=== PATIENT | female | born 1935 | race Caucasian/White ===

== ENCOUNTER → 2016-07-21 | Outpatient (CLI) | payer OTHER | LOC: FIMAGING 14:07 | PROVIDERS: ATTEND Family Medicine | DX: S32.10XA Unspecified fracture of sacrum, initial encounter for closed fracture (principal); S32.009A Unspecified fracture of unspecified lumbar vertebra, initial encounter for closed fracture ==

== ENCOUNTER 2016-11-11 18:55 | Inpatient (IN) | payer OTHER ==
[2016-11-11] MEDS ORDERED: NS 500 ML IV ONE (19:56)
--- NOTE | 2016-11-11 19:59 | EDPHY ---
H & P Stated Complaint: rolled out of bed last night onto walker, r ankle pain Time Seen by Provider: 11/11/16 19:42 HPI/ROS: CHIEF COMPLAINT: Right ankle swelling altered mental status HISTORY OF PRESENT ILLNESS: The patient is an 81-year-old female whose daughter brings her to the emergency department with her daughter complaining of swelling in her right ankle. She thinks that it may have occurred when she rolled out of bed this morning. She does not remember injuring it however. She is able to ambulate. She denies any hip or knee pain. She has very slight swelling in the left ankle as well but 2+ edema right. No pain with range of motion or palpation. According to the daughter the patient has also been increasingly confused today compared to baseline and compared to yesterday. No fever. No urinary symptoms. No abdominal pain, nausea vomiting. No lightheadedness or dizziness or headaches. Patient states that she feels fine. She is more worried about her ankle. She does not have any focal neurologic deficits. REVIEW OF SYSTEMS: Constitutional: denies: chills, fever, recent illness, recent injury EENTM: denies: blurred vision, double vision, nose congestion Respiratory: denies: cough, shortness of breath Cardiac: denies: chest pain, irregular heart rate, lightheadedness, palpitations Gastrointestinal/Abdominal: denies: abdominal pain, diarrhea, nausea, vomiting, blood streaked stools Genitourinary: denies: dysuria, frequency, hematuria, pain Musculoskeletal: denies: joint pain, muscle pain Skin: denies: lesions, rash, jaundice, bruising Neurological: denies: headache, numbness, paresthesia, tingling, dizziness, weakness Hematologic/Lymphatic: denies: blood clots, easy bleeding, easy bruising Immunologic/allergic: denies: HIV/AIDS, transplant EXAM: GENERAL: Well-appearing, well-nourished and in no acute distress. HEAD: Atraumatic, normocephalic. EYES: Pupils equal round and reactive to light, extraocular movements intact, sclera anicteric, conjunctiva are normal. ENT: TMs normal, nares patent, oropharynx clear without exudates. Moist mucous membranes. NECK: Normal range of motion, supple without lymphadenopathy or JVD. LUNGS: Breath sounds clear to auscultation bilaterally and equal. No wheezes rales or rhonchi. HEART: Regular rate and rhythm without murmurs, rubs or gallops. ABDOMEN: Soft, nontender, normoactive bowel sounds. No guarding, no rebound. No masses appreciated. BACK: No CVA tenderness, no spinal tenderness, step-offs or deformities EXTREMITIES: Slight edema in both ankles right greater than left, no tenderness or swelling or erythema no pain with range of motion. NEUROLOGICAL: Cranial nerves II through XII grossly intact. Normal speech, normal gait. 5/5 strength, normal movement in all extremities, normal sensation PSYCH: Normal mood, normal affect. SKIN: Warm, dry, normal turgor, no visible rashes or lesions. Source: Patient Exam Limitations: No limitations - Personal History Current Tetanus/Diphtheria Vaccine: Unsure Current Tetanus Diphtheria and Acellular Pertussis (TDAP): Unsure - Medical/Surgical History Hx Asthma: No Hx Chronic Respiratory Disease: No Hx Diabetes: No Hx Cardiac Disease: No Hx Renal Disease: No Hx Cirrhosis: No Hx Alcoholism: No Hx HIV/AIDS: No Hx Splenectomy or Spleen Trauma: No Other PMH: hypothyroid - Family History Significant Family History: No pertinent family hx - Social History Smoking Status: Never smoked Alcohol Use: Sober Drug Use: None Constitutional: Initial Vital Signs Temperature (C) 36.0 C 11/11/16 18:59 Heart Rate 78 11/11/16 18:59 Respiratory Rate 16 11/11/16 18:59 Blood Pressure 144/61 H 11/11/16 18:59 O2 Sat (%) 97 11/11/16 18:59 O2 Delivery Mode Room Air Allergies/Adverse Reactions: No Known Allergies Allergy (Verified 12/07/11 09:18) Home Medications: Medication Instructions Recorded Levothyroxine [Synthroid 50 mcg 50 mcg PO DAILY06 10/23/09 (*)] Aspirin [Aspirin 81mg (*)] 81 mg PO DAILY 11/12/16 Cholecalciferol Vit D3 [Vitamin D3 2,000 units PO DAILY 11/12/16 2000 units tab (OTC)] Donepezil HCl [Aricept] 11.5 mg PO HS 11/12/16 levOFLOXACIN [Levofloxacin] 500 mg PO DAILY #8 tablet 11/12/16 Medical Decision Making - Diagnostics EKG Interpretation: An EKG obtained and was read and documented in trace view. Please see trace view for full reading and report. Sinus rhythm, unchanged from previous Imaging: Discussed imaging studies w/ inbound call center representative Radiologist, I viewed and interpreted images myself ED Course/Re-evaluation: The patient's initial lactate was not placed on ice. The 2nd 1 was. I suspect that she is not truly septic. We will have given her the fluid boluses regardless and antibiotics. I will admit her for urinary tract infection and altered mental status. No obvious explanation for her right ankle swelling. 10:35 p.m. we discussed the case with Kitty Mendes who will admit to the hospital service. Differential Diagnosis: Partial list of the Differential diagnosis considered include but were not limited to; urinary tract infection, ankle sprain, fracture and although unlikely based on the history and physical exam, I also considered cellulitis, CVA, acute coronary disease, DVT. 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 Medications Given: Discontinued Medications Sodium Chloride (Ns) 500 mls @ 1,000 mls/hr IV ONCE ONE PRN Reason: Protocol Stop: 11/11/16 20:25 Last Admin: 11/11/16 20:15 Dose: 500 mls Ceftriaxone Sodium/Dextrose (Rocephin 1 Gm (Premix)) 50 mls @ 100 mls/hr IV EDNOW ONE PRN Reason: Protocol Stop: 11/11/16 22:53 Last Admin: 11/11/16 22:44 Dose: 50 mls Sodium Chloride (Ns) 2,000 mls @ 4,000 mls/hr 30 ml/kg infuse over 30 min ( 2000 ml) IV EDNOW ONE PRN Reason: Protocol Stop: 11/11/16 22:54 Last Admin: 11/11/16 22:40 Dose: 2,000 mls Departure - Departure Disposition: [facility] Inpatient Acute Clinical Impression: Urinary tract infection Qualifiers: Urinary tract infection type: acute cystitis Hematuria presence: without hematuria Qualified Code(s): N30.00 - Acute cystitis without hematuria Altered mental status Qualifiers: Altered mental status type: disorientation Qualified Code(s): R41.0 - Disorientation, unspecified Condition: Fair
--- NOTE | 2016-11-11 20:22 | CPEKG ---
Heart Rate: 90 RR Interval: 667 P-R Interval: 136 QRSD Interval: 86 QT Interval: 376 QTC Interval: 460 P Roberts: 84 QRS Roberts: 72 T Wave Roberts: -32 EKG Severity - NORMAL ECG - EKG Impression: SINUS RHYTHM EKG Impression: unchanged from previous Electronically Signed By: Ravindra Saleh 11-Nov-2016 20:53:28
[2016-11-11 20:34] LABS: % IMMATURE GRANULYOCYTES 0.8 % (0.0-1.1); ABSOLUTE IMMATURE GRANULOCYTES 0.07 10^3/uL (0.00-0.10); ADD DIFF? NO; ADD MORPH? NO; ADD SCAN? NO; ATYPICAL LYMPHOCYTE FLAG 0 (0-99); FRAGMENT RBC FLAG 0 (0-99); HEMATOCRIT 35.7 % (38.0-47.0); HEMOGLOBIN 11.7 g/dL (12.6-16.3); LEFT SHIFT FLG 10 (0-99); LIPEMIA HEMOLYSIS FLAG 80 (0-99); MEAN CELL HEMOGLOBIN 33.7 pg (27.9-34.1); MEAN CELL HEMOGLOBIN CONCENTR. 32.8 g/dL (32.4-36.7); MEAN CELL VOLUME 102.9 fL (81.5-99.8); PLATELET CLUMPS FLAG 10 (0-99); PLATELET COUNT 166 10^3/uL (150-400); RED BLOOD CELL COUNT 3.47 10^6/uL (4.18-5.33); RED CELL DISTRIBUTION WIDTH 14.2 % (11.5-15.2)
[2016-11-11 20:43] LABS: APTT 26.1 SEC (23.0-38.0); INR 1.03 (0.83-1.16); PROTIME(PATIENT) 13.4 SEC (12.0-15.0)
[2016-11-11 20:49] LABS: ALANINE AMINOTRANSFERASE 38 IU/L (9-52); ALBUMIN 3.9 g/dL (3.5-5.0); ALKALINE PHOSPHATASE 96 IU/L (38-126); ANION GAP 8 mEq/L (8-16); ASPARTATE AMINOTRANSFERASE 30 IU/L (14-46); BILIRUBIN,TOTAL 1.7 mg/dL (0.1-1.4); BILIRUBIN-CONJUGATED 0.4 mg/dL (0.0-0.5); BILIRUBIN-UNCONJUGATED 1.3 mg/dL (0.0-1.1); CALCIUM 9.6 mg/dL (8.5-10.4); CARBON DIOXIDE 23 mEq/l (22-31); CHLORIDE 108 mEq/L (97-110); CREATININE 0.7 mg/dL (0.6-1.0); GLOMERULAR FILTRATION RATE > 60; GLUCOSE 122 mg/dL (70-100); POTASSIUM 3.5 mEq/L (3.5-5.2); SODIUM 139 mEq/L (134-144); TOTAL PROTEIN 6.8 g/dL (6.3-8.2)
[2016-11-11 21:01] LABS: TROPONIN I < 0.012 ng/mL (0-0.034)
[2016-11-11 21:27] LABS: LACGHOST ORDER
[2016-11-11 22:07] LABS: BACTERIA 4+ /hpf (NONE SEEN); COLOR YELLOW; LEUKOCYTE ESTERASE,URINE 2+ (NEGATIVE); MUCUS 3+ /lpf (NONE-1+); NITRITE,URINE NEGATIVE (NEGATIVE); WBC,URINE 50-182 /hpf (0-3)
[2016-11-11] MEDS ORDERED: NS 2,000 ML IV ONE (22:25)
--- NOTE | 2016-11-11 23:50 | PDGENHP ---
History and Physical - Chief Complaint confusion, fall - History of Present Illness Patient is an 81 year old female with hypothyroidism, mild dementia, history of frequent falls who presents to the ED after a fall this morning and altered mental status. Patient lives alone in an independent living facility ([facility]); this morning at around 430AM she was attempting to get out of bed to use the bathroom, however tripped over the walker that was next to her bed. She fell down to the ground, did not lose consciousness, but could not get back up due to generalized weakness. She was able to press her call button and assistance came. She was evaluated by SNF staff, her daughter was called and no major injuries/abnormalities were discovered, so she was not transported to the ED at that time. Patient states she went back to bed, woke up feeling fatigued, generally weak and lacking appetite. When her daughter came to visit at about 5pm, she found her mother to be slightly confused, had ankle swelling and was significantly weak, so she brought her to the ED for further assessment. She denies any recent fevers, chills, headache, chest pain, palpitations, cough , shortness of breath, nausea, vomiting, diarrhea or obvious urinary symptoms, although she is incontinent at baseline. On arrival to the ED, patient was afebrile and hemodynamically stable. Labs revealed normal cbc and bmp, initially elevated lactic acid. CXR was unremarkable, EKG showed normal sinus rhythm and imaging of her R ankle showed no acute fracture. CT head was also negative for any acute abnormalities. UA was then found to be positive for wbc and leuk esterase, so she was cultured, given IV antibiotics and admitted for further management. History Information - Allergies/Home Medication List Allergies/Adverse Reactions: No Known Allergies Allergy (Verified 12/07/11 09:18) Home Medications: Synthroid 10/23/09 [Last Taken Unknown] I have personally reviewed and updated: family history, medical history, social history, surgical history - Past Medical History Additional medical history: hypothyroidism. mild dementia. frequent falls - Surgical History Additional surgical history: hysterectomy. appendenctomy. bilateral hip replacements - Family History Positive for: non-pertinent - Social History Smoking Status: Never smoked Alcohol Use: None Drug Use: None Additional social history: Patient originally from [facility], lives in Independent living, daughter lives nearby. Review of Systems ROS: 10pt was reviewed & negative except for what was stated in HPI & below Physical Exam Temp Pulse Resp BP Pulse Ox 36.9 C 70 18 131/67 H 93 11/11/16 22:26 11/11/16 23:19 11/11/16 23:19 11/11/16 23:19 11/11/16 23:19 Constitutional: no apparent distress, appears nourished, not in pain Eyes: PERRL, anicteric sclera, EOMI Ears, Nose, Mouth, Throat: moist mucous membranes, hearing normal, ears appear normal, no oral mucosal ulcers Cardiovascular: regular rate and rhythym, no murmur, rub, or gallop, pulses symmetric bilaterally, edema (trace bilateral LE edema), No JVD Peripheral Pulses: 2+: dorsalis-pedis (R), dorsalis-pedis (L) Respiratory: no respiratory distress, no rales or rhonchi, clear to auscultation Gastrointestinal: normoactive bowel sounds, soft, non-tender abdomen, no palpable masses, No guarding, No rebound, No distension Genitourinary: no bladder fullness, no bladder tenderness Skin: warm, normal color, no fluctuance, no induration, abrasion (scattered abrasions on upper extremities; L elbow abrasion), No mottled Musculoskeletal: full muscle strength, no muscle tenderness, normal joint ROM, no joint effusions Neurologic: AAOx3, sensation intact bilaterally, CN II-XII Intact, No weakness, No numbness, No pronator drift, No facial droop Psychiatric: interacting appropriately, not anxious, not encephalopathic, thought process linear Lab Data & Imaging Review 11/11/16 20:15 11/11/16 20:15 WBC 8.48 10^3/uL (3.80-9.50) 11/11/16 20:15 RBC 3.47 10^6/uL (4.18-5.33) L 11/11/16 20:15 Hgb 11.7 g/dL (12.6-16.3) L 11/11/16 20:15 Hct 35.7 % (38.0-47.0) L 11/11/16 20:15 MCV 102.9 fL (81.5-99.8) H 11/11/16 20:15 MCH 33.7 pg (27.9-34.1) 11/11/16 20:15 MCHC 32.8 g/dL (32.4-36.7) 11/11/16 20:15 RDW 14.2 % (11.5-15.2) 11/11/16 20:15 Plt Count 166 10^3/uL (150-400) 11/11/16 20:15 MPV 11.0 fL (8.7-11.7) 11/11/16 20:15 Neut % (Auto) 68.9 % (39.3-74.2) 11/11/16 20:15 Lymph % (Auto) 18.4 % (15.0-45.0) 11/11/16 20:15 Nuckolls % (Auto) 8.3 % (4.5-13.0) 11/11/16 20:15 Eos % (Auto) 2.9 % (0.6-7.6) 11/11/16 20:15 Baso % (Auto) 0.7 % (0.3-1.7) 11/11/16 20:15 Nucleat RBC Rel Count 0.0 % (0.0-0.2) 11/11/16 20:15 Absolute Neuts (auto) 5.84 10^3/uL (1.70-6.50) 11/11/16 20:15 Absolute Lymphs (auto) 1.56 10^3/uL (1.00-3.00) 11/11/16 20:15 Absolute Monos (auto) 0.70 10^3/uL (0.30-0.80) 11/11/16 20:15 Absolute Eos (auto) 0.25 10^3/uL (0.03-0.40) 11/11/16 20:15 Absolute Basos (auto) 0.06 10^3/uL (0.02-0.10) 11/11/16 20:15 Absolute Nucleated RBC 0.00 10^3/uL (0-0.01) 11/11/16 20:15 Immature Gran % 0.8 % (0.0-1.1) 11/11/16 20:15 Immature Gran # 0.07 10^3/uL (0.00-0.10) 11/11/16 20:15 PT 13.4 SEC (12.0-15.0) 11/11/16 20:15 INR 1.03 (0.83-1.16) 11/11/16 20:15 APTT 26.1 SEC (23.0-38.0) 11/11/16 20:15 VBG Lactic Acid 0.8 mmol/L (0.7-2.1) 11/11/16 22:02 Sodium 139 mEq/L (134-144) 11/11/16 20:15 Potassium 3.5 mEq/L (3.5-5.2) 11/11/16 20:15 Chloride 108 mEq/L (97-110) 11/11/16 20:15 Carbon Dioxide 23 mEq/l (22-31) 11/11/16 20:15 Anion Gap 8 mEq/L (8-16) 11/11/16 20:15 BUN 23 mg/dL (7-23) 11/11/16 20:15 Creatinine 0.7 mg/dL (0.6-1.0) 11/11/16 20:15 Estimated GFR > 60 11/11/16 20:15 Glucose 122 mg/dL (70-100) H 11/11/16 20:15 Calcium 9.6 mg/dL (8.5-10.4) 11/11/16 20:15 Total Bilirubin 1.7 mg/dL (0.1-1.4) H 11/11/16 20:15 Conjugated Bilirubin 0.4 mg/dL (0.0-0.5) 11/11/16 20:15 Unconjugated Bilirubin 1.3 mg/dL (0.0-1.1) H 11/11/16 20:15 AST 30 IU/L (14-46) 11/11/16 20:15 ALT 38 IU/L (9-52) 11/11/16 20:15 Alkaline Phosphatase 96 IU/L (38-126) 11/11/16 20:15 Troponin I < 0.012 ng/mL (0-0.034) 11/11/16 20:15 NT-Pro-B Natriuret Pep 127 pg/mL (0-450) 11/11/16 20:15 Total Protein 6.8 g/dL (6.3-8.2) 11/11/16 20:15 Albumin 3.9 g/dL (3.5-5.0) 11/11/16 20:15 Lipase 104.0 IU/L (23-300) 11/11/16 20:15 Urine Color YELLOW 11/11/16 21:15 Urine Appearance HAZY 11/11/16 21:15 Urine pH 5.0 (5.0-7.5) 11/11/16 21:15 Ur Specific [place] 1.020 (1.002-1.030) 11/11/16 21:15 Urine Protein NEGATIVE (NEGATIVE) 11/11/16 21:15 Urine Ketones NEGATIVE (NEGATIVE) 11/11/16 21:15 Urine Blood 2+ (NEGATIVE) H 11/11/16 21:15 Urine Nitrate NEGATIVE (NEGATIVE) 11/11/16 21:15 Urine Bilirubin NEGATIVE (NEGATIVE) 11/11/16 21:15 Urine Urobilinogen 2.0 EU (0.2-1.0) H 11/11/16 21:15 Ur Leukocyte Esterase 2+ (NEGATIVE) H 11/11/16 21:15 Urine RBC 5-10 /hpf (0-3) H 11/11/16 21:15 Urine WBC 50-182 /hpf (0-3) H 11/11/16 21:15 Ur Epithelial Cells NONE SEEN /lpf (NONE-1+) 11/11/16 21:15 Urine Bacteria 4+ /hpf (NONE SEEN) H 11/11/16 21:15 Urine Mucus 3+ /lpf (NONE-1+) H 11/11/16 21:15 Urine Glucose NEGATIVE (NEGATIVE) 11/11/16 21:15 Visualized and Interpreted Chest x-ray results: Yes Chest X-Ray results: no infiltrate Visualized and Interpreted imaging results: Yes Interpretation: CT head: no acute abnormalitites; chronic atrophy. R ankle XRay: no acute fracture. LE doppler: no dvt present Visualized and Interpreted EKG results: Yes EKG Interpretation: Positive for: normal sinsus rhythm (no st/t wave abnormalities) Assessment & Plan Assessment: Patient is an 81 year old female with hypothyroidism, mild dementia and history of frequent falls, who presents to the ED with generalized weakness, altered mental status and a fall earlier in the day. ED evaluation reveals acute UTI. Plan: # fall Per patient and daughter's description of the event, sound to be mechanical in nature. She denies any preceding/associated symptoms. Troponin and BNP are negative and EKG is nonischemic. Will check TTE in am, treat acute infection and obtain PT/OT evaluation. # acute encephalopathy Per daughter, patient has very mild dementia, but today was acutely more confused than her baseline. Likely metabolic encephalopathy due to acute infection. The rest of labs, including electrolytes, are within normal limits and CT head also is negative for any acute abnormalities. Will check TSH, continue home donepezil and monitor. # UTI Patient does not meet sepsis or SIRS criteria on presentation, but positive UA in setting of acute encephalopathy/generalized weakness is consistent with UTI. Will continue antibiotics and monitor cultures. # hypothyroidism Will check TSH and resume home synthroid. # dispo: admit to observation status # gen: regular diet DVT ppx: lovenox Full code
[2016-11-11] MEDS ORDERED: ACETAMINOPHEN 325 MG TAB PO PRN (23:56)
[2016-11-11] MEDS ORDERED: ONDANSETRON DISINTEGRATING 4 MG TAB PO PRN (23:56)
[2016-11-11] MEDS ORDERED: ONDANSETRON 4 MG/2 ML VIAL IVP PRN (23:56)
[2016-11-12 04:41] LABS: % IMMATURE GRANULYOCYTES 0.4 % (0.0-1.1); ABSOLUTE IMMATURE GRANULOCYTES 0.03 10^3/uL (0.00-0.10); ADD DIFF? NO; ADD MORPH? NO; ADD SCAN? NO; ATYPICAL LYMPHOCYTE FLAG 0 (0-99); FRAGMENT RBC FLAG 0 (0-99); HEMATOCRIT 28.8 % (38.0-47.0); HEMOGLOBIN 9.5 g/dL (12.6-16.3); LEFT SHIFT FLG 10 (0-99); LIPEMIA HEMOLYSIS FLAG 80 (0-99); MEAN CELL HEMOGLOBIN 33.9 pg (27.9-34.1); MEAN CELL VOLUME 102.9 fL (81.5-99.8); MEAN PLATELET VOLUME 11.1 fL (8.7-11.7); PLATELET CLUMPS FLAG 0 (0-99); PLATELET COUNT 128 10^3/uL (150-400); RED CELL DISTRIBUTION WIDTH 14.2 % (11.5-15.2)
[2016-11-12 05:03] LABS: ALANINE AMINOTRANSFERASE 32 IU/L (9-52); ALBUMIN 2.6 g/dL (3.5-5.0); ALKALINE PHOSPHATASE 66 IU/L (38-126); ANION GAP 4 mEq/L (8-16); ASPARTATE AMINOTRANSFERASE 25 IU/L (14-46); BILIRUBIN,TOTAL 0.9 mg/dL (0.1-1.4); CALCIUM 8.5 mg/dL (8.5-10.4); CARBON DIOXIDE 22 mEq/l (22-31); CHLORIDE 113 mEq/L (97-110); CREATININE 0.7 mg/dL (0.6-1.0); GLOMERULAR FILTRATION RATE > 60; GLUCOSE 132 mg/dL (70-100); MAGNESIUM 1.8 mg/dL (1.6-2.3); POTASSIUM 3.6 mEq/L (3.5-5.2); SODIUM 139 mEq/L (134-144); TOTAL PROTEIN 5.1 g/dL (6.3-8.2)
[2016-11-12 05:14] LABS: TROPONIN I 0.022 ng/mL (0-0.034)
[2016-11-12 05:32] LABS: CREATINE KINASE-MB FRACTION 3.55 ng/mL (0-3.19)
[2016-11-12 06:09] LABS: CK-MB INTERPRETATION NEGATIVE (NEGATIVE)
[2016-11-12] MEDS: ENOXAPARIN 40 MG/0.4 ML SYR SC SCH (08:51)
[2016-11-12] MEDS: CHOLECALCIFEROL VIT D3 2,000 UNITS TAB/CAP PO SCH (10:46)
[2016-11-12] MEDS: ASPIRIN 81 MG CHEWABLE TAB PO SCH (10:46)
--- NOTE | 2016-11-12 13:48 | PDIAF ---
- Diagnosis Code Status: Full Code - Medication Management Discharge Medications: Medications to Continue on Transfer Levothyroxine [Synthroid 50 mcg (*)] 50 mcg PO DAILY06 10/23/09 [Last Taken ] Aspirin [Aspirin 81mg (*)] 81 mg PO DAILY 11/12/16 [Last Taken 11/11/16] Cholecalciferol Vit D3 [Vitamin D3 2000 units tab (OTC)] 2,000 units PO DAILY [Last Taken 11/11/16] Donepezil HCl [Aricept] 11.5 mg PO HS 11/12/16 [Last Taken 11/10/16] levOFLOXACIN [Levofloxacin] 500 mg PO DAILY #8 tablet 11/12/16 [Last Taken Unknown] Discharge Medications: Refer to the Discharge Home Medication list for PRN reason. - Orders Services needed: Home Care, Registered Nurse, Physical Therapy, Occupational Therapy Home Care Face to Face: I certify that this patient was under my care and that I had the required [id number] encounter meeting the encounter requirements on the discharge day. My findings support the fact that the patient is homebound as defined in CMS Chapter 7 Medicare Benefits Manual 30.1.1, The condition of the patient is such that there exists a normal inability to leave home and consequently, leaving home would require a considerable and taxing effort. - Follow Up Care Current Providers and Referrals: Laney Abdullahi MD [Primary Care Provider] - As per Instructions
--- NOTE | 2016-11-12 16:01 | HOSPPROG ---
Hospitalist Progress Note Assessment/Plan: 81 yo F with hx of hypothyroid, mild dementia and frequent falls admitted with acute encephalopathy in setting of uti # acute encephalopathy: resolved and seems to be back at baseline, she does have baseline dementia however # UTI: e/o UTI on UA, cultures pending. Likely etiology for above. Started on ctx and will transition to oral abx at dc when culture data available. Will treat as complicated UTI for a longer course given associated encephalopathy as above # frequent falls: has been an ongoing issue apparently, pt/ot involved and are both thinking she will likely be able to go home with home health but felt that it might be best to monitor at least one more day in house prior to dc given safety concerns. # right lower extremity edema: negative us for dvt, xray personally reviewed without e/o fracture # hypothyroid: TSH appropriate, continued on lt4 # IP status, will need > 48 hours stay for multiple active issues and unsafe in her mobility Patient new to my care. Old records reviewed and summarized as above. Care plan reviewed with CM. Subjective: no significant overnight events, patient is feeling well and eager to dc home Objective: Vital Signs Temp Pulse Resp BP Pulse Ox 36.6 C 82 18 108/55 L 98 11/12/16 11:24 11/12/16 11:24 11/12/16 11:24 11/12/16 11:24 11/12/16 11:24 Laboratory Results 11/12/16 04:13 11/12/16 04:13 11/11/16 11/12/16 11/13/16 05:59 05:59 05:59 Intake Total 2250 Balance 2250 PT 13.4 SEC (12.0-15.0) 11/11/16 20:15 INR 1.03 (0.83-1.16) 11/11/16 20:15 awake alert nad anicteric op clear rrr no mrg cta b soft nt nd rle pitting edema to above ankle warm dry well perfused oriented appropriate, limited short term memory - Time Spent With Patient Time Spent with Patient: greater than 35 minutes Time Spent with Patient: Greater than 35 minutes spent on this patients care, greater than 50% of time spent counseling, educating, and coordinating care regarding the above mentioned plan. ICD10 Worksheet Patient Problems: Problems Problem Status Onset Urinary tract infection Acute Altered mental status Acute
[2016-11-12] MEDS: DONEPEZIL PO SCH (20:59)
[2016-11-12] MEDS ORDERED: DONEPEZIL HCL PO SCH (21:00)
[2016-11-13 04:30] LABS: HEMATOCRIT 29.8 % (38.0-47.0); MEAN CELL HEMOGLOBIN 34.4 pg (27.9-34.1); MEAN CELL HEMOGLOBIN CONCENTR. 33.6 g/dL (32.4-36.7); MEAN CELL VOLUME 102.4 fL (81.5-99.8); RED BLOOD CELL COUNT 2.91 10^6/uL (4.18-5.33); RED CELL DISTRIBUTION WIDTH 14.5 % (11.5-15.2)
[2016-11-13] MEDS: LEVOTHYROXINE 50 MCG TAB PO SCH (06:45)
[2016-11-13] MEDS: ENOXAPARIN 40 MG/0.4 ML SYR SC SCH (09:30)
[2016-11-13] MEDS: CHOLECALCIFEROL VIT D3 2,000 UNITS TAB/CAP PO SCH (09:30)
[2016-11-13] MEDS: ASPIRIN 81 MG CHEWABLE TAB PO SCH (09:30)
--- NOTE | 2016-11-13 18:49 | HOSPPROG ---
Hospitalist Progress Note Assessment/Plan: * Metabolic encephalopathy - improving * UTI -IV ceftriaxone pending culture * Dementia - recurrent falls -not yet safe for discharge home Subjective: No complaints, thinks she is getting stronger. Objective: Vital Signs Temp Pulse Resp BP Pulse Ox 36.6 C 69 16 116/51 L 95 11/13/16 17:59 11/13/16 17:59 11/13/16 17:59 11/13/16 17:59 11/13/16 17:59 11/12/16 11/13/16 11/14/16 05:59 05:59 05:59 Intake Total 300 Balance 300 PT 13.4 SEC (12.0-15.0) 11/11/16 20:15 INR 1.03 (0.83-1.16) 11/11/16 20:15 - Physical Exam Constitutional: no apparent distress, appears nourished, not in pain Cardiovascular: regular rate and rhythym, no murmur, rub, or gallop Respiratory: no respiratory distress, no rales or rhonchi, clear to auscultation Gastrointestinal: normoactive bowel sounds, soft, non-tender abdomen, no palpable masses Skin: no rashes or abrasions, no fluctuance, no induration Neurologic: AAOx3, sensation intact bilaterally Psychiatric: interacting appropriately, not anxious, not encephalopathic, thought process linear ICD10 Worksheet Patient Problems: Problems Problem Status Onset Altered mental status Acute Urinary tract infection Acute
[2016-11-13] MEDS: DONEPEZIL PO SCH (20:21)
[2016-11-14] MEDS: LEVOTHYROXINE 50 MCG TAB PO SCH (06:33)
[2016-11-14] MEDS: CHOLECALCIFEROL VIT D3 2,000 UNITS TAB/CAP PO SCH (08:05)
[2016-11-14] MEDS: ASPIRIN 81 MG CHEWABLE TAB PO SCH (08:05)
[2016-11-14] MEDS: ENOXAPARIN 40 MG/0.4 ML SYR SC SCH (08:06)
--- NOTE | 2016-11-14 11:19 | PDIAF ---
- Diagnosis Diagnosis: UTI with encephalopathy Code Status: Full Code - Medication Management Discharge Medications: Medications to Continue on Transfer Levothyroxine [Synthroid 50 mcg (*)] 50 mcg PO DAILY06 10/23/09 [Last Taken ] Aspirin [Aspirin 81mg (*)] 81 mg PO DAILY 11/12/16 [Last Taken 11/11/16] Cholecalciferol Vit D3 [Vitamin D3 2000 units tab (OTC)] 2,000 units PO DAILY [Last Taken 11/11/16] Donepezil HCl [Aricept] 11.5 mg PO HS 11/12/16 [Last Taken 11/10/16] Cephalexin [Keflex (*)] 500 mg PO BID #10 cap 11/14/16 [Last Taken Unknown] Discharge Medications: Refer to the Discharge Home Medication list for PRN reason. - Orders Services needed: Home Care, Registered Nurse, Physical Therapy, Occupational Therapy Home Care Face to Face: I certify that this patient was under my care and that I had the required [id number] encounter meeting the encounter requirements on the discharge day. My findings support the fact that the patient is homebound as defined in CMS Chapter 7 Medicare Benefits Manual 30.1.1, The condition of the patient is such that there exists a normal inability to leave home and consequently, leaving home would require a considerable and taxing effort. Diet Recommendation: no restrictions on diet Additional: Home medication review and assistance - Follow Up Care Current Providers and Referrals: Laney Abdullahi MD [Primary Care Provider] - As per Instructions
[2016-11-14] MEDS ORDERED: CEPHALEXIN 500 MG CAP PO SCH (12:00)
--- NOTE | 2016-11-14 17:07 | GDS ---
[f rep st] DISCHARGE SUMMARY Date of discharge 11/15/16 DISCHARGE DIAGNOSES: 1. Urinary tract infection. 2. Metabolic encephalopathy. 3. Dementia. HISTORY: The patient is an 81-year-old female, who presents with confusion and increasing weakness. She was diagnosed with urinary tract infection. The urine culture has grown klebsiella sensitive to cephalosporins. She was treated with IV ceftriaxone in the hospital and is being discharged on oral Keflex. She did have significant confusion and weakness on presentation, but that is improving to the point where she can discharge home safely to her independent living at the [place]. Home health PT, OT, and VNS has been arranged by Case Management. DISCHARGE MEDICATIONS: Please see computerized record for full detailed list. New medications: Keflex 500 mg p.o. twice daily for 5 more days additional. ADDITIONAL DISCHARGE INSTRUCTIONS: Home health PT, OT, VNS. Greater than 30 minutes' time was spent in arranging this discharge. Patient was seen and examined by me on the day of discharge. /[id number]/MODL MTDD
[2016-11-14] MEDS: CEPHALEXIN 500 MG CAP PO SCH (20:59)
[2016-11-14] MEDS: DONEPEZIL PO SCH (21:01)
[2016-11-15] MEDS: LEVOTHYROXINE 50 MCG TAB PO SCH (06:27)
[2016-11-15 08:06] VITALS: RESP 15
[2016-11-15] MEDS: CHOLECALCIFEROL VIT D3 2,000 UNITS TAB/CAP PO SCH (10:24)
[2016-11-15] MEDS: ENOXAPARIN 40 MG/0.4 ML SYR SC SCH (10:25)
[2016-11-15] MEDS: ASPIRIN 81 MG CHEWABLE TAB PO SCH (10:25)
[2016-11-15] MEDS: CEPHALEXIN 500 MG CAP PO SCH (10:25)
[2016-11-15 11:14] VITALS: BP 99/47; PULSE 72; TEMP 97.5; O2SAT 92
--- NOTE | 2016-11-15 16:09 | HOSPPROG ---
Hospitalist Progress Note Assessment/Plan: This document is to reflect my visit with Lupe on 11/14/16 * Metabolic encephalopathy - improving * UTI -PO Keflex * Dementia Per PT/OT okay for DC home with home health Daughter did not arrive for garbage pick up worker Subjective: no c/o - feels ready for home Objective: Vital Signs Temp Pulse Resp BP Pulse Ox 36.4 C 72 15 99/47 L 92 11/15/16 11:13 11/15/16 11:13 11/15/16 11:13 11/15/16 11:13 11/15/16 11:13 11/14/16 11/15/16 11/16/16 05:59 05:59 05:59 Intake Total 600 380 Balance 600 380 PT 13.4 SEC (12.0-15.0) 11/11/16 20:15 INR 1.03 (0.83-1.16) 11/11/16 20:15 - Physical Exam Constitutional: no apparent distress, appears nourished, not in pain Cardiovascular: regular rate and rhythym, no murmur, rub, or gallop Respiratory: no respiratory distress, no rales or rhonchi, clear to auscultation Gastrointestinal: normoactive bowel sounds, soft, non-tender abdomen, no palpable masses Skin: no rashes or abrasions, no fluctuance, no induration Neurologic: AAOx3, sensation intact bilaterally Psychiatric: interacting appropriately, not anxious, not encephalopathic, thought process linear ICD10 Worksheet Patient Problems: Problems Problem Status Onset Altered mental status Acute Urinary tract infection Acute
== END 2016-11-15 14:00 | disposition home health service (06) | DRG 689 ==
LOC: F2W 11-12 00:13 → OBSVTOIN 11-13 13:07
PROVIDERS: ADMIT Internal Medicine; ATTEND Internal Medicine
DX: N39.0 Urinary tract infection, site not specified (principal); B96.1 Klebsiella pneumoniae [K. pneumoniae] as the cause of diseases classified elsewhere; G93.41 Metabolic encephalopathy; M25.471 Effusion, right ankle; R29.6 Repeated falls; F03.90 Unspecified dementia, unspecified severity, without behavioral disturbance, psychotic disturbance, mood disturbance, and anxiety; E03.9 Hypothyroidism, unspecified
CPT/HCPCS: 96365; 97116-GP; 97161-GP; 97166-GO; 97530-GO; 97530-GP; 97535-GO; G0378; G8978-GP-CJ; G8979-GP-CI; G8987-GO-CJ; G8988-GO-CI; G8989-GO-CJ; J0696; J1650

== ENCOUNTER 2017-06-06 15:29 | Emergency (ER) | payer OTHER ==
[2017-06-06 15:38] VITALS: BP 151/61; PULSE 68; RESP 20; TEMP 97.7; O2SAT 99
--- NOTE | 2017-06-06 16:46 | EDPHY ---
H & P Stated Complaint: fall, left leg skin tear Time Seen by Provider: 06/06/17 16:45 HPI/ROS: HPI: This is a 82-year-old female presents with Chief Complaint: fall, left leg skin tear Location: Left lower leg Quality: Injury Duration: Prior to arrival Signs and Symptoms: +bleeding, no radiation, no numbness, no weakness, no tingling, no incontinence, no decreased range of motion, no swelling, + mild pain Timing: Sudden Severity: [id number] Context: Patient was sitting in a walker when she leaned towards the right side and lost her balance; falling from a sitting position in her walker onto tile floor. She reports that she hit her right shoulder 1st but somehow sustained a skin tear to her left lower leg that she suspects is due to hitting her leg on her walker. She denies LOC/head injury/neck injury/neck pain/ headache/dizziness/paresthesias/decreased range of motion. Fall was unwitnessed. Patient reports that she has a history of balance deficits that has been there for "years " and well-known to her primary care provider. Takes baby aspirin daily. Denies fever/chest pain/shortness of breath/nausea/ vomiting. Tetanus up-to-date Modifying Factors: None Comment: ROS: see HPI Constitutional: No fever, no chills, no weight loss Eyes: No blurred vision Respiratory: No shortness of breath, no cough Cardiovascular: No chest pain Gastrointestinal: No nausea, no vomiting no diarrhea Genitourinary: No dysuria Extremities: No myalgias Neurologic: No weakness, no numbness Skin: No rashes Hematologic: No bruising, no bleeding MEDICAL/SURGICAL/SOCIAL HISTORY: Medical history: Mild dementia, chronic balance deficits, hypothyroidism Surgical history: Denies Social history: Lives in independent living at [place]. Retired. CONSTITUTIONAL: Elderly female, nontoxic in appearance, awake and alert, no obvious distress HEENT: Atraumatic and normocephalic, PERRL, EOMI. no globe entrapment, no raccoon eyes. no Antunez signs.Tympanic membranes clear. No tympanic membrane rupture. Nares patent; no septal hematoma. Oropharynx clear, no exudate and moist pink mucosa. No malocclusion. no dental trauma. Airway patent. No lymphadenopathy. NECK: supple, no midline tenderness, flexion 45 degrees, extension 45 degrees, right and left lateral flexion 45 degrees. No meningismus. Cardiovascular: Normal S1/S2, regular rate, regular rhythm, without murmur rub or gallop. PULMONARY/CHEST: Symmetrical and nontender. no crepitus. Clear to auscultation bilaterally. Good air movement. No accessory muscle usage. ABDOMEN: Soft, nondistended, nontender, no ecchymosis, no rebound, no guarding , no peritoneal signs, no masses or organomegaly. No CVAT. PELVIC: no pain with rocking; bilateral hips flexion 125 degrees, extension 30 degrees, with no pain internal rotation and no pain external rotation. BACK: No midline tenderness, no paraspinous spasm, deep tendon reflexes 2/2, no pain with straight leg raise EXTREMITIES: 2/2 DP and PT pulses, left anterior lower leg; shows complex skin tear; right over the tib-fib is 6.5 cm x 3.5 cm superficial skin tear; lateral to the skin tears approximately 3.5 cm x 2.5 cm v-shaped skin tear. no deformities, no clubbing, no cyanosis or edema. NEUROLOGICAL: no focal neuro deficits. GCS 15. SKIN: Warm and dry, pallor, no erythema. no rash. Good capillary refill. Source: Patient Exam Limitations: No limitations - Personal History Current Tetanus/Diphtheria Vaccine: Yes Current Tetanus Diphtheria and Acellular Pertussis (TDAP): Yes Tetanus Vaccine Date: < 10 years - Medical/Surgical History Hx Asthma: No Hx Chronic Respiratory Disease: No Hx Diabetes: No Hx Cardiac Disease: No Hx Renal Disease: No Hx Cirrhosis: No Hx Alcoholism: No Hx HIV/AIDS: No Hx Splenectomy or Spleen Trauma: No Other PMH: hypothyroid, dementia - Social History Smoking Status: Never smoked Constitutional: Initial Vital Signs Temperature (C) 36.5 C 06/06/17 15:29 Heart Rate 68 06/06/17 15:29 Respiratory Rate 20 06/06/17 15:29 Blood Pressure 151/61 H 06/06/17 15:29 O2 Sat (%) 99 06/06/17 15:29 O2 Delivery Mode Room Air Allergies/Adverse Reactions: No Known Allergies Allergy (Verified 06/06/17 15:34) Home Medications: Medication Instructions Recorded Levothyroxine [Synthroid 50 mcg 50 mcg PO DAILY06 10/23/09 (*)] Aspirin [Aspirin 81mg (*)] 81 mg PO DAILY 11/12/16 Cholecalciferol Vit D3 [Vitamin D3 2,000 units PO DAILY 11/12/16 2000 units tab (OTC)] Donepezil HCl [Aricept] 11.5 mg PO HS 11/12/16 Medical Decision Making - Diagnostics Imaging Results: Imaging Impressions Tibia/Fibula X-Ray 06/06/17 16:50 Impression: No evidence for acute osseous abnormality. Procedures: Procedure: Laceration repair. Verbal consent was obtained from the patient. The 6.5 cm x 3 cm left anterior lower leg laceration was anesthetized in the usual fashion using 3 mL of 1% lidocaine with epinephrine. The wound was irrigated, draped and explored to its base with a gloved finger. There were no deep structures involved. No tendon injury was identified. The wound was repaired with 37, for 4-0 Vicryl in simple interrupted pattern. The procedure was performed by myself. ED Course/Re-evaluation: Wound care Tetanus booster up-to-date Let applied; irrigated copiously Able to approximate the deep incision directly over the anterior padilla with 7 absorbable sutures. Skin was reapproximated as best as possible; bacitracin; Xeroform; Tegaderm and then Eagle wrap applied. Patient is to call Wound Care Clinic on Thursday to have close follow-up Tib-fib x-ray reviewed my read shows no fracture No signs of neurovascular compromise/tenting of skin/compartment syndrome/ extremities and joints examined above and below area of concern and are neurovascularly intact. At discharge nurse notified me that daughter once patient is urine checked for infection as she had a fall approximately 1 month ago. Urinalysis ordered. Urinalysis is not show any signs of infection. This patient was seen under the supervision of my secondary supervising physician. I evaluated care for this patient independently. Discussed this patient with Dr. Chen who did not see the patient. Patient's presentation, labs/imaging, treatment and plan of care were discussed with secondary supervising physician. Differential Diagnosis: Differential diagnosis includes but is not limited to contusion, hematoma, skin tear, laceration, nerve injury, tibial fracture, fibula fracture. - Data Points Laboratory Results: 06/06/17 18:19 Urine Color YELLOW Urine Appearance CLEAR Urine pH 6.0 (5.0-7.5) Ur Specific [place] 1.012 (1.002-1.030) Urine Protein NEGATIVE (NEGATIVE) Urine Ketones NEGATIVE (NEGATIVE) Urine Blood 1+ H (NEGATIVE) Urine Nitrate NEGATIVE (NEGATIVE) Urine Bilirubin NEGATIVE (NEGATIVE) Urine Urobilinogen 2.0 EU H EU (0.2-1.0) Ur Leukocyte Esterase NEGATIVE (NEGATIVE) Urine RBC 10-15 /hpf H /hpf (0-3) Urine WBC NONE SEEN /hpf /hpf (0-3) Ur Epithelial Cells TRACE /lpf /lpf (NONE-1+) Urine Mucus TRACE /lpf /lpf (NONE-1+) Urine Glucose NEGATIVE (NEGATIVE) Medications Given: Discontinued Medications Tetracaine/Epinephrine/Lidocaine (Let Gel Topical) 1 ea TP EDNOW ONE Stop: 06/06/17 16:51 Last Admin: 06/06/17 16:56 Dose: 1 ea Departure - Departure Disposition: Home, Routine, Self-Care Clinical Impression: Skin tear of lower leg without complication Qualifiers: Encounter type: initial encounter Laterality: left Qualified Code(s): S81.812A - Laceration without foreign body, left lower leg, initial encounter Condition: Good Instructions: Skin Tear (ED), Care For Your Absorbable Stitches (ED) Additional Instructions: Keep the dressing dry and in place until seen by wound clinic for follow-up. Take Tylenol 650 mg every 4 hours as needed for pain. Please call the Wound Clinic on Thursday for follow-up either Thursday or Thursday. Urinalysis does not show any signs of infection. The x-rays obtained in the emergency department today demonstrate no evidence of an obvious fracture. Sometimes fractures are not obvious on the initial set of x-rays performed in the ED. For this reason, you should have repeat x-rays performed in 7-10 days if you are having any pain exclude the possibility of an occult fracture. Referrals: [facility] [Clinic] - As per Instructions
[2017-06-06] MEDS ORDERED: LET GEL TOPICAL 1 EA SYR TP ONE (16:50)
== END 2017-06-06 19:28 | disposition home or self-care (01) ==
LOC: EDUNIT#
PROC: 0HQLXZZ Repair Left Lower Leg Skin, External Approach (ICD-10-PCS; principal; 2017-06-06)
DX: S81.812A Laceration without foreign body, left lower leg, initial encounter (principal); W01.198A Fall on same level from slipping, tripping and stumbling with subsequent striking against other object, initial encounter

== ENCOUNTER 2017-06-07 14:31 | Emergency (ER) | payer OTHER ==
[2017-06-07 14:42] VITALS: TEMP 98.2
--- NOTE | 2017-06-07 16:58 | EDPHY ---
H & P Smoking Status: Never smoked Time Seen by Provider: 06/07/17 16:06 HPI/ROS: CHIEF COMPLAINT: Wound evaluation left leg HISTORY OF PRESENT ILLNESS: 82-year-old female presents to the emergency department with her daughter with evaluation of a wound to her left lower leg. The patient was seen in the emergency department yesterday and diagnosed with skin tear to her left lower extremity. This was partially sutured and then dressed. The daughter states that the wound dressing is saturated and is concerned about possible infection. The patient describes no pain. No purulent drainage. ROS: Denies numbness or tingling in her toes, retained foreign body, fevers or chills. (Savanah Reilly) Past Medical/Surgical History: Dementia, hypothyroidism (Savanah Reilly) Social History: and lives in independent living at the [facility] (Savanah Reilly) Physical Exam: On examination the patient has large skin tear to the left anterior lower leg. Vicryl sutures are noted in the most inferior portion. There is no surrounding redness, purulent drainage or signs of cellulitis or infection. No evidence of retained foreign body. Nontender to palpate. Full range of motion of her left lower extremity. No palpable bony tenderness. Daughter at bedside. (Savanah Reilly) Constitutional: Initial Vital Signs Temperature (C) 36.8 C 06/07/17 14:38 Heart Rate 82 06/07/17 14:38 Respiratory Rate 18 06/07/17 14:38 Blood Pressure 107/50 L 06/07/17 14:38 O2 Sat (%) 98 06/07/17 14:38 O2 Delivery Mode Room Air Allergies/Adverse Reactions: No Known Allergies Allergy (Verified 06/06/17 15:34) Home Medications: Medication Instructions Recorded Levothyroxine [Synthroid 50 mcg 50 mcg PO DAILY06 10/23/09 (*)] Aspirin [Aspirin 81mg (*)] 81 mg PO DAILY 11/12/16 Cholecalciferol Vit D3 [Vitamin D3 2,000 units PO DAILY 11/12/16 2000 units tab (OTC)] Donepezil HCl [Aricept] 11.5 mg PO HS 11/12/16 MDM/Departure - [facility] ED Course/Re-evaluation: 82-year-old female presents for re-evaluation of skin tear to the left lower extremity. The patient has no signs of cellulitis or infection. I do not think antibiotics are indicated. The dressing however was saturated this was changed. I do not think the patient needs admission to the hospital. The pillowcase cleaner has helped to arrange for wound care to be done at her place of independent living. The daughter is comfortable with this plan. She was given precautions for signs or symptoms of infection. They are comfortable taking her home. (Savanah Reilly) The patient was evaluated and managed by the physician camp assistant. I have reviewed this chart and I agree with the findings and plan of care as documented , as indicated by my signature. I am the secondary supervising physician. ( Tata Tan) - Depart Disposition: Home, Routine, Self-Care Clinical Impression: Skin tear of left lower leg without complication Qualifiers: Encounter type: initial encounter Qualified Code(s): S81.812A - Laceration without foreign body, left lower leg, initial encounter Condition: Good Instructions: Skin Tear (ED), Acute Wounds (ED) Additional Instructions: Daily dressing changes for the next 3 days at least. Should be seen by wound care this week to recheck. Return to the emergency department if he notices any signs or symptoms of infection such as redness, swelling, increased pain, fever, purulent drainage. Referrals: Laney Abdullahi MD [Primary Care Provider] - As per Instructions
[2017-06-07 17:07] VITALS: BP 133/85; PULSE 69; RESP 16; O2SAT 95
--- NOTE | 2017-06-07 17:33 | ASMTCMCOM ---
CM Note CM Note Notes: Patient presented to ED today for re-eval of her LLE skin tears that were assessed in the ED yesterday. Patient had a fall yesterday which resulted in the skin tears. Patient accompanied by her daughter Lashell Wolff ([phone]). Patient lives in Independent Living at [facility] ); spoke with Shabbir Corcoran with administration and he states patient is already receiving assistance through their Personalized Living services but is not sure if she only receives non-skilled or skilled care. Patient will need daily dressing changes for several days and follow-up with her PCP, Dr. Laney Abdullahi ([phone]). Lashell says she can provide tomorrow's dressing change but patient will need help starting Thursday. Spoke with Shabbir at [facility] and he will relay pt's need to clinical staff educator; this CM to follow up tomorrow to ensure patient is set up with necessary help and wound care. Date Signed: 06/07/2017 05:33 PM Electronically Signed By:Diane Carballo RN
--- NOTE | 2017-06-07 17:36 | ASDISCHSUM ---
Discharge Information Plan Status:Home with Home Health Medically Cleared to Leave: Discharge Date:06/07/2017 05:07 PM D/C Disposition:Home Health Service ADT D/C Disposition:Home, Routine, Self-Care Projected Discharge Date:06/07/2017 05:07 PM Transportation at D/C:Family Discharge Delay Reason: Follow-Up Date:06/07/2017 05:07 PM Discharge Slot: Final Diagnosis: Placement Information Patient Contact Information Contact Name:KWASI Relationship:Daughter Address[address] Work Phone: [facility]:[place] Alternate Phone: [facility]/Zip Code:[place] [address] Email: Financial Information Financial Class: Primary Plan Desc:MEDICARE OUTPATIENT Primary Plan Number:[id number] Secondary Plan Desc:[employer] Secondary Plan Number:[id number] Assessment Information [facility] CM Progress Note CM Note CM Note Notes: Patient presented to ED today for re-eval of her LLE skin tears that were assessed in the ED yesterday. Patient had a fall yesterday which resulted in the skin tears. Patient accompanied by her daughter Lashell Wolff ([phone]). Patient lives in Independent Living at [facility] ); spoke with Shabbir Corcoran with administration and he states patient is already receiving assistance through their Personalized Living services but is not sure if she only receives non-skilled or skilled care. Patient will need daily dressing changes for several days and follow-up with her PCP, Dr. Laney Abdullahi ([phone]). Lashell says she can provide tomorrow's dressing change but patient will need help starting Thursday. Spoke with Shabbir at [facility] and he will relay pt's need to operations staff specialist security; this CM to follow up tomorrow to ensure patient is set up with necessary help and wound care. Date Signed: 06/07/2017 05:33 PM Electronically Signed By:Diane Carballo RN LACE LACE Acuity / Level of Care Answers: No. Comorbidities - select Answers: Dementia all that apply Emergency dept visits in Answers: 3 last 6 months Score: 6 Date Signed: 06/07/2017 05:34 PM Electronically Signed By:Diane Carballo RN Intervention Information
--- NOTE | 2017-06-08 18:13 | ASMTCMCOM ---
CM Note CM Note Notes: [facility] ([phone]) staff re: patient needing ham stringer help the next few days for daily dressing changes. Spoke with KG Temple at [facility] and she says patient is already set up with their [facility] for PT/OT and so they will reach out to pt's PCP (Dr Abdlulahi) to provide order to add an RN. Windy to update patient and pt's daughter Lashell. CM available for further assistance if needed. Date Signed: 06/08/2017 06:13 PM Electronically Signed By:Diane Carballo RN
== END 2017-06-07 17:07 | disposition home or self-care (01) ==
DX: Z48.01 Encounter for change or removal of surgical wound dressing (principal); Z79.82 Long term (current) use of aspirin
CPT/HCPCS: G0463

== ENCOUNTER 2017-06-15 09:25 | Inpatient (IN) | payer OTHER ==
[2017-06-15 09:53] LABS: PLATELET COUNT 248 10^3/uL (150-400)
--- NOTE | 2017-06-15 11:08 | EDPHY ---
General - History Smoking Status: Never smoked Narrative: 1235: I have evaluated and participated in the management of this patient. My co-signature indicates that I have reviewed this chart and that I agree with the findings and the plan of care as documented. My personal history and physical findings include: The patient is an 82 y/o female with dementia who fell and struck her left padilla on her walker about 2 weeks ago. She was evaluated at that time and treated for a skin tear. It sounds like she has poor access to wound treatment at her current facility and has not had this bandage changed in 4 days. She returns to the ED today after another fall and her daughter is looking for assistance moving patient to higher level of care. Case management is involved. Mild erythema around scabbed and healing skin tear on left anterior padilla, mild warmth, no lymphangitis, afebrile. This may represent an early cellulitis. PA, case management, and patient's daughter will discuss options for her social situation. (Tata Tan) CHIEF COMPLAINT: Weakness HISTORY OF PRESENT ILLNESS: Patient presents with daughter at bedside the both complain of weakness. The weakness has been increasing over the past few weeks. She has had multiple falls from this. She has been seen in this facility multiple times, most recently 1 week ago. She says she has decreasing energy to ambulate. She has fallen multiple times but has been evaluated for this. She has no headache or neck pain. No chest pain. She did have some cough and sinus congestion recently. She has been around people with positive flu test at her residence. She has a skin injury to the left padilla that was treated a week ago with topical dressings. The dressings have not been changed daily. She has no current antibiotics for this. No fever. No vomiting. No abdominal pain. REVIEW OF SYSTEMS: Ten systems reviewed and are negative unless otherwise noted in the HPI PCP: Dr. Khan SPECIALISTS: None currently PAST MEDICAL HISTORY: Stage III dementia, hypothyroid, questionable depression PAST SURGICAL HISTORY: No recent surgeries SOCIAL HISTORY: Nonsmoker. Lives in independent living at [facility] FAMILY HISTORY: Noncontributory EXAMINATION General Appearance: Alert, no distress Head: normocephalic, atraumatic. No Antunez sign or raccoon eyes. Eyes: Pupils equal and round, no conjunctival pallor or injection ENT, Mouth: Mucous membranes moist Neck: Normal inspection, supple, non-tender. Painless range of motion all planes. Respiratory: Lungs are clear to auscultation. No wheezing rhonchi or crackles Cardiovascular: Regular rate and rhythm. Systolic murmur. Gastrointestinal: Abdomen is soft and nontender no tympany rigidity. No CVA tenderness. Back: non-tender, no bony abnormalities Neurological: GCS 15. Cranial nerves 2-12 grossly intact. A&O, nonfocal, no ataxia. Strength is 4/5 in all 4 extremities. Skin: Warm and dry, no rash. There is skin breakdown on the left anterior padilla with Mepilex dressings in place. There is moderate surrounding erythema and warmth.. No fluctuance or abscess noted. Extremities: Tenderness in the area of the skin tears. Range of motion is symmetric in the extremities. Psychiatric: Mood and affect normal DIFFERENTIAL DIAGNOSES: Including but not limited to weakness, dehydration, UTI, ACS, dementia, depression, anxiety MDM: 11:05 a.m. Generalized weakness with increasing severity over the past week, multiple falls. No specific complaint. Vital signs are stable. She is very weak when ambulating to the restroom. Urinalysis was ordered prior to my examination and shows no abnormalities. CBC reveals mild leukocytosis without significant abnormalities otherwise. Chemistries unremarkable. I have added other laboratory studies, EKG and chest x-ray. She is in no acute distress. 12:00 p.m. Laboratory studies reveal mild leukocytosis. Urinalysis unremarkable. I have removed the dressings on the skin tears on left anterior padilla and there is moderate surrounding erythema with warmth suspicious for cellulitis. 12:30 p.m. Chest x-ray has been read as mild bronchitis, mild interstitial abnormalities with possible pulmonary edema. Vital signs remained stable. Dr. Tan will evaluate the leg wounds. 2:00 p.m. Patient has had extensive evaluation by case management RNs, Floresita and Diane. This is in conjunction with the patient's daughter at bedside. There is increasing concern for her lack of care, failure to thrive and worsening dementia. At this point she is also not able to ambulate out of the bed without assistance. Recommendation from case management is admission for sniff placement. She does meet inpatient criteria for cellulitis of the left lower extremity. 2:10 p.m. Case discussed with hospitalist Dr. Onofre. She will admit the patient to her service. She is in agreement with venous Doppler imaging. I have ordered this. She is admitted in stable condition. No evidence of sepsis. No evidence of encephalopathy. She does appear to be a baseline dementia. Case management , patient's daughter, and patient are all in agreement with this plan. 2:50 p.m. Contacted by radiologist Dr. Diggs. Duplex is negative for evidence of DVT. SUPERVISION: Patient was independently examined, but I discussed the case with my secondary supervising physician Dr. Tan ([facility]) - Diagnostics Imaging Results: Imaging Impressions Chest X-Ray 06/15/17 11:07 Impression: Mild interstitial prominence bilaterally, which could represent subtle pulmonary edema. Mild bronchitis. Stable cardiomegaly. - Objective Vital Signs: Initial Vital Signs Temperature (C) 98.2 F 06/15/17 09:29 Heart Rate 71 06/15/17 09:29 Respiratory Rate 18 06/15/17 09:29 Blood Pressure 149/68 H 06/15/17 09:29 O2 Sat (%) 95 06/15/17 09:29 O2 Delivery Mode Room Air Allergies/Adverse Reactions: No Known Allergies Allergy (Verified 06/06/17 15:34) Home Medications: Medication Instructions Recorded Levothyroxine [Synthroid 50 mcg 50 mcg PO DAILY06 10/23/09 (*)] Aspirin [Aspirin 81mg (*)] 81 mg PO DAILY 11/12/16 Cholecalciferol Vit D3 [Vitamin D3 2,000 units PO DAILY 11/12/16 2000 units tab (OTC)] Donepezil HCl [Aricept] 11.5 mg PO HS 11/12/16 Laboratory Results: Laboratory Results 06/15/17 09:25 06/15/17 09:25 06/15/17 06/15/17 06/15/17 11:50 10:45 09:30 WBC RBC Hgb Hct MCV MCH MCHC RDW Plt Count MPV Neut % (Auto) Lymph % (Auto) [place] % (Auto) Eos % (Auto) Baso % (Auto) Nucleat RBC Rel Count Absolute Neuts (auto) Absolute Lymphs (auto) Absolute Monos (auto) Absolute Eos (auto) Absolute Basos (auto) Absolute Nucleated RBC Immature Gran % Immature Gran # Sodium Potassium Chloride Carbon Dioxide Anion Gap BUN Creatinine Estimated GFR Glucose Calcium Creatine Kinase 86 IU/L IU/L (0-156) TSH 0.980 uIU/mL uIU/mL (0.465-4.680) Urine Color YELLOW Urine Appearance CLEAR Urine pH 7.0 (5.0-7.5) Ur Specific Courtenay 1.012 (1.002-1.030) Urine Protein NEGATIVE (NEGATIVE) Urine Ketones NEGATIVE (NEGATIVE) Urine Blood 1+ H (NEGATIVE) Urine Nitrate NEGATIVE (NEGATIVE) Urine Bilirubin NEGATIVE (NEGATIVE) Urine Urobilinogen NEGATIVE EU EU (0.2-1.0) Ur Leukocyte Esterase NEGATIVE (NEGATIVE) Urine RBC 3-5 /hpf H /hpf (0-3) Urine WBC 1-3 /hpf /hpf (0-3) Ur Epithelial Cells TRACE /lpf /lpf (NONE-1+) Urine Mucus TRACE /lpf /lpf (NONE-1+) Urine Glucose NEGATIVE (NEGATIVE) Nasal Influenza A PCR NEGATIVE FOR FLU A (NEGATIVE) Nasal Influenza B PCR NEGATIVE FOR FLU B (NEGATIVE) 06/15/17 06/15/17 09:25 09:25 WBC 10.03 10^3/uL H 10^3/uL (3.80-9.50) RBC 3.58 10^6/uL L 10^6/uL (4.18-5.33) Hgb 12.4 g/dL L g/dL (12.6-16.3) Hct 36.9 % L % (38.0-47.0) MCV 103.1 fL H fL (81.5-99.8) MCH 34.6 pg H pg (27.9-34.1) MCHC 33.6 g/dL g/dL (32.4-36.7) RDW 14.6 % % (11.5-15.2) Plt Count 248 10^3/uL 10^3/uL (150-400) MPV 10.9 fL fL (8.7-11.7) Neut % (Auto) 72.0 % % (39.3-74.2) Lymph % (Auto) 16.7 % % (15.0-45.0) Agu[place] % (Auto) 8.8 % % (4.5-13.0) Eos % (Auto) 1.1 % % (0.6-7.6) Baso % (Auto) 0.6 % % (0.3-1.7) Nucleat RBC Rel Count 0.0 % % (0.0-0.2) Absolute Neuts (auto) 7.22 10^3/uL H 10^3/uL (1.70-6.50) Absolute Lymphs (auto) 1.68 10^3/uL 10^3/uL (1.00-3.00) Absolute Monos (auto) 0.88 10^3/uL H 10^3/uL (0.30-0.80) Absolute Eos (auto) 0.11 10^3/uL 10^3/uL (0.03-0.40) Absolute Basos (auto) 0.06 10^3/uL 10^3/uL (0.02-0.10) Absolute Nucleated RBC 0.00 10^3/uL 10^3/uL (0-0.01) Immature Gran % 0.8 % % (0.0-1.1) Immature Gran # 0.08 10^3/uL 10^3/uL (0.00-0.10) Sodium 142 mEq/L mEq/L (135-145) Potassium 4.4 mEq/L mEq/L (3.5-5.2) Chloride 104 mEq/L mEq/L (97-110) Carbon Dioxide 27 mEq/l mEq/l (22-31) Anion Gap 11 mEq/L mEq/L (8-16) BUN 19 mg/dL mg/dL (7-23) Creatinine 0.7 mg/dL mg/dL (0.6-1.0) Estimated GFR > 60 Glucose 94 mg/dL mg/dL (70-100) Calcium 9.1 mg/dL mg/dL (8.5-10.4) Creatine Kinase TSH Urine Color Urine Appearance Urine pH Ur Specific Courtenay Urine Protein Urine Ketones Urine Blood Urine Nitrate Urine Bilirubin Urine Urobilinogen Ur Leukocyte Esterase Urine RBC Urine WBC Ur Epithelial Cells Urine Mucus Urine Glucose Nasal Influenza A PCR Nasal Influenza B PCR Medications Given: Discontinued Medications Ceftriaxone Sodium/Dextrose (Rocephin 1 Gm (Premix)) 50 mls @ 100 mls/hr IV EDNOW ONE PRN Reason: Protocol Stop: 06/15/17 14:30 Last Admin: 06/15/17 14:58 Dose: 50 mls Departure - Departure Disposition: [facility] Acute Clinical Impression: Cellulitis of left lower extremity without foot, Weakness, Failure to thrive in adult Condition: Good
--- NOTE | 2017-06-15 11:46 | CPEKG ---
Heart Rate: 67 RR Interval: 896 P-R Interval: 128 QRSD Interval: 90 QT Interval: 420 QTC Interval: 444 P Placida: 79 QRS Placida: 69 T Wave Placida: 55 EKG Severity - NORMAL ECG - EKG Impression: SINUS RHYTHM Electronically Signed By: Tata Tan 15-Jun-2017 15:18:00
[2017-06-15] MEDS ORDERED: cefTRIAXone 1 GM/DEXTROSE 1 GM/50 ML BAG IV ONE ×2 (14:55→14:56)
[2017-06-15] MEDS ORDERED: ACETAMINOPHEN 325 MG TAB PO PRN (15:38)
[2017-06-15] MEDS ORDERED: IBUPROFEN 600 MG TAB PO PRN (15:38)
[2017-06-15] MEDS ORDERED: traMADol 50 MG TAB PO PRN (15:38)
[2017-06-15] MEDS ORDERED: ONDANSETRON 4 MG/2 ML VIAL IVP PRN (15:38)
--- NOTE | 2017-06-15 16:02 | GHP ---
[f rep st] HISTORY AND PHYSICAL DATE OF ADMISSION: 06/15/2017 CHIEF COMPLAINT: Falls. HISTORY: The patient is an 82-year-old female, who fell 2 weeks ago striking her left padilla on her wa lker causing a skin tear. She lives in independent living at the [facility]. This has been a [facility] living situation for her and her bandage has not been changed for 4 days. She continues to fall. She has worsening confusion, worsening weakness. On presentation her left skin tear on the padilla has worsening erythema extending extensively beyond the original skin tear with erythema and warmth cons istent with cellulitis. The patient continues to be confused and is a poor historian. PAST MEDICAL HISTORY: 1. Dementia. 2. Hypothyroidism. PAST SURGICAL HISTORY: Hysterectomy, appendectomy, bilateral total hip replacement. MEDICATIONS: Please see computer record full detailed list. ALLERGIES: No known drug allergies. SOCIAL HISTORY: No smoking. No alcohol. She lives in independent living at the [facility]. REVIEW OF SYSTEMS: Complete review of systems obtained. Review of systems negative for constitution al, HEENT, GI, pulmonary, cardiovascular, , hematology, skin, musculoskeletal, endocrine, psych. F or positives as in HPI. FAMILY HISTORY: Reviewed, noncontributory to presenting complaint. PHYSICAL EXAMINATION: GENERAL: Well-developed, well-nourished female, in no acute distress. VITAL SIGNS: Temperature is 36.9, pulse 78, blood pressure 132/76, saturating 95% on room air. EYES: Nor mal conjunctivae. Pupils react to light. ENT: Normal ears, nose. Hearing intact. Normal teeth. Oropharynx moist. NECK: Trachea midline. No thyromegaly. CHEST: Normal respiratory effort. LUNG S: Clear to auscultation bilaterally. CARDIOVASCULAR: Regular rhythm. No murmur. No extremity ed sonia. ABDOMEN: Soft, nontender. No hepatosplenomegaly. SKIN: Left lower extremity has a skin tear with a black eschar and surrounding erythema. Some possible related fluctuance. No purulent draina ge. It does not extend into the knee or ankle joint. MUSCULOSKELETAL: No cyanosis or clubbing. St rengt 5/5 upper and lower extremities. NEUROLOGIC: Cranial nerves intact. Normal sensation to lig ht touch. PSYCH: The patient is pleasantly confused. Frequently attempts to reorient herself, but is clear she is not quite sure what is going on. Poor memory, poor judgment and insight. Cooperativ e. Follows commands. LABORATORY DATA: White count 10.03, hematocrit 36.9, platelets 248. Sodium 142, potassium 4.4, chlo ride 104, bicarb 24, BUN 19, creatinine 0.7, glucose 94, TSH is 0.9. Urinalysis is negative. Influe nza negative. Chest x-ray is negative. Ultrasound is negative for DVT left lower extremity. EKG vi ewed by me. My personal interpretation is normal sinus rhythm. No ST-T wave changes. ASSESSMENT/PLAN: 1. Left lower extremity cellulitis secondary to a skin tear. Will continue IV antibiotics, but narr ow to IV Ancef. Will consult billing rep. 2. Metabolic encephalopathy. I suspect this is worsened by her infection. 3. Dementia. There is also some question of progression of her underlying dementia and perhaps need s a higher level of care on a more permanent basis. We will continue her Aricept. 4. Hypothyroidism. We will check a TSH. CODE STATUS: Full. ADMISSION STATUS: 1. Will admit to inpatient. Expect greater than 2 midnights required for stabilization. 2. DVT prophylaxis. She is high risk. Will place her on subcutaneous Lovenox. /[id number]/MODL
--- NOTE | 2017-06-15 16:08 | ASMTCMCOM ---
CM Note CM Note Notes: 06/15/2017 Case Management Note Met w/pt and daughter Lashell ([phone]) to discuss frequent admissions. Pt currently lives at [facility]. Pt has home health care from [facility] RN and PT. Pt is unsatisified with quality of home care services. Notified Elidia at [facility] of hospital admission. Lashell reports that pt is missing meals because dressing is taking too long. Pt reports disliking meals offered by [facility] Pt no longer utilizing personal care services from [facility] due to costs. Pt has poor insight into abilities with ADL's. Lashell is planning to check on AL facilities in addition to checking out costs of increasing services at [facility]. Lashell stated that a stay in SNF rehab is likely required at this hospital d/c. Discussed need for palliative care conference during hospital admission. Sister Chela lives in [facility] and can be reached by phone at [phone] for palliative care conference. Case Management d/c poc: TBD anticipating SNF rehab pending evaluations during hospital stay. Case Management to follow. Date Signed: 06/15/2017 04:07 PM Electronically Signed By:Linda Dorantes RN
[2017-06-15] MEDS: DONEPEZIL HCL 5 MG TAB PO SCH (21:38)
[2017-06-16] MEDS: LEVOTHYROXINE 50 MCG TAB PO SCH (05:55)
[2017-06-16 06:03] LABS: PLATELET COUNT 206 10^3/uL (150-400)
[2017-06-16] MEDS: CHOLECALCIFEROL VIT D3 2,000 UNITS TAB/CAP PO SCH (10:41)
[2017-06-16] MEDS: ENOXAPARIN 40 MG/0.4 ML SYR SC SCH (10:41)
[2017-06-16] MEDS: ASPIRIN 81 MG CHEWABLE TAB PO SCH (10:41)
--- NOTE | 2017-06-16 10:45 | PDMN ---
Medical Necessity Medical necessity: Pt meets IP criteria per MD; est los >2 mn for eval/tx of LLE cellulitis secondary to skin tear, metabolic encephalopathy worsened by infection & generalized weakness; admit for further workup/stabilization, IV abx , Wound Care consult & therapies; hx dementia & frequent falls; per H&P & order 06/15/17
--- NOTE | 2017-06-16 11:43 | WOCRNPDOC ---
WOCRN Advanced Assessment Note - Skin Integrity Problem, Advanced Assess Left Lower Leg Dressing Type: Mepilex Transfer, Tegaderm Film Dressing Description: Intact Exudate Amount: Scant Exudate Color: Reddish/Yellow Exudate Characteristic(s): Serosanguinous Integumentary Issue Intervention: Dressing Changed, Silver Gel Applied Debbie Wound Tissue: Erythema, Thin, Dry Debbie Wound Swelling: Mild Wound Bed Color: Brown, Red, Goldsmith Wound Bed Constitution: Red/Palatine - Non Granular Tissue, Scab Site Odor: None Site Measurement - Head-to-Toe Length X Width X Depth (cm): Medial: 7cmx2.8cmx0.2cm. Lateral: 2.3cmx1.5cmx0.1cm Skin Integrity Problem Comment: Two, discrete skin tears noted on anterior aspect of patient's L lower leg. Medial tear has been sutured at the distal aspect, and the skin flap has been approximated across most of the wound. There is a thin rim of smooth, non-granulating tissue at the proximal aspect not covered by the skin flap. Just proximal to the sutured area, there is a 0.2cm divot in the wound bed. The lateral skin tear has been fully approximated. Of concern is the color of the reapproximated skin flaps, both of which are goldsmith. It is too soon to tell whether or not these will readhere to the underlying wound bed sucessfully. Both wounds re-dressed using skin tear policy. Silvasorb wound gel applied to confer some antimicrobial properties. Report given to ash kier boiler Jaimi.
--- NOTE | 2017-06-16 15:43 | HOSPPROG ---
Hospitalist Progress Note Assessment/Plan: * LE cellulitis - superinfection of skin tear -IV ancef -wound care * Metabolic encephalopathy - improved * Dementia - needs higher level of care * Hypothyroidism -TSH okay Subjective: No complaints. Objective: Vital Signs Temp Pulse Resp BP Pulse Ox 36.6 C 79 16 116/44 L 95 06/16/17 15:23 06/16/17 15:23 06/16/17 15:23 06/16/17 15:23 06/16/17 15:23 Laboratory Results 06/16/17 04:23 06/16/17 04:23 06/15/17 06/16/17 06/17/17 05:59 05:59 05:59 Intake Total 650 70 Output Total 200 Balance 450 70 - Physical Exam Constitutional: no apparent distress, appears nourished, not in pain Cardiovascular: regular rate and rhythym, no murmur, rub, or gallop Respiratory: no respiratory distress, no rales or rhonchi, clear to auscultation Gastrointestinal: normoactive bowel sounds, soft, non-tender abdomen, no palpable masses Skin: warm, erythema, fluctuance, rash, No mottled Neurologic: AAOx3, sensation intact bilaterally Psychiatric: interacting appropriately, not anxious, not encephalopathic, thought process linear ICD10 Worksheet Patient Problems: Problems Problem Status Onset Cellulitis of left lower extremity without foot Acute Failure to thrive in adult Acute Weakness Acute Altered mental status Acute Urinary tract infection Acute
--- NOTE | 2017-06-16 15:43 | PDPCPN ---
Palliative Care Progress Note Assessment/Plan: Referring provider: Humphrey Kendall Reason for consult: Complex medical decision making Symptom control HPI: Lupe Hughes is a 82 yo with PMH dementia and hypothyroidism admitted to the hospital after a fall 2 weeks ago with resulting skin tear and now cellulitis of the left lower leg. Started on IV antibiotics. This is her 3rd ED trip this year and has had multiple falls. Palliative care consulted for complex medical decision making. Met with Lupe and her daughters Lashell and Lupe via phone this afternoon. Lupe moved from [place] about 1 year ago and has been living at the [facility]. She lives in independent living and normally is pretty independent with her ADLs. Per her daughter she has been having increasing falls in the past and especially over the past 6 months. The falls seems to occur at random but do occur when she is getting up in the morning or up from a chair/bed after a nap. She often will forget to eat or drink which per family seems to contribute to her overall general poor feeling. She is able to take her medications, reheat food, dress herself, and shower. She uses a walker at home but is unsteady on her feet. She enjoys being social with her family and at the [facility]. She used to garden a lot but now spends a lot of time reading. Discussed her goals and end of life wishes. She would want medical treatment for simple things but if "my brain was not there then what's the point". Meaning she would not want to prolong life if she could not interact in a meaningful way. Discussed having increased care at her independent apartment with someone coming to check in on her 3 times per day to help with meal/drink reminders and more stand by assistance in the morning. Assessment: Physical: - Pain: mild pain of left padilla - tylenol PRN - weakness/falls - PT/OT - fall precautions Emotional/psychological: has a lot of support from family Advanced Care Planning: Is patient decisional?: Yes Code Status: DNR/DNI- MOST form filled out MD TESFAYE: daughter Lupe is MDPOA Plan: Rehab when medically stable, then back home with increased support. Subjective: I'm feeling better Objective: Social History: . Has 3 children, 1 local 2 out of state. Was born in [place] but was mostly raised in [place]. Enjoys reading and spending time with family. Medication list reviewed ROS: General: fatigue, weakness ENT: negative Resp: negative GI: negative : negative MS: negative Skin: skin tear Neuro: negative Psych: some memory loss Functional assessment: PPS: 70% Functional status: independent with most ADLs, IADLs Vital Signs Temp Pulse Resp BP Pulse Ox 36.6 C 79 16 116/44 L 95 06/16/17 15:23 06/16/17 15:23 06/16/17 15:23 06/16/17 15:23 06/16/17 15:23 Laboratory Results 06/16/17 04:23 06/16/17 04:23 06/15/17 06/16/17 06/17/17 05:59 05:59 05:59 Intake Total 650 70 Output Total 200 Balance 450 70 Physical Exam - Physical Exam General Appearance: alert, no apparent distress Respiratory: No respiratory distress, No accessory muscle use Skin: normal color, warm/dry Extremities: No pedal edema Neuro/Psych: alert, oriented x 3 ICD10 Worksheet Patient Problems: Problems Problem Status Onset Cellulitis of left lower extremity without foot Acute Failure to thrive in adult Acute Palliative care encounter Acute Weakness Acute Altered mental status Acute Urinary tract infection Acute - ICD10 Problem Qualifiers (1) Palliative care encounter
--- NOTE | 2017-06-16 17:56 | ASMTCMCOM ---
CM Note CM Note Notes: Spoke with Henrry s/p family conference. Family is hoping patient can be placed in SNF perhaps short term then return to the independent living with more support or perhaps assisted living. Attempted to reach daughter to discuss specifics and I left CM number for her to call to discuss POC. CM to follow, Date Signed: 06/16/2017 05:55 PM Electronically Signed By:Sherrie Miles RN
[2017-06-16] MEDS: DONEPEZIL HCL 5 MG TAB PO SCH (21:15)
[2017-06-17] MEDS: LEVOTHYROXINE 50 MCG TAB PO SCH (06:09)
[2017-06-17] MEDS: ENOXAPARIN 40 MG/0.4 ML SYR SC SCH (09:08)
[2017-06-17] MEDS: CHOLECALCIFEROL VIT D3 2,000 UNITS TAB/CAP PO SCH (09:08)
[2017-06-17] MEDS: ASPIRIN 81 MG CHEWABLE TAB PO SCH (09:08)
--- NOTE | 2017-06-17 15:17 | HOSPPROG ---
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 Objective: Vital Signs Temp Pulse Resp BP Pulse Ox 36.6 C 69 18 97/42 L 97 06/17/17 08:00 06/17/17 08:00 06/17/17 08:00 06/17/17 08:00 06/17/17 08:00 Laboratory Results 06/16/17 04:23 06/16/17 04:23 06/16/17 06/17/17 06/18/17 05:59 05:59 05:59 Intake Total 650 370 Output Total 200 200 Balance 450 170 - Physical Exam Constitutional: no apparent distress, appears nourished, not in pain Cardiovascular: regular rate and rhythym, no murmur, rub, or gallop Respiratory: no respiratory distress, no rales or rhonchi, clear to auscultation Gastrointestinal: normoactive bowel sounds, soft, non-tender abdomen, no palpable masses Skin: no rashes or abrasions, no fluctuance, no induration Neurologic: No weakness Psychiatric: interacting appropriately, poor memory, No encephalopathic, No depressed, No agitated ICD10 Worksheet Patient Problems: Problems Problem Status Onset Cellulitis of left lower extremity without foot Acute Failure to thrive in adult Acute Palliative care encounter Acute Weakness Acute Altered mental status Acute Urinary tract infection Acute
[2017-06-17] MEDS: DONEPEZIL HCL 5 MG TAB PO SCH (20:23)
[2017-06-18] MEDS: LEVOTHYROXINE 50 MCG TAB PO SCH (06:19)
[2017-06-18 07:58] VITALS: RESP 18
[2017-06-18] MEDS: ASPIRIN 81 MG CHEWABLE TAB PO SCH (09:53)
[2017-06-18] MEDS: CHOLECALCIFEROL VIT D3 2,000 UNITS TAB/CAP PO SCH (09:55)
[2017-06-18] MEDS: ENOXAPARIN 40 MG/0.4 ML SYR SC SCH (09:56)
--- NOTE | 2017-06-18 11:05 | PDIAF ---
- Diagnosis Diagnosis: LE cellulitis of previous skin tear Code Status: Do Not Resuscitate - Medication Management Discharge Medications: Medications to Continue on Transfer Levothyroxine [Synthroid 50 mcg (*)] 50 mcg PO DAILY06 10/23/09 [Last Taken ] Aspirin [Aspirin 81mg (*)] 81 mg PO DAILY 11/12/16 [Last Taken 06/15/17] Cholecalciferol Vit D3 [Vitamin D3 2000 units tab (OTC)] 2,000 units PO DAILY [Last Taken 06/15/17] Donepezil HCl [Aricept] 11.5 mg PO HS 11/12/16 [Last Taken 06/14/17] Cephalexin [Keflex (*)] 500 mg PO TID #10 cap 06/18/17 [Last Taken Unknown] Dock Grader Antibiotic Stop Date: 06/22/17 Discharge Medications: Refer to the Discharge Home Medication list for PRN reason. - Orders Services needed: Physical Therapy, Occupational Therapy Diet Recommendation: no restrictions on diet Wound Care Instructions: Dressing change order for L lower leg: please change every 3 days and as needed. 1) clean w/ normal saline and gauze. 2) apply wound gel. 3) cover w/ Adaptic Touch non-adherent gauze. 4) cover w/ non- bordered foam, such as Mepilex. 5) secure w/ Kerlix and stretch net. - Follow Up Care Current Providers and Referrals: Laney Abdullahi MD [Primary Care Provider] - As per Instructions
[2017-06-18 12:27] VITALS: BP 139/97; PULSE 65; TEMP 98.2; O2SAT 92
--- NOTE | 2017-06-18 15:17 | ASDISCHSUM ---
Discharge Information Plan Status:SNF Medically Cleared to Leave: Discharge Date:06/18/2017 03:11 PM D/C Disposition:Halfway Facility ADT D/C Disposition:Halfway Facility Projected Discharge Date:06/18/2017 11:00 AM Transportation at D/C:Wheelchair Van Discharge Delay Reason: Follow-Up Date:06/18/2017 11:00 AM Discharge Slot: Final Diagnosis: Placement Information Referral Type:*[facility]NF Referral ID:[id number] Provider Name:[facility] Address 1:[address] Address 2: City:[place] Selection Factors: State:[place] Patient Contact Information Contact Name:KWASI Relationship:Daughter Address:[address] Work Phone: [facility]:[place] Alternate Phone: State/Zip Code:[place] [address] Email: Financial Information Financial Class: Primary Plan Desc:MEDICARE INPATIENT Primary Plan Number:[id number] Secondary Plan Desc:[employer] Secondary Plan Number:[id number] Assessment Information [facility] CM Progress Note CM Note CM Note Notes: 06/15/2017 Case Management Note Met w/pt and daughter Lashell ([phone]) to discuss frequent admissions. Pt currently lives at [facility]. Pt has home health care from [facility] RN and PT. Pt is unsatisified with quality of home care services. Notified Elidia at [facility] of hospital admission. Lashell reports that pt is missing meals because dressing is taking too long. Pt reports disliking meals offered by [facility] Pt no longer utilizing personal care services from [facility] due to costs. Pt has poor insight into abilities with ADL's. Lashell is planning to check on AL facilities in addition to checking out costs of increasing services at [facility]. Lashell stated that a stay in SNF rehab is likely required at this [facility] d/c. Discussed need for palliative care conference during hospital admission. Sister Chela lives in [facility] and can be reached by phone at [phone] for palliative care conference. Case Management d/c poc: TBD anticipating SNF rehab pending evaluations during hospital stay. Case Management to follow. Date Signed: 06/15/2017 04:07 PM Electronically Signed By:Linda Dorantes RN [facility] CM Progress Note CM Note CM Note Notes: Spoke with Henrry s/p family conference. Family is hoping patient can be placed in SNF perhaps short term then return to the independent living with more support or perhaps assisted living. Attempted to reach daughter to discuss specifics and I left CM number for her to call to discuss POC. CM to follow, Date Signed: 06/16/2017 05:55 PM Electronically Signed By:Sherrie Miles RN Intervention Information Intervention Type:*IM-Signed Date of Service:06/18/2017 11:55 AM Patient Type:Inpatient Staff Member:Sarai Worrell Hours: Discipline: Severity: Comment:
--- NOTE | 2017-06-18 23:49 | GDS ---
[f rep st] DISCHARGE SUMMARY DISCHARGE DIAGNOSES: 1. Lower extremity cellulitis. 2. Skin tear of the lower extremity with subsequent superinfection. 3. Metabolic encephalopathy. 4. Dementia. 5. Hypothyroidism. HISTORY: The patient is an 82-year-old female, who fell, sustaining a skin tear, [facility] and [facility]. She had a couple of repeat ER visits as there was concern the surr ounding skin was getting infected. Eventually, she was having worsening confusion, was admitted to [facility]. She was started on IV Ancef. Wound care was instituted. Sutures removed at day 10. S he can continue with oral Keflex at discharge to continue a course of therapy. Her metabolic encepha lopathy resolved, and she returned to her baseline demented state. She is transferring to [facility] for wound care and rehabilitation. DISCHARGE MEDICATIONS: Please see computerized record for full detailed list. New medications: Kef ana 500 mg p.o. t.i.d. ADDITIONAL DISCHARGE INSTRUCTIONS: 1. Discontinue Keflex June 22, 2017. 2. Dressing change to the left lower leg every 3 days. Please refer to interagency form for details . Greater than 30 minutes' time was spent arranging this discharge. Patient was seen and examined by iram smith on the day of discharge. /[id number]/MODL
== END 2017-06-18 15:11 | DRG 602 ==
LOC: EDUNIT# → F3E 15:49
PROVIDERS: ADMIT Hospitalist; ATTEND Hospitalist
DX: L03.116 Cellulitis of left lower limb (principal); G93.41 Metabolic encephalopathy; S81.812S Laceration without foreign body, left lower leg, sequela; F03.90 Unspecified dementia, unspecified severity, without behavioral disturbance, psychotic disturbance, mood disturbance, and anxiety; E03.9 Hypothyroidism, unspecified
CPT/HCPCS: 96374; 97116-GP; 97162-GP; 97165-GO; G8978-GP-CK; G8979-GP-CI; G8980-GP-CJ; G8987-GO-CJ; G8988-GO-CI; J0690; J0696; J1650

== ENCOUNTER 2017-09-14 07:52 | Emergency (ER) | payer OTHER ==
--- NOTE | 2017-09-14 08:39 | EDPHY ---
H & P Time Seen by Provider: 09/14/17 08:18 HPI/ROS: Chief complaint. Scalp laceration HPI. Patient is a 82-year-old female here by EMS after hitting her head on a door knob. Apparently the patient's sat down in a chair and the seat cushion had been removed. So she sat down a little farther and more hard the normally. She struck her right side of her head on a doorknob. Did not lose consciousness. No other complaints. No neck pain. On aspirin only otherwise no blood thinners. Injury occurred this morning. ROS Constitutional. no fever/chills, no weakness Eyes. no problems with vision ENT. no sore throat, no nasal drainage Cardiovascular. no chest pain Respiratory. no shortness of breath, no cough Abdominal. no abdominal pain, no nausea/vomiting, no diarrhea . no problems urinating MS. no calf pain/swelling, no neck/back pain, no joint pain Skin. Scalp laceration Lymph. no swollen glands Neuro. no headache, no dizziness, no difficulty walking or with speech Past Medical/Surgical History: Dementia, hypothyroid Social History: , nonsmoker, no alcohol Smoking Status: Never smoked Physical Exam: General Appearance: Alert pleasant well-developed female mild distress vital signs are stable Eyes: Pupils equal and round no pallor or injection. ENT, Mouth: Mucous membranes are moist. Respiratory: There are no retractions, lungs are clear to auscultation. Cardiovascular: Regular rate and rhythm. Gastrointestinal: Abdomen is soft and nontender, no masses, bowel sounds normal. Neurological: Awake and alert, sensory and motor exams grossly normal. Skin: 4 cm laceration to right parietal scalp Musculoskeletal: Neck is supple nontender. Extremities symmetrical, full range of motion. Psychiatric: Patient is oriented X 3, there is no agitation. Constitutional: Initial Vital Signs Temperature (C) 36.7 C 09/14/17 07:57 Heart Rate 63 09/14/17 07:57 Respiratory Rate 16 09/14/17 07:57 Blood Pressure 144/63 H 09/14/17 07:57 O2 Sat (%) 94 09/14/17 07:57 O2 Delivery Mode Room Air Allergies/Adverse Reactions: No Known Allergies Allergy (Verified 06/06/17 15:34) Home Medications: Medication Instructions Recorded Levothyroxine [Synthroid 50 mcg 50 mcg PO DAILY06 10/23/09 (*)] Aspirin [Aspirin 81mg (*)] 81 mg PO DAILY 11/12/16 Cholecalciferol Vit D3 [Vitamin D3 2,000 units PO DAILY 11/12/16 2000 units tab (OTC)] Donepezil HCl [Aricept] 11.5 mg PO HS 11/12/16 Cephalexin [Keflex (*)] 500 mg PO TID #10 cap 06/18/17 Medical Decision Making Procedures: Procedure: Laceration repair. Verbal consent was obtained from the patient. The 4 cm laceration on the scalp was anesthetized in the usual fashion. The wound was irrigated, draped and explored to its base with a gloved finger. There were no deep structures involved. No tendon injury was identified. The wound was repaired with seven 3 -0 sutures. The wound repair was simple. The procedure was performed by myself. ED Course/Re-evaluation: On re-evaluation patient remained stable. Patient and I discussed treatment plan including criteria for return and importance of follow-up and further evaluation. She expresses understanding and agreement Differential Diagnosis: I considered retained foreign body, skull fracture, intracranial bleeding Departure - Departure Disposition: Home, Routine, Self-Care Clinical Impression: Laceration of scalp Qualifiers: Encounter type: initial encounter Qualified Code(s): S01.01XA - Laceration without foreign body of scalp, initial encounter Condition: Good Instructions: Care For Your Stitches (ED) Additional Instructions: You may shower and wash your hair with stitches in. Return for signs of infection, worsening headache. Stitches out 1 week Referrals: Laney Abdullahi MD [Primary Care Provider] - 5-7 days, call for appt.
[2017-09-14 10:16] VITALS: BP 144/83
--- NOTE | 2017-09-14 10:51 | ASDISCHSUM ---
Discharge Information Plan Status:Assisted Living Medically Cleared to Leave: Discharge Date:09/14/2017 10:14 AM CM D/C Disposition:Assisted Living ADT D/C Disposition:Home, Routine, Self-Care Projected Discharge Date:09/14/2017 10:14 AM Transportation at D/C:Wheelchair Van Discharge Delay Reason: Follow-Up Date:09/14/2017 10:14 AM Discharge Slot: Final Diagnosis: Placement Information Patient Contact Information Contact Name:KWASI Relationship:Daughter Address:[address] Work Phone: City:[place] Alternate Phone: [facility]/Zip Code:[place] [address] Email: Financial Information Financial Class:Medicare Primary Plan Desc:MEDICARE OUTPATIENT Primary Plan Number:[id number] Secondary Plan Desc:[employer] Secondary Plan Number:[id number] Assessment Information Intervention Information Intervention Type:Transportation Date of Service:09/14/2017 10:48 AM Patient Type:Emergency Room Staff Member:JOBY Carballo Sharon Hours:0.25 Discipline:Sas Bi Developer Severity: Comment:Called [facility] and spoke jamie/ Nancy who arranged to have their facility's dr er pick pt up and transport her home. Intervention Type:Post Acute Communication Date of Service:09/14/2017 10:48 AM Patient Type:Emergency Room Staff Member:JOBY Carballo Sharon Hours:0.25 Discipline:Sas Bi Developer Severity: Comment:Called [facility] Personal ed Living milieu coordinator, Jonna and left a voicemail in an effort to communicate/coordinate pt's follow up needs.
--- NOTE | 2017-09-14 16:39 | ASMTCMCOM ---
CM Note CM Note Notes: Pt presented to the ED via EMS for a head laceration she sustained after hitting her head on a doorknob; the pt reportedly fell while trying to sit in a chair. Pt lives at [facility] and receives assistance through their Personalized Care Services. Pt was medically cleared and discharged home. Spoke jamie/ Nancy at [place] and she arranged for their facility's road train driver to pick pt up from the ED. Spoke with the Personalized Care technology coordinator, Jonna, ([phone], [phone]) to see what services the patient is currently receiving and she states the patient is usually very independent and was receiving more assistance up until a couple of weeks ago. Jonna was concerned about pt's recent confusion and also mentioned that pt had a fall on 09/11/17 but declined to be transported to the ED at that time. Spoke with pt's daughter Lashell ([phone]) and she said she had just assisted the pt with getting back into her apartment. Lashell is aware pt will need to have the stitches taken out in 7 days. We discussed pt needing to follow up with her PCP Dr Hernandez re:stitches, chronic UTI and incontinence issues. We also discussed pt's past ED visits and admission in Jun 2016 and her still ongoing need for increased assistance and/or Assisted Living. Lashell says she plans on having further discussions with her sister and [facility]. CM available for further assistance if needed. Date Signed: 09/14/2017 04:39 PM Electronically Signed By:Diane Carballo RN
== END 2017-09-14 10:14 | disposition home or self-care (01) ==
LOC: EDUNIT#
PROC: 0HQ0XZZ Repair Scalp Skin, External Approach (ICD-10-PCS; principal; 2017-09-14)
DX: S01.01XA Laceration without foreign body of scalp, initial encounter (principal); Z79.82 Long term (current) use of aspirin; W22.03XA Walked into furniture, initial encounter; Y99.8 Other external cause status; Y93.89 Activity, other specified

== ENCOUNTER 2017-09-15 15:44 | Inpatient (IN) | payer OTHER ==
--- NOTE | 2017-09-15 15:59 | CPEKG ---
Heart Rate: 68 RR Interval: 882 P-R Interval: 128 QRSD Interval: 90 QT Interval: 420 QTC Interval: 447 P [place]: 76 QRS [place]: 63 T Wave [place]: 20 EKG Severity - NORMAL ECG - EKG Impression: SINUS RHYTHM Electronically Signed By: Augusto Barakat 15-Sep-2017 20:53:27
--- NOTE | 2017-09-15 16:19 | EDPHY ---
H & P Stated Complaint: mechanical fall Time Seen by Provider: 09/15/17 15:59 HPI/ROS: CHIEF COMPLAINT: Fall HISTORY OF PRESENT ILLNESS: Patient is an 82-year-old female with history of dementia who fell trying to reach something on a high shelf. This is her 3rd fall this week. She was here few days ago and receives stitches in her scalp for another fall and the day before that she fell and hit her head but did not come to the ER. According to paramedics she has a history of mild dementia and urinary tract infections. Her family was concerned about a urinary tract infection last week even though the urinalysis was inconclusive she was started on antibiotics although we do not know which ones. REVIEW OF SYSTEMS: Constitutional: denies: chills, fever, recent illness, recent injury EENTM: denies: blurred vision, double vision, nose congestion Respiratory: denies: cough, shortness of breath Cardiac: denies: chest pain, irregular heart rate, lightheadedness, palpitations Gastrointestinal/Abdominal: denies: abdominal pain, diarrhea, nausea, vomiting, blood streaked stools Genitourinary: denies: dysuria, frequency, hematuria, pain Musculoskeletal: denies: joint pain, muscle pain Skin: denies: lesions, rash, jaundice, bruising Neurological: denies: headache, numbness, paresthesia, tingling, dizziness, weakness Hematologic/Lymphatic: denies: blood clots, easy bleeding, easy bruising Immunologic/allergic: denies: HIV/AIDS, transplant EXAM: GENERAL: Well-appearing, well-nourished and in no acute distress. HEAD: Laceration repaired, Atraumatic, normocephalic. EYES: Pupils equal round and reactive to light, extraocular movements intact, sclera anicteric, conjunctiva are normal. ENT: TMs normal, nares patent, oropharynx clear without exudates. Moist mucous membranes. NECK: Normal range of motion, supple without lymphadenopathy or JVD. LUNGS: Breath sounds clear to auscultation bilaterally and equal. No wheezes rales or rhonchi. HEART: Regular rate and rhythm without murmurs, rubs or gallops. ABDOMEN: Soft, nontender, normoactive bowel sounds. No guarding, no rebound. No masses appreciated. BACK: No CVA tenderness, no spinal tenderness, step-offs or deformities EXTREMITIES: Normal range of motion, no pitting or edema. No clubbing or cyanosis. NEUROLOGICAL: Cranial nerves II through XII grossly intact. Normal speech, normal gait. 5/5 strength, normal movement in all extremities, normal sensation PSYCH: Normal mood, normal affect. SKIN: Warm, dry, normal turgor, no visible rashes or lesions. Source: Patient Exam Limitations: No limitations - Personal History Tetanus Vaccine Date: < 10 years - Medical/Surgical History Hx Asthma: No Hx Chronic Respiratory Disease: No Hx Diabetes: No Hx Cardiac Disease: No Hx Renal Disease: No Hx Cirrhosis: No Hx Alcoholism: No Hx HIV/AIDS: No Hx Splenectomy or Spleen Trauma: No Other PMH: hypothyroid, dementia - Social History Smoking Status: Never smoked Constitutional: Initial Vital Signs Temperature (C) 37.0 C 09/15/17 15:46 Heart Rate 72 09/15/17 15:46 Respiratory Rate 18 09/15/17 15:46 Blood Pressure 127/59 H 09/15/17 15:46 O2 Sat (%) 98 09/15/17 15:46 O2 Delivery Mode Room Air Allergies/Adverse Reactions: No Known Allergies Allergy (Verified 06/06/17 15:34) Home Medications: Medication Instructions Recorded Levothyroxine [Synthroid 50 mcg 50 mcg PO DAILY06 10/23/09 (*)] Aspirin [Aspirin 81mg (*)] 81 mg PO DAILY 11/12/16 Cholecalciferol Vit D3 [Vitamin D3 2,000 units PO DAILY 11/12/16 2000 units tab (OTC)] Donepezil HCl [Aricept] 11.5 mg PO HS 11/12/16 Cephalexin [Keflex (*)] 500 mg PO TID #10 cap 06/18/17 Medical Decision Making - Diagnostics Imaging Results: Imaging Impressions Head CT 09/15/17 16:15 Impression: 1. No subdural hematoma or acute intracranial hemorrhage. 2. 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 Findings discussed with Emergency Department physician, Ravindra Saleh M.D., on September 15, 2017 at 1702. ED Course/Re-evaluation: 6:00 p.m. I spoke with the daughter at length. She states that this is typical of her mom's pattern where she a has hallucinations and falls when she has urinary tract infection. She has improved over the last few days but still felt today. Her urinalysis is still dirty. I will start her on ceftriaxone. She had been on Keflex. Will admit her. Will have to discuss level of care at discharge. Spoke with Dr. Carey Burch who agrees. Differential Diagnosis: Partial list of the Differential diagnosis considered include but were not limited to; dementia, altered mental status, urinary tract infection, fall and although unlikely based on the history and physical exam, I also considered intracranial hemorrhage, fracture, electrolyte abnormality. - Data Points Laboratory Results: Laboratory Results 09/15/17 16:15 09/15/17 16:15 09/15/1718 09/15/17 17:10 16:15 16:15 WBC RBC Hgb Hct MCV MCH MCHC RDW Plt Count MPV Neut % (Auto) Lymph % (Auto) Chaves % (Auto) Eos % (Auto) Baso % (Auto) Nucleat RBC Rel Count Absolute Neuts (auto) Absolute Lymphs (auto) Absolute Monos (auto) Absolute Eos (auto) Absolute Basos (auto) Absolute Nucleated RBC Immature Gran % Immature Gran # PT 12.9 SEC SEC (12.0-15.0) INR 0.95 (0.83-1.16) APTT 27.1 SEC SEC (23.0-38.0) Sodium 140 mEq/L mEq/L (135-145) Potassium 4.5 mEq/L mEq/L (3.5-5.2) Chloride 105 mEq/L mEq/L (97-110) Carbon Dioxide 26 mEq/l mEq/l (22-31) Anion Gap 9 mEq/L mEq/L (8-16) BUN 21 mg/dL mg/dL (7-23) Creatinine 0.7 mg/dL mg/dL (0.6-1.0) Estimated GFR > 60 Glucose 84 mg/dL mg/dL (70-100) Calcium 9.2 mg/dL mg/dL (8.5-10.4) Urine Color PALE YELLOW Urine Appearance MODERATELY TURBID Urine pH 7.0 (5.0-7.5) Ur Specific [place] 1.005 (1.002-1.030) Urine Protein NEGATIVE (NEGATIVE) Urine Ketones NEGATIVE (NEGATIVE) Urine Blood 1+ H (NEGATIVE) Urine Nitrate NEGATIVE (NEGATIVE) Urine Bilirubin NEGATIVE (NEGATIVE) Urine Urobilinogen NEGATIVE EU EU (0.2-1.0) Ur Leukocyte Esterase 3+ H (NEGATIVE) Urine RBC 5-10 /hpf H /hpf (0-3) Urine WBC 50-182 /hpf H /hpf (0-3) Ur Epithelial Cells NONE SEEN /lpf /lpf (NONE-1+) Urine Bacteria 1+ /hpf H /hpf (NONE SEEN) Urine Mucus TRACE /lpf /lpf (NONE-1+) Urine Glucose NEGATIVE (NEGATIVE) 09/15/17 16:15 WBC 8.08 10^3/uL 10^3/uL (3.80-9.50) RBC 3.70 10^6/uL L 10^6/uL (4.18-5.33) Hgb 12.5 g/dL L g/dL (12.6-16.3) Hct 39.1 % % (38.0-47.0) MCV 105.7 fL H fL (81.5-99.8) MCH 33.8 pg pg (27.9-34.1) MCHC 32.0 g/dL L g/dL (32.4-36.7) RDW 14.5 % % (11.5-15.2) Plt Count 182 10^3/uL 10^3/uL (150-400) MPV 11.1 fL fL (8.7-11.7) Neut % (Auto) 64.1 % % (39.3-74.2) Lymph % (Auto) 20.8 % % (15.0-45.0) Chaves % (Auto) 9.8 % % (4.5-13.0) Eos % (Auto) 3.8 % % (0.6-7.6) Baso % (Auto) 0.9 % % (0.3-1.7) Nucleat RBC Rel Count 0.0 % % (0.0-0.2) Absolute Neuts (auto) 5.18 10^3/uL 10^3/uL (1.70-6.50) Absolute Lymphs (auto) 1.68 10^3/uL 10^3/uL (1.00-3.00) Absolute Monos (auto) 0.79 10^3/uL 10^3/uL (0.30-0.80) Absolute Eos (auto) 0.31 10^3/uL 10^3/uL (0.03-0.40) Absolute Basos (auto) 0.07 10^3/uL 10^3/uL (0.02-0.10) Absolute Nucleated RBC 0.00 10^3/uL 10^3/uL (0-0.01) Immature Gran % 0.6 % % (0.0-1.1) Immature Gran # 0.05 10^3/uL 10^3/uL (0.00-0.10) PT INR APTT Sodium Potassium Chloride Carbon Dioxide Anion Gap BUN Creatinine Estimated GFR Glucose Calcium Urine Color Urine Appearance Urine pH Ur Specific [place] Urine Protein Urine Ketones Urine Blood Urine Nitrate Urine Bilirubin Urine Urobilinogen Ur Leukocyte Esterase Urine RBC Urine WBC Ur Epithelial Cells Urine Bacteria Urine Mucus Urine Glucose Medications Given: Discontinued Medications Ceftriaxone Sodium/Dextrose (Rocephin 1 Gm (Premix)) 50 mls @ 100 mls/hr IV EDNOW ONE PRN Reason: Protocol Stop: 09/15/17 18:28 Last Admin: 09/15/17 18:10 Dose: 50 mls Departure - Departure Disposition: [facility] Inpatient Acute Clinical Impression: Urinary tract infection Qualifiers: Urinary tract infection type: acute cystitis Hematuria presence: without hematuria Qualified Code(s): N30.00 - Acute cystitis without hematuria Altered mental status Qualifiers: Altered mental status type: unspecified Qualified Code(s): R41.82 - Altered mental status, unspecified Condition: Fair
[2017-09-15 16:24] LABS: PLATELET COUNT 182 10^3/uL (150-400)
[2017-09-15 16:36] LABS: INR 0.95 (0.83-1.16); PROTIME(PATIENT) 12.9 SEC (12.0-15.0)
[2017-09-15] MEDS ORDERED: ACETAMINOPHEN 325 MG TAB PO PRN (20:39)
[2017-09-15] MEDS ORDERED: ONDANSETRON 4 MG/2 ML VIAL IVP PRN (20:39)
--- NOTE | 2017-09-15 21:43 | GHP ---
[f rep st] HISTORY AND PHYSICAL DATE OF ADMISSION: 09/15/2017 CHIEF COMPLAINT: Falls. HISTORY OF PRESENT ILLNESS: The patient is an 82-year-old female, who was recently diagnosed with a urinary tract infection as an outpatient. She lives in independent living and has mild dementia, but cannot remember to take her Keflex regularly. She has fallen 3 times this week. She has had a coup le of previous ER visits; one of them to suture a scalp laceration. She denies ever having any dysu rik. Reportedly the urine culture from outpatient will be available tomorrow. PAST MEDICAL HISTORY: 1. Dementia. 2. Hypothyroidism. 3. Chronic urinary incontinence. PAST SURGICAL HISTORY: Hysterectomy, appendectomy, and bilateral total hip replacement. MEDICATIONS: Please see computer record for a full detailed list. ALLERGIES: No known drug allergies. SOCIAL HISTORY: No smoking. No alcohol. She lives in independent living at [place]. REVIEW OF SYSTEMS: Complete review of systems obtained. Review of systems is negative regarding con stitutional, HEENT, GI, pulmonary, cardiovascular, , hematology, skin, musculoskeletal, endocrine, psychiatric except for positives and negatives as in HPI. FAMILY HISTORY: Reviewed and noncontributory to the presenting complaint. PHYSICAL EXAMINATION: GENERAL: Well-developed, well-nourished female in no acute distress. VITAL S IGNS: Temperature is 36.5, pulse 67, blood pressure 140/68, saturating 97% on room air. EYES: Norm al conjunctivae. Pupils reactive to light. ENT: Normal ears and nose. Hearing intact. Normal leo th. Oropharynx is moist. NECK: Trachea is midline. No thyromegaly. CHEST: Normal effort. LUNGS : Clear to auscultation bilaterally. CARDIOVASCULAR: Regular rhythm. No murmur. No extremity jeaneth ma. ABDOMEN: Soft, nontender. No hepatosplenomegaly. SKIN: Warm, dry, intact. No rash. MUSCULO SKELETAL: No cyanosis or clubbing. Strength 5/5 upper and lower extremities. NEUROLOGIC: Cranial nerves intact. Normal sensation to light touch. PSYCHIATRIC: Alert and oriented x3. Normal affect . Normal judgment. Normal memory. LABORATORY DATA: White count 8.08, hematocrit 39.1, platelets 182. Sodium 140, potassium 4.5, chlor ren 105, bicarb 26, BUN 21, creatinine 0.7, glucose 84. INR 0.95. EKG viewed by de. My personal interpretation is normal sinus rhythm. No ST-T wave changes. Urinalysis shows 15-182 white blood cells, 3+ leukocyte esterase. Head CT shows negative for bleed. Question NPH. No change since October of 2015. ASSESSMENT AND PLAN: 1. Urinary tract infection. She never really had any symptoms; however, according to the family thi s acute onset weakness is typical for many previous urinary tract infections she has had in the past. Review of her last urine culture here on file showed that it had developed some resistance to Kefle x that may have been the wrong agent anyway. We will place her on intravenous ceftriaxone and try to obtain outpatient urine culture tomorrow. We will get PT/OT to evaluate her regarding her recent fa lls and home safety. 2. Possible normal-pressure hydrocephalus. I think this is unlikely. She does have chronic urinary incontinence for the last 3 years. We can observe her gait with physical therapy in the morning. 3. Dementia. I think this is mild, based on my history with her today. We will continue Aricept. 4. Scalp laceration. Sutures will be removed per emergency department instructions. CODE STATUS: DNR. ADMISSION STATUS: Will admit to observation. Reevaluate tomorrow by ongoing hospitalization. DVT PROPHYLAXIS: She is high risk. Will place on her on subcutaneously Lovenox. /[id number]/MODL
[2017-09-16] MEDS: ENOXAPARIN 40 MG/0.4 ML SYR SC SCH (08:29)
--- NOTE | 2017-09-16 10:58 | HOSPPROG ---
Hospitalist Progress Note Assessment/Plan: DIAGNOSES: -recurrent falls with chronic gait instability and history of previous falls, scalp lacerations -question of possible normal pressure hydrocephalus with CT scan changes, chronic gait instability and urinary incontinence as well as dementia * Have reviewed her outpatient and inpatient records, and there has been no previous diagnosis or neurologic consultation regarding possible NPH -pyuria, question UTI * Apparently was recently diagnosed with UTI and treated with outpatient antibiotics though the details are sketchy, there apparently was a culture done recently but I am unable to find out from the patient the exact name of the practitioner she saw, no evidence of visits or labs in our system * Currently receiving empiric Rocephin, patient does not have any fevers or signs of complication -hypothyroidism on treatment -macrocytic anemia, chronic with normal B12 level The patient lives alone in apartment, independent living. She at this point does not seem safe for that setting from either a cognitive or a gait instability standpoint. Will need to have discharge planning involved to be certain she has an appropriate disposition, will get family involved as well PLANS: -will continue the make efforts to see if there is a urine culture that has been done anywhere recently, story around that is uncertain -continue empiric Rocephin at the moment and attempting to get outpt result from recent urine cx -fall risk precautions -physical occupational therapy -neurology consultation for possible normal pressure hydrocephalus 2 visits with patient by me today, and I also visited the patient during interdisciplinary rounds SUBJECTIVE: Feels well today, no pain, no fever symptoms, no respiratory symptoms, no urinary symptoms Eating well OBJECTIVE Vitals reviewed: Stable without fever Sample Box Maker, my review: Sinus Exam: alert oriented skin warm dry color ok resps not labored lungs clear BSs heart regular abd soft nondistended nontender, bowel sounds present limbs warm, no edema iv site ok Objective: Vital Signs Temp Pulse Resp BP Pulse Ox 36.7 C 54 L 14 120/53 L 96 09/16/17 08:49 09/16/17 08:49 09/16/17 08:49 09/16/17 08:49 09/16/17 08:49 09/15/17 09/16/17 09/17/17 06:59 06:59 06:59 Intake Total 240 Balance 240 PT 12.9 SEC (12.0-15.0) 09/15/17 16:15 INR 0.95 (0.83-1.16) 09/15/17 16:15 - Time Spent With Patient Time Spent with Patient: greater than 35 minutes Time Spent with Patient: Greater than 35 minutes spent on this patients care, greater than 50% of time spent counseling, educating, and coordinating care regarding the above mentioned plan. ICD10 Worksheet Patient Problems: Problems Problem Status Onset Altered mental status Acute Urinary tract infection Acute Cellulitis of left lower extremity without foot Acute Failure to thrive in adult Acute Palliative care encounter Acute Weakness Acute
--- NOTE | 2017-09-16 16:00 | ASMTCMCOM ---
CM Note CM Note Notes: 09/16/2017 Case Management Note Met w/pt and Henrry from Palliative. Please see Palliative Note Discussed with pt concerns regarding safety in independent living situation. Pt had periods of confusion during conversation. Discussed pt memory and living situation with daughter Lashell. Pt is unsafe to return to an independent living situation d/t memory and frequent falls. Lashell to contact her sister in [facility] to discuss if pt stays in [place] or returns to the [facility] to live in an assisted living. Lashell is unable to increase services at the [facility] in a helpful way for pt safety. Discussed possibility of a memory care unit placement and Lashell wanted to defer that conversation for the time being. Pt has been to [facility] in the past and Lashell is not willing to have pt return to [facility]. Lashell requested referrals to [facility], [facility] and [facility]. Lashell to chose facility, case management to call with accepting facilities. Lashell agrees with need for outpatient palliative. After discussion, Lashell chose [facility]. Referrals made via allscripts. Case Management d/c poc: to SNF rehab with palliative to follow. Family is arranging for d/c from SNF to assisted living or memory care. Family to discuss if pt will live in [place] or return to the [facility]. Case Management to follow. Date Signed: 09/16/2017 03:59 PM Electronically Signed By:Linda Dorantes RN
[2017-09-16] MEDS: ASPIRIN 81 MG CHEWABLE TAB PO SCH (18:56)
[2017-09-16] MEDS ORDERED: DONEPEZIL PO SCH (21:00)
[2017-09-17] MEDS: LEVOTHYROXINE 50 MCG TAB PO SCH (05:57)
[2017-09-17] MEDS: ENOXAPARIN 40 MG/0.4 ML SYR SC SCH (08:32)
[2017-09-17] MEDS: CHOLECALCIFEROL VIT D3 2,000 UNITS TAB/CAP PO SCH (08:32)
--- NOTE | 2017-09-17 16:07 | GCON ---
[f rep st] CONSULTATION NEUROLOGY CONSULT REFERRING PHYSICIAN: Dr. Corona CHIEF COMPLAINT: Dementia. HISTORY OF PRESENT ILLNESS: The patient is a very pleasant 82-year-old lady with a longstanding history of dementia made by a physician 4 years ago in [place]. I obtained history from the patient and her daughter via phone call. The patient moved here more recently to [place] and has an outpatient primary care physician, lives in [place]. She has had a longstanding gait disorder with an elderly gait and intermittent falls. She has fallen 3 times this week and comes in due to a mechanical fall. She does have decreased balance with urinary tract infections in the past. In the course of evaluation, a head CT was done which shows some age-appropriate atrophy with ex vacuo dilation of the ventricles and microvascular changes. She has had some stress incontinence over the last year and spontaneous incontinence as well. She is on Aricept as an outpatient. For past medical history, social history, family history, allergies, home medications see Dr. Burch's H and P. PHYSICAL EXAM: VITAL SIGNS: 115/49, temperature 36.8, heart rate 67. GENERAL : The patient is awake and alert. No acute distress. MENTAL STATUS: There was some inconsistencies in the history she provided me, consistent with mild-to -moderate dementia. Formal mental status testing was not completed. She could name 5/5, repeat 5/5 and follow commands. CRANIAL NERVES: 2 through 7 normal. MOTOR: There was no focal weakness. REFLEXES: Present and symmetric throughout. SENSATION: Light touch is normal throughout. COORDINATION: [id number] was symmetric. No myoclonus on exam. IMPRESSION AND PLAN: 1. Cognitive disorder, not otherwise specified. I counseled the patient and had a long discussion with her daughter via phone call. Certainly, the head CT without contrast could be consistent with normal- pressure hydrocephalus. However, the ventricular size is not highly impressive and could also be consistent with a degree of dilation consistent with cerebral atrophy. I did offer to refer the patient to a movement disorder colleague for further evaluation and described the process in detail. This would involve a baseline examination followed by a diagnostic high-volume lumbar puncture to see if there is any improvement in gait. If this were the case, the next step would be a ventriculoperitoneal shunt for definitive treatment for possible normal-pressure hydrocephalus. After going through the description of the diagnosis and final treatment, the patient and her daughter were not interested in pursuing this pathway now as they would not be interested in aggressive intervention such as a ventriculoperitoneal shunt. This is reasonable, based on the above. Certainly, if they change their mind, I would recommend consultation as an outpatient with Dr. Delgado in the [place] area for further evaluation. In the interim, I recommend continuing Aricept indefinitely. If they need further titration of medications for memory, I would be certainly happy to follow her as an outpatient, if they wish. I have offered that to the patient and her daughter as well. No further recommendations now. We will continue to follow this very pleasant patient as needed. Please do not hesitate to call if there are any questions or changes in neurologic status with this patient. Thank you for the consultation. Seventy total minutes on floor time today reviewing previous inpatient records, outpatient records, head CT findings, direct counseling with the patient and her daughter. /[id number]/MODL MTDD
--- NOTE | 2017-09-17 16:50 | ASMTCMCOM ---
CM Note CM Note Notes: Pts case discussed in morning rounds. Anticipate d/c for Thursday. CM met w/ daughter for dispo planning. Daughter has chosen [facility]. CM notified [facility] of this. CM notified the other facilities that pt has gone with another facility. Tisha from [facility] stopped by to do an eval for palliative. CM to follow. [facility] Date Signed: 09/17/2017 04:49 PM Electronically Signed By:STEFANIE White
[2017-09-17] MEDS: ASPIRIN 81 MG CHEWABLE TAB PO SCH (16:58)
--- NOTE | 2017-09-17 18:10 | HOSPPROG ---
Hospitalist Progress Note Assessment/Plan: Assessment: 82-year-old female presents with acute on chronic encephalopathy, acute on chronic recurrent falls secondary to acute, recurrent urinary tract infection Plan: 1. Acute on chronic recurrent falls. Patient experienced mechanical fall prior to presentation, rendering her at high risk for worsening morbidity and/or mortality if she were to sustain a fracture -counseled the patient and her daughter that palliative care may be of some benefit regardless of the patient's next care setting, to help with care conversations regarding the most appropriate level of care for this patient moving forward -the patient remains somewhat unsteady in his on a bed alarm -continue working with physical and occupational therapy, currently plan to go to fdc facility for rehab after this hospital stay -remains a very high fall risk if discharged prematurely to lower level of care that is not a fdc facility 2. Acute on chronic encephalopathy. Evidenced by global brain dysfunction characterized as confusion, disorientation, visual hallucinations, reduced awareness, all of which are acute changes from her baseline, most likely secondary to the toxic effects of urinary tract infection -counseled patient and her daughter regarding the possible relationship between mental status changes and underlying infections -patient's daughter has witnessed mental status changes of similar character in the past, which have been attributed to urinary tract infections, and her daughter reports that symptoms resolve after treatment with antibiotics -consequently, will continue with antibiotic treatment for urinary tract infection -patient's mental status is improving, but is not currently at baseline 3. Acute, recurrent urinary tract infection. Evidenced by positive urinalysis in gram-negative rods and urine culture as well as mental status changes as outlined above, resulting in recurrent weakness and falls -day 3 IV antibiotics, continue to monitor urine culture for speciation and sensitivity -anticipate a total 7 days of antibiotics, will continue Diet. Regular Prophylaxis. High risk patient Lovenox 40 Code. Do not resuscitate Disposition. Anticipated discharge uncertain this time, anticipated length stay is greater than 48 hr warranting inpatient admission status for reasonable medical necessity including acute on chronic encephalopathy with recurrent falls , acute recurrent urinary tract infection, rendering the patient high risk for worsening morbidity and/or mortality if discharged at this time. Subjective: Patient reports she is no longer hallucinating about cats, denies any urinary symptoms Objective: Vital Signs Temp Pulse Resp BP Pulse Ox 36.6 C 76 16 132/52 H 93 09/17/17 16:00 09/17/17 16:00 09/17/17 16:00 09/17/17 16:00 09/17/17 16:00 09/16/17 09/17/17 09/18/17 05:59 05:59 05:59 Intake Total 120 550 720 Balance 120 550 720 PT 12.9 SEC (12.0-15.0) 09/15/17 16:15 INR 0.95 (0.83-1.16) 09/15/17 16:15 - Time Spent With Patient Time Spent with Patient: greater than 35 minutes Time Spent with Patient: Greater than 35 minutes spent on this patients care, greater than 50% of time spent counseling, educating, and coordinating care regarding the above mentioned plan. - Physical Exam Constitutional: no apparent distress, appears nourished, not in pain, No uncomfortable, No unkempt Psychiatric: interacting appropriately, not anxious, thought process linear, poor memory, other (Tangential but redirectable), No agitated ICD10 Worksheet Patient Problems: Problems Problem Status Onset Urinary tract infection Acute Altered mental status Acute Cellulitis of left lower extremity without foot Acute Weakness Acute Failure to thrive in adult Acute Palliative care encounter Acute
--- NOTE | 2017-09-17 18:29 | PDMN ---
Medical Necessity Medical necessity: Change to IP, as of 09/17/17, per MD; los >2 mn for ongoing management of acute on chronic encephalopathy w/recurrent falls & UTIs rendering pt high risk for worsening morbidity &/or mortality if discharged home at this time; admit for further monitoring, IV abx, therapies & CM consult for dc planning; hx dementia, chronic urinary incontinence; per progress note & order 09/17/17
[2017-09-17] MEDS: DONEPEZIL HCL 5 MG TAB PO SCH (20:52)
[2017-09-18] MEDS: LEVOTHYROXINE 50 MCG TAB PO SCH (06:13)
[2017-09-18] MEDS: CHOLECALCIFEROL VIT D3 2,000 UNITS TAB/CAP PO SCH (08:34)
[2017-09-18] MEDS: ENOXAPARIN 40 MG/0.4 ML SYR SC SCH (08:35)
--- NOTE | 2017-09-18 15:28 | ASMTCMCOM ---
CM Note CM Note Notes: Pts case discussed in morning rounds. [facility] does not have a bed available for pt on Thursday. AVNI communicated this w/ Lashell. Lashell would still like [facility] to be their number 1 choice if for whatever reason they have any admission cancellations. Lashell is OK w/ admission to [facility]. Lashell reports that she has been in contact w/ folks at the [facility]. Lashell plans on transitioning pt to a smaller apartment with more services after SNF. AVNI communicated this w/ [facility]. AVNI spoke w/ Tisha at [facility]. Pt will be enrolled w/ palliative while at SNF. CM to follow. Plan: [facility]/ [facility] Date Signed: 09/18/2017 03:27 PM Electronically Signed By:STEFANIE White
[2017-09-18] MEDS: ASPIRIN 81 MG CHEWABLE TAB PO SCH (15:59)
[2017-09-18] MEDS: MELATONIN 3 MG TAB PO SCH (20:10)
[2017-09-18] MEDS: DONEPEZIL HCL 5 MG TAB PO SCH (20:10)
--- NOTE | 2017-09-18 22:13 | HOSPPROG ---
Hospitalist Progress Note Assessment/Plan: Assessment: 82-year-old female presents with acute on chronic encephalopathy, acute on chronic recurrent falls secondary to acute, recurrent urinary tract infection Plan: 1. Acute on chronic recurrent falls. Patient experienced mechanical fall prior to presentation, rendering her at high risk for worsening morbidity and/or mortality if she were to sustain a fracture, and she experiences frailty -palliative care enrolled to assist at patient's next care setting, to help with care conversations regarding the most appropriate level of care for this patient moving forward -the patient remains somewhat unsteady in his on a bed alarm -continue working with physical and occupational therapy, currently plan to go to long term facility for rehab after this hospital stay -remains a very high fall risk if discharged prematurely to lower level of care that is not a long term facility 2. Acute on chronic encephalopathy. Evidenced by global brain dysfunction characterized as confusion, disorientation, visual hallucinations, reduced awareness, all of which are acute changes from her baseline, most likely secondary to the toxic effects of urinary tract infection -counseled patient today regarding need for additional assistance, and she is in agreement -patient interacted very coherently today, fully oriented, able to concentrate, bilingual, able to provide detailed account of her childhood -appreciate neuro consult, d/w Dr. Grant, he recommends patient follow-up with him as outpt, and, since patient would not elect to pursue [employer] D[employer] HELPER shunt, that high volume LP/eval is not indicated 3. Acute, recurrent urinary tract infection. POA, 2/2 resistant enterobacter, evidenced by positive urinalysis for Enterobacter as well as mental status changes as outlined above, resulting in recurrent weakness and falls -day 4 IV antibiotics (CTX), patient w/ intermediate sensitivity -adjust to doxy 100 bid, for additional 7 days given the recurrent nature Diet. Regular Prophylaxis. High risk patient Lovenox 40 Code. Do not resuscitate Disposition. Anticipated discharge uncertain this time, SNF when medically safe , currently requiring assistance Subjective: patient feels more like herself, unable to recall her hallucinations Objective: Vital Signs Temp Pulse Resp BP Pulse Ox 36.7 C 65 16 102/59 L 97 09/18/17 19:55 09/18/17 19:55 09/18/17 19:55 09/18/17 19:55 09/18/17 19:55 09/17/17 09/18/17 09/19/17 05:59 05:59 05:59 Intake Total 550 820 150 Output Total 2 Balance 550 820 148 PT 12.9 SEC (12.0-15.0) 09/15/17 16:15 INR 0.95 (0.83-1.16) 09/15/17 16:15 - Time Spent With Patient Time Spent with Patient: greater than 35 minutes Time Spent with Patient: Greater than 35 minutes spent on this patients care, greater than 50% of time spent counseling, educating, and coordinating care regarding the above mentioned plan. - Physical Exam Constitutional: no apparent distress, not in pain, uncomfortable Cardiovascular: regular rate and rhythym, no murmur, rub, or gallop Respiratory: no respiratory distress, no rales or rhonchi, clear to auscultation Gastrointestinal: normoactive bowel sounds, soft, non-tender abdomen, no palpable masses Neurologic: AAOx3 Psychiatric: not anxious, thought process linear, poor insight, poor memory, other (concentration 7/7), No agitated ICD10 Worksheet Patient Problems: Problems Problem Status Onset Urinary tract infection Acute Altered mental status Acute Cellulitis of left lower extremity without foot Acute Weakness Acute Failure to thrive in adult Acute Palliative care encounter Acute
[2017-09-19] MEDS: LEVOTHYROXINE 50 MCG TAB PO SCH (06:30)
[2017-09-19] MEDS ORDERED: DOXYCYCLINE HYCLATE 100 MG CAP/TAB PO SCH (09:00)
[2017-09-19] MEDS: ENOXAPARIN 40 MG/0.4 ML SYR SC SCH (09:01)
[2017-09-19] MEDS: CHOLECALCIFEROL VIT D3 2,000 UNITS TAB/CAP PO SCH (09:01)
[2017-09-19] MEDS: SULFAMETHOX/TMP 800/160 MG 1 TAB PO SCH ×2 (09:59→20:04)
--- NOTE | 2017-09-19 11:31 | HOSPPROG ---
Hospitalist Progress Note Assessment/Plan: #Acute on chronic encephalopathy: underlying dementia -due to UTI. Possible NPH on imaging. Evaluated by Neuro and patient and family not interested in LV-LP -FU neuro outpatient #Acute on chronic falls -cont PT/OT. Plan for rehab at [facility] #Enterobacter UTI: was on CTX, but intermediate. Change to Bactrim (Day 1) #Hypothyroidism: LT4 #DVT ppx: Lovenox #Disp: cont inpatient admission for PT/OT, abx Subjective: no dysuria, urinary urgency Objective: Vital Signs Temp Pulse Resp BP Pulse Ox 37.1 C 69 15 106/52 L 95 09/19/17 08:00 09/19/17 08:00 09/19/17 08:00 09/19/17 08:00 09/19/17 08:00 09/18/17 09/19/17 09/20/17 05:59 05:59 05:59 Intake Total 820 450 Output Total 2 Balance 820 448 PT 12.9 SEC (12.0-15.0) 09/15/17 16:15 INR 0.95 (0.83-1.16) 09/15/17 16:15 - Physical Exam Constitutional: no apparent distress Eyes: PERRL Ears, Nose, Mouth, Throat: moist mucous membranes Cardiovascular: regular rate and rhythym Respiratory: no respiratory distress Gastrointestinal: normoactive bowel sounds, soft, non-tender abdomen, No tenderness Genitourinary: No no bladder fullness, No no bladder tenderness, No richey in urethra Skin: warm Musculoskeletal: full muscle strength Neurologic: CN II-XII Intact, other (alert to self, place, year. Not month) Psychiatric: interacting appropriately ICD10 Worksheet Patient Problems: Problems Problem Status Onset Altered mental status Acute Urinary tract infection Acute Cellulitis of left lower extremity without foot Acute Failure to thrive in adult Acute Palliative care encounter Acute Weakness Acute
--- NOTE | 2017-09-19 11:56 | ASMTCMCOM ---
CM Note CM Note Notes: Chart reviewed. Discussed plan of care in rounds. She is on oral antb. Discharge plan is likely to [facility] tomorrow. CM to follow. Date Signed: 09/19/2017 11:55 AM Electronically Signed By:Sherrei Miles RN
[2017-09-19] MEDS: ASPIRIN 81 MG CHEWABLE TAB PO SCH (15:13)
[2017-09-19] MEDS: DONEPEZIL HCL 5 MG TAB PO SCH (20:04)
[2017-09-19] MEDS: MELATONIN 3 MG TAB PO SCH (20:04)
[2017-09-20] MEDS: LEVOTHYROXINE 50 MCG TAB PO SCH (05:16)
[2017-09-20] MEDS: SULFAMETHOX/TMP 800/160 MG 1 TAB PO SCH (09:16)
[2017-09-20] MEDS: CHOLECALCIFEROL VIT D3 2,000 UNITS TAB/CAP PO SCH (09:16)
[2017-09-20] MEDS: ENOXAPARIN 40 MG/0.4 ML SYR SC SCH (09:16)
--- NOTE | 2017-09-20 12:06 | PDIAF ---
- Diagnosis Diagnosis: UTI, encephalopathy Code Status: Do Not Resuscitate - Medication Management Discharge Medications: Medications to Continue on Transfer Levothyroxine [Synthroid 50 mcg (*)] 50 mcg PO DAILY06 10/23/09 [Last Taken 07:00] Aspirin [Aspirin 81mg (*)] 81 mg PO 1600 11/12/16 [Last Taken 06/15/17] Cholecalciferol Vit D3 [Vitamin D3 2000 units tab (OTC)] 2,000 units PO DAILY [Last Taken 06/15/17] Donepezil HCl [Aricept] 11.5 mg PO HS 11/12/16 [Last Taken 09/14/17] Melatonin [Melatonin 3 MG (*)] 3 mg PO HS tab 09/20/17 [Last Taken Unknown] Sennosides/Docusate Sodium [Senna-S Tablet] 1 each PO DAILY #30 tablet 09/20/17 [Last Taken Unknown] Sulfamethox/Tmp 800/160 mg [Bactrim DS] 1 ea PO BID #11 tab 09/20/17 [Last Taken Unknown] Discharge Medications: Refer to the Discharge Home Medication list for PRN reason. - Orders Services needed: Registered Nurse, Certified Medical Lab Director, Physical Therapy Diet Recommendation: no restrictions on diet Diet Texture: Regular Texture Diet - Follow Up Care Current Providers and Referrals: Laney Orozco MD [[facility] Primary Care Provider] - As per Instructions
[2017-09-20 12:30] VITALS: BP 120/49
--- NOTE | 2017-09-20 12:34 | ASMTLACE ---
LACE Length of stay for Answers: 4-6 days current admission Acuity / Level of Answers: Yes Care: Did the patient have an inpatient admission? Comorbidities - select Answers: Dementia all that apply History of falls # of Emergency department Answers: 5-8 visits in the last 6 months Score: 17 Date Signed: 09/20/2017 12:33 PM Electronically Signed By:Sherrie Miles RN
--- NOTE | 2017-09-20 12:38 | ASMTCMCOM ---
CM Note CM Note Notes: Chart reviewed. Discussed in rounds. Patient is medically cleared for discharge to SNF. Spoke with daughter Lashell ([phone]). Final orders via allscripts to [facility]. [facility] completed.[facility] to arrange transportation. CM available should other needs arise. Plan: SNF rehab Date Signed: 09/20/2017 12:37 PM Electronically Signed By:Sherrie Miles RN
--- NOTE | 2017-09-20 13:18 | GDS ---
[f rep st] DISCHARGE SUMMARY DISCHARGE DIAGNOSES: 1. Isquq-gq-hfoceyq encephalopathy. 2. Underlying dementia. 3. Nzrrz-zq-mondofb falls. 4. Enterobacter urinary tract infection. 5. History of recurrent urinary tract infections. 6. Hypothyroidism. HISTORY OF PRESENT ILLNESS: An 82-year-old female with history of the recurrent UTIs, recently diagnosed with one, but was not taking her Keflex as prescribed. She lives independently and has mild dementia. She fell 3 times the week prior to admission. One of the falls led to a scalp laceration that was sutured. She denies ever having dysuria. HOSPITAL COURSE BY PROBLEM: 1. Lthtr-ew-nqjyofm encephalopathy: Underlying dementia, compounded by a UTI. This has improved and she is near her baseline. 2. Enterobacter UTI: She was initially treated with ceftriaxone but this was intermediate, so transitioned her to Bactrim. I will complete a 7-day course given recurrent infection. 3. Scalp laceration: Ethan to be removed prior to discharge. 4. Ussbs-ub-megbyra falls: UTI likely contributed. She was evaluated by PT, OT, and planned for discharge to [facility] today. 5. Hypothyroidism: Levothyroxine. DISPOSITION: Patient is stable for discharge to [facility]. NEW MEDICATIONS: Bactrim Double-Strength for 6 more days. PHYSICAL EXAMINATION: VITAL SIGNS: Today, temperature 36.3, blood pressure 118 /54, heart rate in the 50s, respirations 14, 94% on room air. GENERAL: Well appearing, sitting up in chair smiling. HEENT: PERRLA. EOMI. Oropharynx clear. CV: Regular rate and rhythm. No murmurs, gallops, or rubs. LUNGS: Clear. ABDOMEN: Soft, nontender, nondistended. Positive bowel sounds. : No Burger. MUSCULOSKELETAL: She is moving all 4 extremities. NEUROLOGIC: 2 through 12 intact. /[id number]/MODL MTDD
[2017-09-20] MEDS: ASPIRIN 81 MG CHEWABLE TAB PO SCH (15:07)
--- NOTE | 2017-09-21 16:29 | ASDISCHSUM ---
Discharge Information Plan Status:SNF Medically Cleared to Leave:09/20/2017 Discharge Date:09/20/2017 04:00 PM D/C Disposition:Half-Way Facility ADT D/C Disposition:Home, Routine, Self-Care Projected Discharge Date:09/20/2017 11:00 AM Transportation at D/C:Wheelchair Van Discharge Delay Reason: Follow-Up Date:09/20/2017 11:00 AM Discharge Slot: Final Diagnosis: Placement Information Referral Type:*Long-Term/SNF Referral ID:[id number] Provider Name:Belén [facility] Address 1:[address] Phone Number: Address 2: Fax Number: [facility]:[place] Selection Factors: State:[place] Referral Type:Palliative Care Referral ID:-[id number] Provider Name:[facility] Address 1:[address] Phone Number: Address 2: Fax Number: [facility]:[place] Selection Factors: State:[place] Patient Contact Information Contact Name:KWASI Relationship:Daughter Address:[address] Work Phone: City:[place] [facility] Phone: State/Zip Code:[place] [address] Email: Financial Information Financial Class:Medicare Primary Plan Desc:MEDICARE INPATIENT Primary Plan Number:[id number] Secondary Plan Desc:[employer] AND CASUALTY Secondary Plan Number:[id number] Assessment Information LACE LACE Length of stay for Answers: 4-6 days current admission Acuity / Level of Answers: Yes Care: Did the patient have an inpatient admission? Comorbidities - select Answers: Dementia all that apply History of falls # of Emergency department Answers: 5-8 visits in the last 6 months Score: 17 Date Signed: 09/20/2017 12:33 PM Electronically Signed By:Sherrie Miles RN [facility] Progress Note CM Note AVNI Note Notes: 09/16/2017 Case Management Note Met w/pt and Henrry from Palliative. Please see Palliative Note Discussed with pt concerns regarding safety in independent living situation. Pt had periods of confusion during conversation. Discussed pt memory and living situation with daughter Lashell. Pt is unsafe to return to an independent living situation d/t memory and frequent falls. Lashell to contact her sister in [facility] to discuss if pt stays in [place] or returns to the [facility] to live in an assisted living. Lashell is unable to increase services at the [facility] in a helpful way for pt safety. Discussed possibility of a memory care unit placement and Lashell wanted to defer that conversation for the time being. Pt has been to [facility] in the past and Lashell is not willing to have pt return to [facility]. Lashell requested referrals to [facility], [facility] and [facility]. Lashell to chose facility, case management to call with accepting facilities. Lashell agrees with need for outpatient palliative. After discussion, Lashell chose [facility]. Referrals made via allscriLearnerator. Case Management d/c poc: to SNF rehab with palliative to follow. Family is arranging for d/c from SNF to assisted living or memory care. Family to discuss if pt will live in [place] or return to the [facility]. Case Management to follow. Date Signed: 09/16/2017 03:59 PM Electronically Signed By:Linda Dorantes RN [facility] Progress Note AVNI Note AVNI Note Notes: Pts case discussed in morning rounds. Anticipate d/c for Thursday. AVNI met w/ daughter for dispo planning. Daughter has chosen [facility]. [facility] notified [facility] of this. [facility] notified the other facilities that pt has gone with another facility. Tisha from [facility] stopped by to do an eval for palliative. CM to follow. Plan: [facility] Date Signed: 09/17/2017 04:49 PM Electronically Signed By:STEFANIE White [facility] Progress Note CM Note CM Note Notes: Pts case discussed in morning rounds. [facility] does not have a bed available for pt on Thursday. AVNI communicated this w/ Lashell. Lashell would still like [facility] to be their number 1 choice if for whatever reason they have any admission cancellations. Lashell is OK w/ admission to [facility]. Lashell reports that she has been in contact w/ memo at the [facility]. Lashell plans on transitioning pt to a smaller apartment with more services after SNF. [facility] communicated this w/ [facility]. CM spoke w/ Tisha at [facility]. Pt will be enrolled w/ palliative while at [facility]. CM to follow. Plan: [facility]/ [facility] Date Signed: 09/18/2017 03:27 PM Electronically Signed By:STEFANIE White [facility] Progress Note AVNI Note AVNI Note Notes: Chart reviewed. Discussed plan of care in rounds. She is on oral antb. Discharge plan is likely to [facility] tomorrow. CM to follow. Date Signed: 09/19/2017 11:55 AM Electronically Signed By:Sherrie Miles RN [facility] CM Progress Note CM Note CM Note Notes: Chart reviewed. Discussed in rounds. Patient is medically cleared for discharge to SNF. Spoke with daughter Lashell ([phone]). Final orders via allscriLearnerator to [facility]. [facility] completed.[facility] to arrange transportation. CM available should other needs arise. Plan: SNF rehab Date Signed: 09/20/2017 12:37 PM Electronically Signed By:Sherrie Miles RN Intervention Information Intervention Type:*MACARIO-Signed Date of Service:09/16/2017 10:22 AM Patient Type:Observation Staff Member:Sarai Worrell Hours: Discipline: Severity: Comment: Intervention Type:*IM-Signed Date of Service:09/20/2017 12:51 PM Patient Type:Inpatient Staff Member:JOBY Miles Margaret Hours: Discipline: Severity: Comment:
== END 2017-09-20 16:00 | DRG 689 ==
LOC: EDUNIT# → F2W 19:47 → OBSVTOIN 20:38
PROVIDERS: ADMIT Internal Medicine; ATTEND Internal Medicine
DX: N39.0 Urinary tract infection, site not specified (principal); G93.49 Other encephalopathy; F03.90 Unspecified dementia, unspecified severity, without behavioral disturbance, psychotic disturbance, mood disturbance, and anxiety; B96.89 Other specified bacterial agents as the cause of diseases classified elsewhere; R29.6 Repeated falls; E03.9 Hypothyroidism, unspecified; R32 Unspecified urinary incontinence; S01.01XD Laceration without foreign body of scalp, subsequent encounter; W18.39XA Other fall on same level, initial encounter; Z66 Do not resuscitate; Z87.440 Personal history of urinary (tract) infections
CPT/HCPCS: 96365; 97110-GP; 97116-GP; 97161-GP; 97165-GO; 97530-GP; 97535-GO; G0378; G8978-GP-CI; G8979-GP-CI; G8987-GO-CJ; G8988-GO-CI; G8989-GO-CI; J0696; J1650

== ENCOUNTER 2017-11-05 10:37 | Emergency (ER) | payer OTHER ==
[2017-11-05] MEDS ORDERED: TDAP ADULT 0.5 ML INJ (BOOSTRIX) IM ONE (10:58)
--- NOTE | 2017-11-05 11:02 | EDPHY ---
H & P Smoking Status: Never smoked Time Seen by Provider: 11/05/17 10:45 HPI/ROS: CHIEF COMPLAINT: Laceration left arm HISTORY OF PRESENT ILLNESS: 82-year-old female presents to the emergency department by ambulance with a laceration to her left arm. The patient was at her independent living residence and she states that her laundry room door is not wide enough for her new walker. She was trying to back up using the walker and tripped and fell and cut her medial aspect of her left arm. She did not hit her head or lose consciousness. Denies a headache. Denies neck or back pain. Denies chest pain or difficulty breathing. Denies abdominal pain. Denies injury to her lower extremities or her right upper extremities. She is unsure of her last tetanus shot. She denies any presyncopal symptoms such as feeling dizzy or lightheaded prior to her fall. REVIEW OF SYSTEMS: Constitutional: No fever, no chills. Eyes: No double or blurry vision. ENT: No sore throat. Respiratory: No cough, no shortness of breath. Cardiac: No chest pain. Gastrointestinal: No abdominal pain, vomiting or diarrhea. Genitourinary: No dysuria. Musculoskeletal: No neck or back pain. Skin: Left arm laceration. No rashes. Neurological: No headache. (Savanah Reilly) Past Medical/Surgical History: Hypothyroidism, dementia (Savanah Reilly) Social History: The patient is a and lives at [place]. She is originally from [facility]. (Savanah Reilly) Physical Exam: General Appearance: Alert, no distress. No visible signs of trauma to her head. She is mentating normally and answering questions appropriately. Eyes: Pupils equal and round. Extraocular motions are all intact. ENT: Mouth: Mucous membranes moist. Respiratory: No wheezing, rhonchi, or rales, lungs are clear to auscultation. Cardiovascular: Regular rate and rhythm. Gastrointestinal: Abdomen is soft and nontender, no masses, no rebound or guarding, bowel sounds normal. Neurological: Alert and oriented x 3, cranial nerves II through XII grossly intact Skin: 4 cm gaping laceration to the proximal, medial aspect of her left humerus. Subcutaneous tissue was noted. No evidence of retained foreign body. No palpable bony tenderness or deformity. Full range of motion of her upper and lower extremities bilaterally. Warm and dry, no rashes. Musculoskeletal: Nontender to palpate along the cervical, thoracic or lumbar spine. Neck is supple. Extremities: Full range of motion and no peripheral edema. Left arm laceration as described above. Psychiatric: Patient is oriented X 3, there is no agitation. (Savanah Reilly) Constitutional: Initial Vital Signs Temperature (C) 36.7 C 11/05/17 10:45 Heart Rate 71 11/05/17 10:45 Respiratory Rate 16 11/05/17 10:45 Blood Pressure 145/71 H 11/05/17 10:45 O2 Sat (%) 97 11/05/17 10:45 O2 Delivery Mode Room Air Allergies/Adverse Reactions: No Known Allergies Allergy (Verified 06/06/17 15:34) Home Medications: Medication Instructions Recorded Aricept 11/05/17 Aspirin 81mg (*) 11/05/17 Levothyroxine 11/05/17 Melatonin 11/05/17 Medical Decision Making Procedures: Laceration repair. Verbal consent was obtained from the patient. The 4 cm laceration on the left proximal, medial aspect of arm was anesthetized using 1% lidocaine with epinephrine. The wound was irrigated with saline, draped and explored to its base with a gloved finger. There were no deep structures involved. No tendon injury was identified. The wound was repaired with 5 0 Ethilon, 7 sutures. The wound repair was complex. The procedure was performed by myself. (Savanah Reilly) ED Course/Re-evaluation: 82-year-old female presents to the emergency department with a laceration to her left arm. The wound was repaired, see procedure note. It is not clear with this patient's last tetanus shot was. The nurse did attempt to try calling [facility] and they do not have any of the medical records. She will receive a tetanus shot today in the emergency department. Daughter eyes at bedside at 11:15 a.m.. She will take the patient back to her residence. She was given wound care precautions. (Savanah Reilly) I did not see this patient while she was in the emergency department. However her care was discussed with the PA while the patient was in the department. I agree with treatment plan and management (Augusto Barakat) Differential Diagnosis: Including but not limited to laceration, retained foreign body, fracture, contusion, skin tear (Savanah Reilly) - Data Points Medications Given: Discontinued Medications Diphtheria/Tetanus/Acell Pertussis (Boostrix) 0.5 ml IM .ONCE ONE Stop: 11/05/17 10:59 Last Admin: 11/05/17 11:25 Dose: 0.5 ml Departure - Departure Disposition: Home, Routine, Self-Care Clinical Impression: Laceration of left upper arm Qualifiers: Encounter type: initial encounter Qualified Code(s): S41.112A - Laceration without foreign body of left upper arm, initial encounter Condition: Good Instructions: Care For Your Stitches (ED), Laceration (ED), Acute Wounds (ED) Additional Instructions: Wound Care Follow-Up: Removal of sutures in 10 days. Suture removal is complimentary in uncomplicated cases. Infection or abnormal findings would require reevaluation by the MD. In that case, you may be billed. You were given a tetanus shot today in the emergency department. Please document this for your records. Return to the emergency department sooner if he developed any signs or symptoms of infection such as redness, swelling, increased pain, fever, purulent drainage. Referrals: Patient,NotPresent [Unknown] - As per Instructions
[2017-11-05 11:58] VITALS: BP 134/78
--- NOTE | 2017-11-05 14:10 | ASMTCMCOM ---
CM Note CM Note Notes: Pt presented to the ED from her Independent Living apartment at [facility] after having a mechanical fall resulting in a left arm laceration that required sutures. Pt's daughter, Lashell was here in the ED earlier but had to leave and was unable to assist with transport for a couple of hours. Pt needing safe transportation home; this CM called and spoke w/Bill at the [facility] and he arranged for someone to come pick patient up and they will assist her into her apt w/her walker. Called and updated Lashell on pt returning home via [facility]. Per chart review, pt was recently d/c'd from [facility] 09/20/17 to [facility] and was set up with [facility]. Spoke w/Sarita at [facility] and notified her of pt's ED visit and pt reporting issues with her walker not fitting through a doorway. Sarita says they have not seen pt since the beginning of September, when she was at [facility]. Sarita states they were unaware that pt returned home. We also discussed that there appears to be ongoing concerns for pt's ability to safely stay in Independent Living and/or needing increased services/care. Sarita says she will reach out to patient, Lashell and [facility] staff re:resuming services/care and to further discuss other concerns. CM available for further assistance if needed. Date Signed: 11/05/2017 02:10 PM Electronically Signed By:Diane Carballo RN
--- NOTE | 2017-11-05 14:12 | ASDISCHSUM ---
Discharge Information Plan Status:Home with No Needs Medically Cleared to Leave: Discharge Date:11/05/2017 12:37 PM CM D/C Disposition:Home, Routine, Self-Care ADT D/C Disposition:Home, Routine, Self-Care Projected Discharge Date:11/05/2017 12:37 PM Transportation at D/C:Wheelchair Van Discharge Delay Reason: Follow-Up Date:11/05/2017 12:37 PM Discharge Slot: Final Diagnosis: Placement Information Patient Contact Information Contact Name:KWASI Relationship:Daughter Address:[address] [place] [address] Work Phone: City:[place] Alternate Phone: State/Zip Code:[place] [address] Email: Financial Information Financial Class:Medicare Primary Plan Desc:MEDICARE OUTPATIENT Primary Plan Number:[id number] Secondary Plan Desc:[employer] AND CASUALTY Secondary Plan Number:[id number] Assessment Information [facility] Progress Note CM Note CM Note Notes: Pt presented to the ED from her Independent Living apartment at [facility] after having a mechanical fall resulting in a left arm laceration that required sutures. Pt's daughter, Lashell was here in the ED earlier but had to leave and was unable to assist with transport for a couple of hours. Pt needing safe transportation home; this CM called and spoke w/Shabbir at the [facility] and he arranged for someone to come pick patient up and they will assist her into her apt w/her walker. Called and updated Lashell on pt returning home via [facility]. Per chart review, pt was recently d/c'd from [facility] 09/20/17 to [facility] and was set up with [facility]. Spoke w/Sarita at [facility] and notified her of pt's ED visit and pt reporting issues with her walker not fitting through a doorway. Sarita says they have not seen pt since the beginning of September, when she was at [facility]. Sarita states they were unaware that pt returned home. We also discussed that there appears to be ongoing concerns for pt's ability to safely stay in Independent Living and/or needing increased services/care. Sarita says she will reach out to patient, Lashell and [facility] staff re:resuming services/care and to further discuss other concerns. CM available for further assistance if needed. Date Signed: 11/05/2017 02:10 PM Electronically Signed By:Diane Carballo RN Intervention Information Intervention Type:Post Acute Communication Date of Service:11/05/2017 02:10 PM Patient Type:Emergency Room Staff Member:JOBY Carballo, Diane Hours:0.75 Discipline:Publication Manager Severity: Comment:[facility] and u pdated daughter
== END 2017-11-05 12:37 | disposition home or self-care (01) ==
LOC: EDUNIT#
PROC: 0HQCXZZ Repair Left Upper Arm Skin, External Approach (ICD-10-PCS; principal; 2017-11-05)
DX: S41.112A Laceration without foreign body of left upper arm, initial encounter (principal); Z23 Encounter for immunization; W01.0XXA Fall on same level from slipping, tripping and stumbling without subsequent striking against object, initial encounter; Y92.009 Unspecified place in unspecified non-institutional (private) residence as the place of occurrence of the external cause; Y99.8 Other external cause status; Y93.89 Activity, other specified

== ENCOUNTER 2018-01-23 19:31 | Inpatient (IN) | payer OTHER ==
--- NOTE | 2018-01-23 20:09 | EDPHY ---
H & P Time Seen by Provider: 01/23/18 19:32 HPI/ROS: HPI Fall at assisted living. Dementia. 83-year-old female by ambulance. She has a history of frequent falls at her assisted living residence at [place]. She reports to me that she fell at 8: 00 a.m. This morning while cleaning up her bed room after taking a shower. She is not sure why EMS brought her in 12 hr later. Per report from the assisted living staff she has been falling more regularly. They are concerned that her dementia has advanced and she is either overdosing or under dosing her medications. The assisted living staff feels that she needs a higher level of care. The patient denies headache. She did sustain a skin tear to her left arm. She states that she did not hit her head. She denies headache. No neck pain. No loss of sensation or weakness in her extremities. ROS: Constitutional: No fever, no chills. As above. Eyes: No discharge. No changes in vision. ENT: No sore throat. No nasal congestion or rhinorrhea. Respiratory: No cough. No shortness of breath. Cardiac: No chest pain, no palpitations. Gastrointestinal: No abdominal pain, no vomiting, no diarrhea. Genitourinary: No hematuria. No dysuria or increased frequency with urination. Musculoskeletal: No back pain. No neck pain. No myalgias or arthralgias. Skin: No rashes. As above. Neurological: No headache. No focal weakness or altered sensation. Past medical history: Hypothyroid, dementia, frequent urinary tract infections. Social history: Has a daughter who lives nearby. As above. Nonsmoker. No alcohol. Physical Exam: General Appearance: Alert, pleasant, no distress. This patient will initially respond to questions appropriately but then goes off on a tangent about something unrelated to you're questioning. She is not sure why she was brought to the emergency department tonight. This patient appears well-hydrated and well-nourished. Head: Normocephalic atraumatic. Face: Facial bones are stable on palpation. Eyes: Pupils equal and round and reactive to light, no pallor or injection. No lid erythema or edema. ENT, Mouth: Mucous membranes moist. Dentition is intact. No malocclusion of the jaw. No tongue lacerations or abrasions. Pharynx is clear. The bilateral nasal canals are clear. No septal hematoma. Respiratory: There are no retractions, lungs are clear to auscultation with good air movement bilaterally. Chest wall is stable to AP and lateral palpation. Cardiovascular: Regular rate and rhythm. No murmur. Gastrointestinal: Abdomen is soft and nontender, no masses, bowel sounds normal. Neurological: Motor sensory function is intact. Cranial nerves are normal. Cerebellar function intact. Skin: Warm and dry, no rashes. She has contusion with subtle swelling and diffuse ecchymosis left dorsal ulnar and radial hand and wrist. The left upper extremity is neurovascularly intact. She has 2 skin tears 1 about diameter of a quarter. The other the diameter of a dime left mid lateral arm. Musculoskeletal: Neck is supple and nontender. The trachea is midline. No midline cervical, thoracic, lumbar or sacral tenderness on palpation. No flank tenderness on palpation. Extremities are symmetrical, full range of motion. All joints in the bilateral upper and bilateral lower extremities range without pain or impingement. No tenderness on palpation of the long bones in the bilateral upper and bilateral lower extremities. Psychiatric: No agitation. No depression. Database: EKG: EKG time is 8:04 p.m.; EKG shows a narrow complex normal sinus rhythm with a ventricular rate of 71. PAC noted. The NC, QRS, QT intervals are within normal limits. There are no ST-T wave changes indicative of ischemic or injury pattern. No evidence of right heart strain. Interpreted by me. Imaging: CT head without contrast: Bilateral sinusitis. No evidence of skull fracture or intracranial bleed. Age-related changes. Results were discussed with staff radiologist Dr. James Strickland. Left hand and wrist x-ray series: Significant for a impacted intra-articular distal radius fracture as well as ulnar styloid fracture. Age-related degenerative changes. Interpreted by me. Procedures: Procedure: Splint placement. A ortho glass sugar-tong splint was applied left upper extremity. After application of the splint I returned and re-examined the patient. The splint was adequately immobilizing the joint and distal to the splint the patient's circulation and sensation was intact. Emergency department course: Triage vital signs reviewed. She is moderately hypertensive. Triage vital signs are otherwise normal. An IV was placed. She will be started on IV normal saline at 125 cc/hour while in the emergency department. EKG obtained and reviewed by thomaself. She was placed on a monitoring and evaluation advisor. CT brain to be obtained shortly. 8:50 p.m., discussed case with on-call hospitalist Dr. Sergio Montalvo. He accepts this patient for admission. Orthopedics paged for management of distal radius fracture. The patient was admitted in stable condition to the hospitalist service. Orthopedics, Dr. Vuong, to consult on management of closed distal radius fracture. Differential Diagnosis: The differential diagnosis on this patient includes but is not limited to dementia, requires placement at a higher level of care, urinary tract infection , noncompliance with medications. CVA, arrhythmia, acute coronary syndrome unlikely. This represents a partial list of diagnoses considered. These considerations are based on history, physical exam, past history, reassessment and diagnostic testing. Smoking Status: Never smoked Constitutional: Initial Vital Signs Temperature (C) 36.5 C 01/23/18 19:35 Heart Rate 73 01/23/18 19:35 Respiratory Rate 16 01/23/18 19:35 Blood Pressure 148/62 H 01/23/18 19:35 O2 Sat (%) 98 01/23/18 19:35 O2 Delivery Mode Room Air Allergies/Adverse Reactions: No Known Allergies Allergy (Verified 06/06/17 15:34) Home Medications: Medication Instructions Recorded Aspirin [Aspirin 81mg (*)] 81 mg PO DAILY 01/23/18 Cephalexin [Keflex (*)] 500 mg PO BID 01/23/18 Cyclobenzaprine [Flexeril 10 MG 10 mg PO HS PRN 01/23/18 (*)] Donepezil HCl [Aricept] 11.5 mg PO DAILY 01/23/18 Levothyroxine [Synthroid 50 mcg 50 mcg PO DAILY06 01/23/18 (*)] Meclizine HCl [Meclizine HCl 12.5 12.5 mg PO BID PRN 01/23/18 mg (*)] traMADol [Ultram 50 mg (*)] 25 mg PO Q6H PRN 01/23/18 Medical Decision Making - Data Points Laboratory Results: Laboratory Results 01/23/18 19:48 01/23/18 19:48 Medications Given: Acetaminophen (Tylenol) 1,000 mg PO Q8 DEVENDRA Stop: 07/22/18 21:59 Last Admin: 01/24/18 14:18 Dose: Not Given Aspirin (Aspirin) 81 mg PO DAILY [facility] Stop: 07/23/18 08:59 Last Admin: 01/24/18 09:11 Dose: 81 mg Enoxaparin Sodium (Lovenox) 40 mg SC DAILY [facility] Stop: 07/23/18 08:59 Last Admin: 01/24/18 09:10 Dose: 40 mg Levothyroxine S[facility]throid) [facility] Stop: 07/23/18 05:59 Last Admin: 01/24/18 05:45 Dose: 50 mcg Miscellaneous Medication (Donepezil Hcl [Aricept]) 11.5 mg PO DAILY [facility] Stop: 07/23/18 08:59 Last Admin: 01/24/18 09:10 Dose: 11.5 mg Discontinued Medications Pneumococcal 13-Valent Conj Vacc (Prevnar 13 Syringe) 0.5 ml IM .ONCE ONE Stop: 01/24/18 11:46 Last Admin: 01/24/18 14:22 Dose: 0.5 ml Departure - Departure Disposition: [facility] Inpatient Acute Clinical Impression: Dementia, Closed fracture of right distal radius, Skin tear of left upper extremity, Fall from ground level
[2018-01-23 20:14] LABS: PLATELET COUNT 171 10^3/uL (150-400)
[2018-01-23 20:25] LABS: INR 0.92 (0.83-1.16); PROTIME(PATIENT) 12.6 SEC (12.0-15.0)
--- NOTE | 2018-01-23 21:14 | CPEKG ---
Test Reason : OPEN Blood Pressure : / mmHG Vent. Rate : 071 BPM Atrial Rate : 071 BPM P-R Int : 133 ms QRS Dur : 099 ms QT Int : 430 ms P-R-T Axes : 079 066 037 degrees QTc Int : 468 ms Atrial flutter with predominant 4:1 AV block Confirmed by Cynthia Peterson ([id number]) on 01/23/2018 9:14:18 PM Referred By: Confirmed By:Cynthia Peterson
[2018-01-23] MEDS ORDERED: ONDANSETRON 4 MG/2 ML VIAL IVP PRN (21:53)
[2018-01-23] MEDS ORDERED: ONDANSETRON DISINTEGRATING 4 MG TAB PO PRN (21:53)
--- NOTE | 2018-01-23 23:54 | GHP ---
[f rep st] HISTORY AND PHYSICAL DATE OF ADMISSION: 01/23/2018 HISTORY OF PRESENT ILLNESS: The patient is a pleasant 83-year-old female with history of dementia, f alls, and recurrent UTI. She was recently hospitalized, in August of this year, for a fall. At that time in August, she was also unable to remember to take her Keflex. I reviewed her pill bottles at he r bedside. She had several prescriptions for antibiotics. Today, she presents with a fall. She was making her bed, and she fell landing on her wrist. She sustained a fracture. When I see the patien t, she has no systemic complaints. She denies urgency, frequency, dysuria. No abdominal pain. No f ever, chills, cough, sputum, nausea, vomiting, diarrhea. REVIEW OF SYSTEMS: Complete 10-point review of systems conducted and negative except as noted in the HPI. PAST MEDICAL HISTORY: Dementia, hypothyroidism, chronic urinary incontinence, fall. PAST SURGICAL HISTORY: She had a hysterectomy, appendectomy, bilateral total hip replacement. ALLERGIES: She has no known drug allergies. HOME MEDICATIONS: Cyclobenzaprine, meclizine, tramadol, aspirin, Keflex, donepezil, levothyroxine. SOCIAL HISTORY: She is originally from [facility]. Nonsmoker. Rare alcohol. Lives in local assisted living. It sounds like assisted living is concerned that she does not have enough care to keep her s afe. FAMILY HISTORY: Parents . PHYSICAL EXAM: VITAL SIGNS: Temp 36.5, blood pressure 148/62, pulse 73, breathing 16 times a minute , 98% on room air. GENERAL: No acute distress. HEENT: Sclerae anicteric. Oropharynx clear. Muco us membranes are moist neck. NECK: Supple without lymphadenopathy or JVD. LUNGS: Clear to auscult ation bilaterally. HEART: S1, S2. There is a systolic murmur, crescendo-decrescendo, heard best at the left upper sternal border. ABDOMEN: Soft, nontender, nondistended. EXTREMITIES: Lower extrem ities without edema. Her left upper extremity is edematous and bruised. Her fingers are neurovascul ld intact with good cap refill. LABS: White count 7.5, hematocrit 38.3, MCV is elevated at 103.8, platelets are 171,000. INR 0.9. Sodium 140, potassium 4.3, chloride 105, bicarb 26, BUN 29, creatinine 0.7. LFTs normal. Troponin 0 .017. There is no UA, pending. I discussed the case with Dr. Cynthia Peterson. ASSESSMENT/PLAN: This is an 83-year-old female with frequent falls, urinary tract infection, who pre sents with a wrist fracture. 1. Falls: I think this is multifactorial. Certainly, her medication list includes a few culprits, including cyclobenzaprine and meclizine. I have held these. She has an aortic stenosis murmur, whic h will be addressed below. Physical therapy and Occupational Therapy will see her. 2. Wrist fracture: Orthopedics will see her. Hand is neurovascularly intact. It is not clear if t his is an operative fracture. 3. History of urinary tract infection: She is on Keflex at home. I am not sure if this is chronic. We will go ahead and hold that and wait for a urinalysis. 4. Heart murmur: This is concerning for aortic stenosis, which certainly could be a causative agent of falls. We will check an echocardiogram. 5. Code status: At this point in time, the patient did seem a bit too confused to discuss this. __ paper work at her bedside suggesting she was do not resuscitate. 6. Disposition: Inpatient status. The patient needs a higher level of care. /[id number]/MODL
[2018-01-24] MEDS: ACETAMINOPHEN 500 MG TAB PO SCH ×4 (02:30→21:21)
[2018-01-24 05:31] LABS: PLATELET COUNT 175 10^3/uL (150-400)
[2018-01-24] MEDS: LEVOTHYROXINE 50 MCG TAB PO SCH (05:45)
[2018-01-24] MEDS ORDERED: CEPHALEXIN 500 MG CAP PO SCH (09:00)
[2018-01-24] MEDS: Donepezil Hcl [Aricept] 23 MG PO SCH (09:10)
[2018-01-24] MEDS: ENOXAPARIN 40 MG/0.4 ML SYR SC SCH (09:10)
[2018-01-24] MEDS: ASPIRIN 81 MG CHEWABLE TAB PO SCH (09:11)
--- NOTE | 2018-01-24 10:13 | SOAPPROG ---
SOAP Progress Note Assessment/Plan: Assessment: L distal radius fx. Pt admitted due to falls -splinted in ED Plan: -NWB LUE -maintain splint -f/u with me in the office at [facility] [place], will plan on new xray and placement of cast 01/24/18 10:11 Subjective: States that the splint is uncomfortable. pain ctrl'd Objective: Vital Signs Temp Pulse Resp BP Pulse Ox 37.1 C 66 16 120/63 95 01/24/18 07:11 01/24/18 07:11 01/24/18 07:11 01/24/18 07:11 01/24/18 07:11 Laboratory Results 01/24/18 04:14 01/24/18 04:14 01/23/18 01/24/18 01/25/18 05:59 05:59 05:59 Intake Total 300 Output Total 100 300 Balance 200 -300 PT 12.6 SEC (12.0-15.0) 01/23/18 19:48 INR 0.92 (0.83-1.16) 01/23/18 19:48 LUE -splint in place -NV intact distally -minimal swelling in digits -pt getting out of bed and pushing up with L hand. I advised to avoid weight bearing through the wrist ICD10 Worksheet Patient Problems: Problems Problem Status Onset Closed fracture of right distal radius Acute Dementia Acute Fall from ground level Acute Skin tear of left upper extremity Acute Altered mental status Acute Cellulitis of left lower extremity without foot Acute Failure to thrive in adult Acute Palliative care encounter Acute Urinary tract infection Acute Weakness Acute
[2018-01-24] MEDS ORDERED: PNEUMOC 13-VAL CONJ-DIP CRM/PF 0.5 ML SYR IM ONE ×2 (11:45→14:17)
--- NOTE | 2018-01-24 12:15 | ECHO ---
[email or web address] [address] [address] Main: [phone] Fax: Transthoracic Echocardiogram Name: SID COBB MR#: [id number] Study Date: 01/24/2018 Study Time: 10:21 AM Date of : 1935 Age: 83 year(s) Height: ( ) Weight: ( ) BSA: Gender: Female Examination: Echo Indication: murmur Image Quality: Adequate Contrast: Requested by: Jeison Montalvo BP: 120 mmHg/63 mmHg Heart Rate: Rhythm: Indication: murmur Procedure Staff Commercial Artist: [facility] Reading Physician: Edgardo Land MD Requesting Provider: Conclusions: Normal size left ventricle. Moderate concentric LV hypertrophy. Normal global systolic LV function. Normal RV function. The left atrium is moderately dilated. The right atrium is mildly dilated. Moderate mitral annular calcification. No mitral stenosis is present. Moderate mitral valve regurgitation is present. Eccentric mitral regurgitation. The aortic valve is tri-leaflet. Mild aortic cusp calcification is noted. Mild calcific aortic valve stenosis. Peak Ao velocity of 2.1 m/s, Peak gradient of 18mmHg and mean gradient of 11 mmHg. Mild . Right ventricular systolic pressure measures 36mmHg. No pericardial effusion. Measurements: Chambers Valvular Assessment AV/MV Valvular Assessment TV/PV Normal Normal Normal Name Value Range Name Value Range Name Value Range Ao Tara (2D): 2.9 cm (1.4 cm-2.6 AV Vmax: 2.10 m/s (1 m/s-1.7 TR Vmax: 2.77 mm/s ( - ) cm) m/s) TR PGmax: 31 mmHg ( - ) IVSd (2D): 1.3 cm (0.6 cm-1.1 AV maxP mmHg ( - ) syst. PAP: 36 mmHg ( - ) cm) AV meanP mmHg ( - ) PV Vmax: 0.75 m/s (0.6 m/s-0.9 LVDd (2D): 3.9 cm (3.9 cm-5.3 ALEKS (VTI): 1.0 cm ( - ) m/s) cm) MV E Vmax: 0.93 m/s ( - ) PV PGmax: 2 mmHg ( - ) LVDs (2D): 2.4 cm (2.1 cm-4 MV A Vmax: 1.13 m/s ( - ) cm) MV E/A: 0.82 ( - ) LVPWd (2D): 1.3 cm ( - ) MV PHT: 0.097 s ( - ) Patient: SID COBB Study Date: 01/24/2018 Page 1 of 2 10:21 AM LVOTd 1.8 cm 1.8 cm mm MVA (PHT): 2.3 s ( - ) LVEF (BP): 64 % (>=55 %) RVDd(2D): 2.6 cm (1.9 cm-3.8 cmmm) Continued Measurements: Chambers Valvular Assessment AV/MV Valvular Assessment TV/PV Name Value Name Value Name Value LADs: 4.0 cm MV DecTime: 261 m/s CVP (est.): 5 mmHg LADs Lon.8 cm MV E' Septal: 0.05 m/s LA Area: 23.7 cm2 MV E/E' Septal: 18.30 LA Volume: 81 ml MV E/E' Lateral: 12.40 RA Area: 20.4 cm2 MR PISA radius: 8 mm Additional Vessels Name Value Ao Ascendin.3 cm Inferior Vena Cava: 1.5 cm Findings: Left Ventricle: Normal size left ventricle. Moderate concentric LV hypertrophy. Normal global systolic LV function. EF is 64 %. No regional wall motion abnormality. Grade 1 diastolic dysfunction (abnormal relaxation). Right Ventricle: Normal size right ventricle. Normal RV function. Left Atrium: The left atrium is moderately dilated. Right Atrium: The right atrium is mildly dilated. Mitral Valve: Mild mitral valve leaflet calcification is present. Moderate mitral annular calcification. No mitral stenosis is present. Moderate mitral valve regurgitation is present. Eccentric mitral regurgitation. Aortic Valve: The aortic valve is tri-leaflet. Mild aortic cusp calcification is noted. Mild calcific aortic valve stenosis. Trivial aortic valve regurgitation. Peak Ao velocity of 2.1 m/s, Peak gradient of 18mmHg and mean gradient of 11 mmHg. Mild . Tricuspid Valve: The tricuspid valve is normal in appearance and function. Moderate tricuspid regurgitation is present. Right ventricular systolic pressure measures 36mmHg. Pulmonic Valve: The pulmonic valve is normal in appearance and function. There is no pulmonic regurgitation seen. Aorta: The aorta is normal. Normal size aortic root measuring 2.9 cm. Normal size ascending aorta measuring 2.3 cm. IVC: The IVC is normal sized. Pericardium: No pericardial effusion. No pleural effusion. Exam Comments: Technically difficult imaging, patient supine with broken left arm. (No Signature Object) Patient: SID COBB Study Date: 01/24/2018 Page 2 of 2 10:21 AM [id number]
--- NOTE | 2018-01-24 12:40 | GCON ---
[f rep st] CONSULTATION DATE OF CONSULTATION: 01/23/2018 REFERRING PHYSICIAN: Jeison Montalvo MD REASON FOR CONSULTATION: Left wrist injury. CHIEF COMPLAINT: Left wrist injury. HISTORY OF PRESENT ILLNESS: This is an 83-year-old female with dementia who had a fall at assisted living facility. She has a history of frequent falls at her residence at [place]. When the patient was cleaning up her bedroom, she fell. This was in the morning. The patient presented to the ER about 12 hours later in the evening. She complained of pain in her wrist. Per report from the SNF, she had been following more regularly. Denies LOC. She is being admitted to the hospitalist service due to the frequent falls. REVIEW OF SYSTEMS: 10-point review of systems is negative, except as noted above. PAST MEDICAL HISTORY: Hypothyroidism, dementia, frequent UTI. SOCIAL HISTORY: Nonsmoker. No alcohol. PHYSICAL EXAMINATION: GENERAL: In no acute distress, lying in bed. MUSCULOSKELETAL: Left upper extremity: The left wrist splint is already placed in a sugar-tong splint. There is minimal swelling of her digits. There is ecchymosis of her upper arm. She has intact to AIN, PIN, and ulnar nerves. Sensation is intact median, ulnar, and radial nerve distributions. Her fingers are well perfused. IMAGING: X-ray of the wrist reveal a distal radius fracture with several millimeters of shortening and approximately neutral tilt. There is an ulnar styloid fracture. There are multiple degenerative changes in the wrist. ASSESSMENT/PLAN: Left distal radius fracture. Alignment currently within tolerances. The wrist was splinted by the emergency room staff. The patient is admitted for workup to the hospitalist service for frequent falls. I recommend maintenance of the splint. She is to be nonweightbearing in the left upper extremity. She may see me in a week in the office and will plan on placing a cast for the wrist and repeating the x-ray to assess maintenance of alignment. Please contact me with any questions. /[id number]/MODL MTDD
--- NOTE | 2018-01-24 14:45 | HOSPPROG ---
Hospitalist Progress Note Assessment/Plan: 83y female with c/o arm pain. First encounter, chart reviewed. D/W Dr Vuong #Falls -multifactorial -meds held -PT/OT rec SNF #L distal radius fx. -splinted in ED -NWB LUE -maintain splint #Hx of UTI -UA clean -DC keflex #Heart murmur -ECHO, Aortic valve stenosis -FU outpt #Dispo -reviewed with CM -SNF rec -Pt unable to care for self, needs 24 hour care Subjective: Wants to go home. No pain really. No other issues. Objective: Vital Signs Temp Pulse Resp BP Pulse Ox 36.4 C 67 14 99/48 L 98 01/24/18 11:02 01/24/18 11:02 01/24/18 11:02 01/24/18 11:02 01/24/18 11:02 Laboratory Results 01/24/18 04:14 01/24/18 04:14 01/23/18 01/24/18 01/25/18 05:59 05:59 05:59 Intake Total 300 Output Total 100 300 Balance 200 -300 PT 12.6 SEC (12.0-15.0) 01/23/18 19:48 INR 0.92 (0.83-1.16) 01/23/18 19:48 - Physical Exam Constitutional: no apparent distress, appears nourished, not in pain Eyes: PERRL, anicteric sclera, EOMI Ears, Nose, Mouth, Throat: moist mucous membranes, hearing normal, ears appear normal Cardiovascular: systolic murmur, No JVD, No tachycardia, No edema Respiratory: no respiratory distress, no rales or rhonchi, reduced air movement Gastrointestinal: normoactive bowel sounds, No tenderness, No ascites Skin: warm, normal color, No mottled Musculoskeletal: joint tenderness, pain with ROM, generalized weakness Neurologic: AAOx3 Psychiatric: interacting appropriately, not anxious, poor judgement, poor memory ICD10 Worksheet Patient Problems: Problems Problem Status Onset Urinary tract infection Acute Altered mental status Acute Cellulitis of left lower extremity without foot Acute Weakness Acute Failure to thrive in adult Acute Palliative care encounter Acute Dementia Acute Closed fracture of right distal radius Acute Skin tear of left upper extremity Acute Fall from ground level Acute
--- NOTE | 2018-01-24 15:08 | ASMTCMCOM ---
CM Note CM Note Notes: Pt lives independently at [facility] with 4x daily check-in from unskilled professionals but was admitted for fall and wrist fracture and also had admission in August. Pt has history of dementia and TIAs. [facility] is requesting higher level of care and therapies are recommending SNF or 24 hour supervision, but pt's family is concerned for pt's mental health given past SNF admissions. Spoke with pt's dtr Lashell ([phone]) regarding possibility of returning to [facility] with 24/ unskilled care and home health. Provided Lashell various private duty agency information via email. Sent referrals to [facility] agencies, [facility] and SNF pending daughter's decision. D/C plan TBD. Case Management to follow up with daughter tomorrow. D/C Plan: SNF v [place] with [facility] and private duty. Date Signed: 01/24/2018 03:08 PM Electronically Signed By:Alma Delia Tang
--- NOTE | 2018-01-24 17:27 | PDMN ---
Medical Necessity Medical necessity: Pt meets IP criteria per MD; est los >2 mn for eval/tx of wrist fx s/p mechanical fall & heart murmur concerning for aortic stenosis; requiring further workup/monitoring, Ortho consult & therapies; comorbid advanced age, dementia, hx of falls, recurrent UTIs & chronic urinary incontinence; per H&P & order 01/23/18
[2018-01-25] MEDS: LEVOTHYROXINE 50 MCG TAB PO SCH (07:59)
[2018-01-25] MEDS: ACETAMINOPHEN 500 MG TAB PO SCH ×3 (09:49→21:00)
[2018-01-25] MEDS: ASPIRIN 81 MG CHEWABLE TAB PO SCH (09:51)
[2018-01-25] MEDS: Donepezil Hcl [Aricept] 23 MG PO SCH (09:51)
[2018-01-25] MEDS: ENOXAPARIN 40 MG/0.4 ML SYR SC SCH (09:52)
--- NOTE | 2018-01-25 11:13 | HOSPPROG ---
Hospitalist Progress Note Assessment/Plan: 83y female with c/o arm pain. #Falls -multifactorial -meds held -PT/OT rec SNF #L distal radius fx. -splinted in ED -NWB LUE -maintain splint #Hx of UTI -UA clean -DC keflex #Heart murmur -ECHO, Aortic valve stenosis -FU outpt #Dispo -reviewed with CM -SNF rec -Pt unable to care for self, needs 24 hour care -likely DC to SNF in am Subjective: Up in the chair. No pain. No issues. Objective: Vital Signs Temp Pulse Resp BP Pulse Ox 37.1 C 73 21 H 129/58 H 94 01/25/18 07:23 01/25/18 07:23 01/25/18 07:23 01/25/18 07:23 01/25/18 07:23 Laboratory Results 01/24/18 04:14 01/24/18 04:14 01/24/18 01/25/18 01/26/18 05:59 05:59 05:59 Intake Total 300 800 Output Total 100 300 Balance 200 500 PT 12.6 SEC (12.0-15.0) 01/23/18 19:48 INR 0.92 (0.83-1.16) 01/23/18 19:48 - Physical Exam Constitutional: no apparent distress, appears nourished Eyes: PERRL, anicteric sclera Ears, Nose, Mouth, Throat: moist mucous membranes, hearing normal Cardiovascular: No JVD, No edema Respiratory: no respiratory distress, reduced air movement Gastrointestinal: No tenderness, No ascites Skin: warm, No mottled Musculoskeletal: joint tenderness, pain with ROM, generalized weakness Neurologic: No AAOx3 Psychiatric: not anxious, not encephalopathic, poor insight, poor judgement, poor memory ICD10 Worksheet Patient Problems: Problems Problem Status Onset Urinary tract infection Acute Altered mental status Acute Cellulitis of left lower extremity without foot Acute Weakness Acute Failure to thrive in adult Acute Palliative care encounter Acute Dementia Acute Closed fracture of right distal radius Acute Skin tear of left upper extremity Acute Fall from ground level Acute
--- NOTE | 2018-01-25 17:58 | ASMTCMCOM ---
CM Note CM Note Notes: Spoke with pt's daughter Lashell today. Pt is stating that she would rather than live in assisted living. Pt has frequent admits from mechanical falls. Lashell looked into home instead 22/12 care at [facility], but was not able to arrange due to response from [facility]. Pt is current with [facility]. Palliative consult was placed today. Current plan is for pt to d/c to SNF, [facility] who [facility] awaiting results of Palliative consult. Pt has previously been to [facility] and [facility] and is not interested in returning. Pt is medically stable and awaiting dc when appropriate placement is determined. D/C Plan: SNF, possibly [facility] Date Signed: 01/25/2018 05:58 PM Electronically Signed By:Alma Delia Tang
[2018-01-26] MEDS: LEVOTHYROXINE 50 MCG TAB PO SCH (06:31)
[2018-01-26] MEDS: ACETAMINOPHEN 500 MG TAB PO SCH (06:32)
[2018-01-26] MEDS: ENOXAPARIN 40 MG/0.4 ML SYR SC SCH (08:26)
[2018-01-26] MEDS: ASPIRIN 81 MG CHEWABLE TAB PO SCH (08:31)
[2018-01-26] MEDS: Donepezil Hcl [Aricept] 23 MG PO SCH (08:31)
--- NOTE | 2018-01-26 10:11 | PDIAF ---
- Diagnosis Diagnosis: wrist fx Code Status: Full Code - Medication Management Discharge Medications: Medications to Continue on Transfer Aspirin [Aspirin 81mg (*)] 81 mg PO DAILY 01/23/18 [Last Taken 01/22/18] Donepezil HCl [Aricept] 11.5 mg PO DAILY 01/23/18 [Last Taken 01/22/18] Levothyroxine [Synthroid 50 mcg (*)] 50 mcg PO DAILY06 01/23/18 [Last Taken ] Acetaminophen [Tylenol ES 500 mg (*)] 1,000 mg PO Q8 tab 01/26/18 [Last Taken Unknown] Discharge Medications: Refer to the Discharge Home Medication list for PRN reason. PICC Care - Routine: N/A - Orders Services needed: Registered Nurse, Physical Therapy, Occupational Therapy Diet Recommendation: no restrictions on diet Additional Instructions: Non-weight bearing L upper extremity Elevate L wrist while in bed Encourage ROM of fingers F/[place] [facility] [place] - Follow Up Care Current Providers and Referrals: Patient,NotPresent [Unknown] - As per Instructions Dequan Vuong MD [Medical Doctor] - follow up in 1 week
--- NOTE | 2018-01-26 10:51 | ASMTDCNOTE ---
Case Management Discharge Discharge Order Complete? Answers: Yes Patient to Obtain Answers: Other Notes: [facility] Medications Transportation Arranged Answers: Other Notes: [place] per [facility] Transport will Pick (Date 01/26/2018 12:30 PM & Time) Faxed Final Orders Answers: Yes Family Notified Answers: Yes Discharge Comments Notes: Patient discharged to [facility]. Daughter Lashell notified. Orders faxed. Transport set up by Katelyn @ [facility]. JOBY Cantor to call report. Date Signed: 01/26/2018 10:51 AM Electronically Signed By:Lynne Blanco RN
[2018-01-26 11:00] VITALS: BP 116/49
--- NOTE | 2018-01-26 13:56 | GDS ---
[f rep st] DISCHARGE SUMMARY DISCHARGE DIAGNOSES: 1. Fall. 2. Left distal radius fracture. 3. History of urinary tract infection. 4. Heart murmur. PHYSICAL EXAM: GENERAL: The patient is alert. VITAL SIGNS: Afebrile at 36.4, pulse is 67, respira tory rate is 19, blood pressure is 116/49, she is saturating 97% on room air. I have seen evaluated the patient on the day of discharge. HOSPITAL COURSE: Patient is an 83-year-old female who suffered a mechanical fall and presented to [facility] emergency room. She was evaluated and diagnosed with: 1. Falls. These are likely multifactorial. During this hospitalization, several of her home medica tions were discontinued secondary to increased risk of falling. She is doing well and requires skill ed nursing facility secondary to weakness. 2. Left distal radius fracture. This had been splinted and evaluated by Orthopedics. She is to fol low up with Dr. Dequan Vuong in 1 week and continue splinting of her left upper extremity. 3. History of urinary tract infections. She had a clean urinalysis during this hospitalization with no intervention warranted. 4. A history of heart murmur. Echo shows aortic valve stenosis. She will follow up outpatient sett ing for further evaluation. DISPOSITION: The patient will be discharged to [facility] as she requires continued st rength and conditioning. It is recommended that she have an outpatient palliative therapy and evalua tion while at [facility]. There are no pending studies. DISCHARGE MEDICATIONS: No new medications or prescriptions have been provided for the patient. Discontinued medications include tramadol, meclizine, Keflex, Flexeril. She is to be nonweightbearin g on her left upper extremity. /[id number]/MODL
--- NOTE | 2018-01-26 16:12 | ASDISCHSUM ---
Discharge Information Plan Status:SNF Medically Cleared to Leave: Discharge Date:01/26/2018 01:05 PM D/C Disposition:Half-Way Facility ADT D/C Disposition:Half-Way Facility Projected Discharge Date:01/25/2018 11:00 AM Transportation at D/C: Discharge Delay Reason: Follow-Up Date:01/25/2018 11:00 AM Discharge Slot: Final Diagnosis: Placement Information Referral Type:*Home Health Care Services Referral ID:[id number] Provider Name: Address 1: Phone Number: Address 2: Fax Number: City: Selection Factors: State: Referral Type:Assisted Living Residence Referral ID:[id number] Provider Name: Address 1: Phone Number: Address 2: Fax Number: City: Selection Factors: State: Referral Type:*Retirement/SNF Referral ID:[facility]-[id number] Provider Name:[facility] Address 1:[address] Address 2: City:[place] Selection Factors: State:[place] Patient Contact Information Contact Name:KWASI Relationship:Daughter Address:[address] Work Phone: [facility] Phone: State/Zip Code:[place] [address] Email: Financial Information Financial Class:Medicare Primary Plan Desc:MEDICARE INPATIENT Primary Plan Number:[id number] Secondary Plan Desc:NISSA CHAUNCEY Secondary Plan Number:[id number] Assessment Information [facility] CM Progress Note CM Note CM Note Notes: Pt lives independently at [facility] with 4x daily check-in from unskilled professionals but was admitted for fall and wrist fracture and also had admission in August. Pt has history of dementia and TIAs. [facility] is requesting higher level of care and therapies are recommending SNF or 24 hour supervision, but pt's family is concerned for pt's mental health given past SNF admissions. Spoke with pt's dtr Lashell ([phone]) regarding possibility of returning to [facility] with 24/7 unskilled care and home health. Provided Lashell various private duty agency information via email. Sent referrals to [facility] agencies, [facility] and [facility] pending daughter's decision. D/C plan TBD. Case Management to follow up with daughter tomorrow. D/C Plan: SNF v [facility] with [facility] and private duty. Date Signed: 01/24/2018 03:08 PM Electronically Signed By:Alma Delia Tang [facility] CM Progress Note CM Note CM Note Notes: Spoke with pt's daughter Lashell today. Pt is stating that she would rather than live in assisted living. Pt has frequent admits from mechanical falls. Lashell looked into home instead 22/12 care at [facility], but was not able to arrange due to response from [facility]. Pt is current with [facility]. Palliative consult was placed today. Current plan is for pt to d/c to SNF, referral was sent to [facility] who is awaiting results of Palliative consult. Pt has previously been to [facility] and [facility] and is not interested in returning. Pt is medically stable and awaiting dc when appropriate placement is determined. D/C Plan: SNF, [facility] Date Signed: 01/25/2018 05:58 PM Electronically Signed By:Alma Delia Tang Case Management Discharge Plan Note Case Management Discharge Discharge Order Complete? Answers: Yes Patient to Obtain Answers: Other Notes: [facility] Transportation Arranged Answers: Other Notes: [facility] per [facility] Transport will Pick (Date 01/26/2018 12:30 PM & Time) Faxed Final Orders Answers: Yes Family Notified Answers: Yes Discharge Comments Notes: Patient discharged to [facility]. Daughter Lashell notified. Orders faxed. Transport set up by Katelyn @ [facility]. JOBY Cantor to call report. Date Signed: 01/26/2018 10:51 AM Electronically Signed By:Lynne Blanco RN Intervention Information Intervention Type:*IM-Signed Date of Service:01/26/2018 10:25 AM Patient Type:Inpatient Staff Member:Sarai Worrell Hours: Discipline: Severity: Comment:
== END 2018-01-26 13:05 | DRG 563 ==
LOC: EDUNIT# → F3E 22:30
PROVIDERS: ADMIT Internal Medicine; ATTEND Internal Medicine
PROC: 2W3CX1Z Immobilization of Right Lower Arm using Splint (ICD-10-PCS; principal; 2018-01-23)
DX: S52.501A Unspecified fracture of the lower end of right radius, initial encounter for closed fracture (principal); W19.XXXA Unspecified fall, initial encounter; Y92.193 Bedroom in other specified residential institution as the place of occurrence of the external cause; Y93.E9 Activity, other interior property and clothing maintenance; I35.0 Nonrheumatic aortic (valve) stenosis; F03.90 Unspecified dementia, unspecified severity, without behavioral disturbance, psychotic disturbance, mood disturbance, and anxiety; E03.9 Hypothyroidism, unspecified; Z91.81 History of falling; Z87.440 Personal history of urinary (tract) infections; Z96.643 Presence of artificial hip joint, bilateral
CPT/HCPCS: 80305; 82607-90; 92523-GN; 97116-GP; 97162-GP; 97166-GO; 97530-GP; 97535-GO; A4565; G0009; G0480; G8978-GP-CK; G8979-GP-CJ; G8987-GO-CK; G8988-GO-CI; G9168-GN-CL; G9169-GN-CJ; J1650

== ENCOUNTER → 2018-02-04 | Outpatient (CLI) | payer OTHER | LOC: BMCIMAGING 14:52 | PROVIDERS: ATTEND Orthopaedic Surgery Hand Surgery | DX: S52.552A Other extraarticular fracture of lower end of left radius, initial encounter for closed fracture (principal) ==

== ENCOUNTER → 2018-03-04 | Outpatient (CLI) | payer OTHER | LOC: BMCIMAGING 14:54 | PROVIDERS: ATTEND Orthopaedic Surgery Hand Surgery | DX: S52.522D Torus fracture of lower end of left radius, subsequent encounter for fracture with routine healing (principal); S52.615A Nondisplaced fracture of left ulna styloid process, initial encounter for closed fracture; M15.4 Erosive (osteo)arthritis ==

== ENCOUNTER 2018-03-12 17:32 | Inpatient (IN) | payer OTHER ==
--- NOTE | 2018-03-12 17:44 | EDPHY ---
H & P Time Seen by Provider: 03/12/18 17:37 HPI/ROS: CHIEF COMPLAINT: Fall HISTORY OF PRESENT ILLNESS: Patient is an 83-year-old female with a history of falls in the past. Patient broke her left wrist in December 2017. She is currently wearing a splint. She states that she has a walker that is too old does not work well. She states that this caused her to fall onto her right side. She landed on the floor striking her ribs. She now has right posterior rib pain. No shortness of breath. Pain is worse with movement. Patient did not strike her head. She denies neck or midline back pain. Patient has no hip pain. Patient was unable to get herself up from the floor because of the pain. REVIEW OF SYSTEMS: 10 systems were reveiwed and are negative with the exception of the elements mentioned in the history of present illness. Past Medical/Surgical History: Includes hypothyroidism, dementia, frequent UTI, previous fall, wrist fracture Smoking Status: Never smoked Physical Exam: Vitals noted GENERAL: No acute distress, alert. HEENT: Eyes normal to inspection, normal pharynx, no signs of dehydration. NECK: Normal, supple. No spinal tenderness RESPIRATORY: Clear to auscultation bilaterally, no rales, rhonchi or wheezing. Chest wall: No tenderness to palpation CVS: Regular rate and rhythm, no rubs, murmurs, or gallops. ABDOMEN: Soft, nontender, nondistended, no organomegaly. BACK: Right lateral posterior back pain. No crepitus. No deformity. No spinal tenderness. Normal to inspection. SKIN: Normal color, no rash, warm, dry. No pallor. EXTREMITIES: No pedal edema, no calf tenderness, no Homans sign or cords, no joint swelling. NEURO/PSYCH: Alert and oriented, normal mood and affect, normal motor sensory exam. No obvious cranial nerve deficit. Constitutional: Initial Vital Signs Temperature (C) 36.6 C 03/12/18 17:37 Heart Rate 70 03/12/18 17:37 Respiratory Rate 18 03/12/18 17:37 Blood Pressure 142/66 H 03/12/18 17:37 O2 Sat (%) 96 03/12/18 17:37 O2 Delivery Mode Room Air Allergies/Adverse Reactions: No Known Allergies Allergy (Verified 03/12/18 17:37) Home Medications: Medication Instructions Recorded Aspirin [Aspirin 81mg (*)] 81 mg PO DAILY 01/23/18 Donepezil HCl [Aricept] 11.5 mg PO DAILY 01/23/18 Levothyroxine [Synthroid 50 mcg 50 mcg PO DAILY06 01/23/18 (*)] Acetaminophen [Tylenol ES 500 mg 1,000 mg PO Q8 tab 01/26/18 (*)] Medical Decision Making - Diagnostics Imaging Results: Imaging Impressions Chest X-Ray 03/12/18 17:59 Impression: 1. No pneumothorax. 2. Chronic bronchitis. 3. Mild cardiomegaly and atherosclerotic aorta. 4. Questionable nondisplaced right mid axillary rib fracture for which additional dedicated rib series could be of further benefit, if clinically indicated. Findings and recommendations discussed with Emergency Department physician, Vicki Tsai M.D., at 1842 hours, on March 12, 2018. Final report concurs with initial preliminary interpretation. ED Course/Re-evaluation: In the emergency department I met the patient on arrival. I discussed the plan with the patient. I answered all her questions. An x-ray was ordered. Chest x-ray: Patient has a right posterior rib fracture. No pneumo or hemothorax. I discussed this with the radiologist Dr. Strickland. Discussed the results with the patient. Patient was unable to ambulate at the bedside due to the pain. I did not feel she is safe for discharge home. Because of this she will be admitted to the hospitalist service. I discussed this with Dr. Corona. Because she will be admitted CBC and chemistry were ordered. EKG shows normal sinus rhythm, normal rate, normal axis, normal intervals. There are no ST or T-wave abnormalities. EKG is normal as interpreted by me. Differential Diagnosis: My differential includes but is not limited to fracture, dislocation, contusion , pneumothorax, hemothorax. Patient reports his mechanical fall. I doubt ACS, acute IN, dysrhythmia, electrolyte abnormality, sugar abnormality, dehydration - Data Points Medications Given: Discontinued Medications Ondansetron HCl (Zofran Odt) 4 mg PO EDNOW ONE Stop: 03/12/18 19:11 Last Admin: 03/12/18 19:12 Dose: 4 mg Departure - Departure Disposition: [facility] In[facility] Acute Clinical Impression: Fall Qualifiers: Encounter type: initial encounter Qualified Code(s): W19.XXXA - Unspecified fall, initial encounter Contusion of rib Qualifiers: Encounter type: initial encounter Laterality: right Qualified Code(s): S20.211A - Contusion of right front wall of thorax, initial encounter Rib fracture Qualifiers: Encounter type: initial encounter Rib fracture type: single rib Fracture type: closed Laterality: right Qualified Code(s): S22.31XA - Fracture of one rib, right side, initial encounter for closed fracture Condition: Good
[2018-03-12] MEDS ORDERED: ONDANSETRON DISINTEGRATING 4 MG TAB ONE (19:06)
[2018-03-12] MEDS ORDERED: ONDANSETRON DISINTEGRATING 4 MG TAB PO ONE (19:10)
[2018-03-12 19:31] LABS: PLATELET COUNT 204 10^3/uL (150-400)
--- NOTE | 2018-03-12 19:34 | PDGENHP ---
History and Physical History and Physical: CC: Fall today with rib fractures HISTORY: This patient is sent in from the [facility] where she fell today landing on her right side with right chest wall pain. It is difficult to get a clear story from the patient in terms of exactly how we she fell but it sounds like a mechanical fall with no acute neuro cardiovascular pulmonary GI or infectious symptoms. She was not able to get up on her own and was brought in by ambulance. The only pain she has from this falls on the posterior right ribcage at about the 8th or so level. She does not feel short of breath, has no headache, no neurologic symptoms, no spine pain and no pain in her limbs or joints. Notably the patient has a known chronic gait instability with multiple falls including previous injury falls with fracture in fact is still wearing a left wrist splint from a recent left wrist fracture which she was treated for here. An attempt was made by the ER staff to see if she could get up to walk but the patient was unable to adequately do a transfer from the [facility] to her feet and that effort was aborted. ROS: A comprehensive 10 system review revealed no other significant findings PAST MEDICAL HISTORY: Chronic gait instability with previous injury false Osteoporosis Distal radius fracture Dementia Urinary tract infections Atherosclerosis incidentally noted on a previous CT scan of head Arthritis, bilateral hip replacements Hypothyroidism Hysterectomy and appendectomy FAMILY MEDICAL HISTORY: No pertinent or concerning issues at this time SOCIAL HISTORY: Has lived at the [facility] No tobacco This is her 4th hospital admission in 2018, 3 of which included falls; we have been able to demonstrate during previous assessments that she is not taking all of her prescribed medicines at home as they were intended MEDICATIONS: The patients list has been reconciled by our clinical pharmacist in the EMR. I have reviewed the list and ordered appropriate medicines. PHYSICAL EXAMINATION: Vital Signs: Mildly hypertensive other de [place] normal without fever Rn Patient Care: Examination: General: alert, oriented, relaxed Neurologic: Obvious significant memory deficit, appears to be likely be her baseline; no signs of any delirium, normal speech/language, normal standard machine stitcher, no focal weakness Skin: warm, dry, good color, no rash HEENT: normal Neck: no mass or jvd Chest: She does have tenderness posteriorly ribs approximately 8 and 9 Resps: relaxed Lungs: clear breath sounds Heart: regular, no murmur Abdomen: soft, nondistended, nontender, +BS, no mass Extremities: no edema, warm, no evidence of injury to the limbs or joints acutely though she still has a left wrist splint in place from a distal radial fracture several weeks ago, the hand looks good and is functioning well with normal sensation No Bleeding or bruising IV site: looks normal LABORATORY DATA: Her white blood cell count a little bit elevated at 11,000 thousand with 8000 neutrophils, Mild macrocytic anemia which is chronic and at her baseline with hemoglobin 12; she does have 2 normal B12 levels in the past year BUN slightly high at 26 otherwise unremarkable metabolic panel RADIOLOGY STUDIES: I reviewed images of Chest x-ray done in the ER which shows 2 right-sided rib fractures corresponding to the location of her pain 12 LEAD EKG: I reviewed 12 lead EKG from the ER, the tracing shows a sinus rhythm with no concerning abnormalities ASSESSMENT: * fall at home with injury today; rib fractures on the right without pneumothorax or hemothorax * previous history of multiple falls some with injuries, chronic gait instability * possible mild dehydration as evidenced by elevated BUN which could have aggravated her fall risk today * dementia * Osteoporosis * hypothyroidism on replacement This patient now with 3 hospital admissions involving falls to with broken bones in this calendar year from her assisted living apartment. Once again question whether she is able to maintain adequate safety in that setting, question whether more involved supervision 1 where another should be put into place PLANS: * Inpatient admission due to her severe instability and unsafe to return home, will not be able to leave here within 48 hr * Gentle IV hydration * Fall risk precautions PT and OT * DVT prophylaxis * Lidoderm patch and other analgesia as needed for her ribs * She should be considered for anti resorptive therapy; will be useful to check with primary care records to see if she gets any injected therapy but she does not appear to be on anything oral * Check vitamin-D levels; these were low in 2014 but in better range in 2017; is not on any vitamin-D or calcium supplements now so will add calcium to start with while waiting for D level I have reviewed the patient's case in detail with Dr. Vicki Tsai I have reviewed the patient's past medical records as part of this assessment, including previous hospital admission records from this hospital
[2018-03-12] MEDS ORDERED: ONDANSETRON 4 MG/2 ML VIAL IVP PRN (19:36)
[2018-03-12] MEDS ORDERED: NS 1,000 ML IV SCH (19:45)
[2018-03-12] MEDS: CALCIUM CARBONATE 500 MG TAB PO SCH (21:13)
[2018-03-12] MEDS: ASPIRIN 81 MG CHEWABLE TAB PO SCH (21:13)
[2018-03-12] MEDS: MELATONIN 3 MG TAB PO SCH (21:13)
[2018-03-12] MEDS: ACETAMINOPHEN 325 MG TAB PO PRN (21:13)
[2018-03-12] MEDS: DONEPEZIL PO SCH (21:14)
[2018-03-12] MEDS: PATCH REMOVAL 1 EA PATCH TD SCH (21:34)
--- NOTE | 2018-03-12 23:20 | CPEKG ---
Test Reason : OPEN Blood Pressure : / mmHG Vent. Rate : 068 BPM Atrial Rate : 068 BPM P-R Int : 139 ms QRS Dur : 095 ms QT Int : 437 ms P-R-T Axes : 070 053 043 degrees QTc Int : 465 ms Sinus rhythm Confirmed by Vicki Tsai ([id number]) on 03/12/2018 11:19:36 PM Referred By: Confirmed By:Vicki Tsai
[2018-03-13] MEDS: ACETAMINOPHEN 325 MG TAB PO PRN (05:59)
[2018-03-13] MEDS: LEVOTHYROXINE 50 MCG TAB PO SCH (06:00)
[2018-03-13] MEDS: LIDOCAINE 4%/MENTHOL 1% PATCH TD SCH (08:20)
[2018-03-13] MEDS: CALCIUM CARBONATE 500 MG TAB PO SCH ×2 (08:23→21:17)
[2018-03-13] MEDS: ENOXAPARIN 40 MG/0.4 ML SYR SC SCH (08:23)
--- NOTE | 2018-03-13 10:19 | ASMTCMCOM ---
CM Note CM Note Notes: Pt is an 83 y/o female who came to the ED following a fall from which she she could not get up on her own. She was diagnosed with a rib fracture. This is the 4th hospitalization this year for pt; 3 of these were due to falls. In December she broke her wrist; this remains in a splint. Pt also has some dementia with orientation to person and place, but some difficulty with time and situation. Pt lives at [facility]. She has 2 daughters who are involved in her care. There are significant concerns over her safety if she returns to her present living situation. PT/OT has been ordered. CM will follow. D/C Plan: TBD Date Signed: 03/13/2018 10:18 AM Electronically Signed By:Marina Brisceo
--- NOTE | 2018-03-13 11:43 | PDMN ---
Medical Necessity Medical necessity: Pt meets IP criteria per & ERYN [id number]; est los >2 mn for eval/tx of R-sided rib fxs s/p fall w/inability to ambulate & dehydration; admit for further monitoring/safety, IVFs, pain management & therapies; comorbid advanced age, severe gait instability, multiple falls w/fxs (most recent L wrist fx-splint in place), dementia, osteoporosis; per H&P & order 05/18
[2018-03-13] MEDS ORDERED: POLYETHYLENE GLYCOL 3350 17 GM PKT PO PRN (12:13)
[2018-03-13] MEDS ORDERED: LACTULOSE 20 GM/30 ML UDCUP PO PRN (12:13)
[2018-03-13] MEDS ORDERED: MAGNESIUM HYDROXIDE 30 ML UDCUP PO PRN (12:13)
[2018-03-13] MEDS ORDERED: BISACODYL 10 MG SUPP PR PRN (12:13)
--- NOTE | 2018-03-13 13:58 | HOSPPROG ---
Hospitalist Progress Note Assessment/Plan: * fall at home with injury prior to arrival -rib fractures on the right without pneumothorax or hemothorax -lidoderm patch -pulm toilet -PT/OT evals for safety/mobility concerns given freq falls and hospitalizations * previous history of multiple falls some with injuries, chronic gait instability -PT/OT as above -CM to discuss with family re [facility]/SNF * possible mild dehydration as evidenced by elevated BUN which could have aggravated her fall risk -continue with NS hydration * dementia -family not available at bedside today so unsure her baseline -CM to discuss [facility] care plans with family also * Osteoporosis -check vit d * hypothyroidism on replacement -TSH OK *L wrist fracture -Dr Vuong to evaluate *macrocytic anemia -check B12/folate -discuss with her/family if any EtoH DVT prophylaxis- lovenox PCP Dr Laney Cooper DNR (MOST form scanned into chart) DISPO- unclear at this time, pending evaluations and discussion re appropriate setting for her to discharge to Subjective: Wants to be moving, says doesn't like 2 wheel walkers 'that's why I fell.' No n/v/sob. + pain sometimes with breathing. not doing IS well per nursing. Objective: Vital Signs Temp Pulse Resp BP Pulse Ox 97.4 F 60 14 118/53 L 97 03/13/18 12:43 03/13/18 12:43 03/13/18 12:43 03/13/18 12:43 03/13/18 12:43 03/12/18 03/13/18 03/14/18 11:59 11:59 11:59 Intake Total 300 Output Total 400 200 Balance -100 -200 - Time Spent With Patient Time Spent with Patient: greater than 35 minutes Time Spent with Patient: Greater than 35 minutes spent on this patients care, greater than 50% of time spent counseling, educating, and coordinating care regarding the above mentioned plan. - Pending Discharge Pending Discharge Within 48 Hours: No - Physical Exam Constitutional: no apparent distress, appears nourished, not in pain Eyes: anicteric sclera Ears, Nose, Mouth, Throat: moist mucous membranes, hearing normal Cardiovascular: regular rate and rhythym, No edema Respiratory: no respiratory distress, no rales or rhonchi, clear to auscultation Gastrointestinal: normoactive bowel sounds Skin: warm, normal color, other (no bruising of chest wall noted, large firm bruise just superior to L patella) Musculoskeletal: other (L wrist in brace) Psychiatric: interacting appropriately, poor memory ICD10 Worksheet Patient Problems: Problems Problem Status Onset Contusion of rib Acute Fall Acute Rib fracture Acute Altered mental status Acute Cellulitis of left lower extremity without foot Acute Closed fracture of right distal radius Acute Dementia Acute Failure to thrive in adult Acute Fall from ground level Acute Palliative care encounter Acute Skin tear of left upper extremity Acute Urinary tract infection Acute Weakness Acute
--- NOTE | 2018-03-13 14:40 | ASMTCMCOM ---
CM Note CM Note Notes: CM met with pt. Conversation focused on whether she was receiving enough help where she was living now. Although pt not completely lucid due to dementia she was able to express some concerns about her safety and mentioned "nursing facilities". She asked who would make the decision to move her from where she was living now. CM called daughter, Lashell, and left a message. CM to follow. D/C Plan: TBD Date Signed: 03/13/2018 02:39 PM Electronically Signed By:Marina Briscoe
--- NOTE | 2018-03-13 14:55 | SOAPPROG ---
SOAP Progress Note Assessment/Plan: Assessment: L distal radius fracture, 7 wks out -I saw the patient in the office 1 week ago. Xray was done that day. Images showed healing of the fracture Plan: -new xray of the L wrist as the patient had a fall -I will review the xray. Continue wrist brace for now. She can weight bear on the L wrist to use walker with the brace 03/13/18 14:51 03/13/18 14:55 Subjective: Lupe is in the hospital again after another fall. She has other complains, but her wrist is doing well. No pain in brace Objective: Vital Signs Temp Pulse Resp BP Pulse Ox 36.3 C 60 14 118/53 L 97 03/13/18 12:43 03/13/18 12:43 03/13/18 12:43 03/13/18 12:43 03/13/18 12:43 03/12/18 03/13/18 03/14/18 05:59 05:59 05:59 Intake Total 300 Output Total 600 Balance 300 -600 L wrist -brace removed, minimal discomfort with active ROM -nttp over distal radius -no swelling in wrist, there is some mild edema in thumb and fingers ICD10 Worksheet Patient Problems: Problems Problem Status Onset Contusion of rib Acute Fall Acute Rib fracture Acute Altered mental status Acute Cellulitis of left lower extremity without foot Acute Closed fracture of right distal radius Acute Dementia Acute Failure to thrive in adult Acute Fall from ground level Acute Palliative care encounter Acute Skin tear of left upper extremity Acute Urinary tract infection Acute Weakness Acute
[2018-03-13] MEDS: ACETAMINOPHEN 500 MG TAB PO SCH (18:03)
[2018-03-13] MEDS: DONEPEZIL PO SCH (21:17)
[2018-03-13] MEDS: MELATONIN 3 MG TAB PO SCH (21:17)
[2018-03-13] MEDS: SENNOSIDES/DOCUSATE SODIUM TAB PO SCH (21:17)
[2018-03-13] MEDS: ASPIRIN 81 MG CHEWABLE TAB PO SCH (21:17)
[2018-03-13] MEDS: PATCH REMOVAL 1 EA PATCH TD SCH (23:32)
[2018-03-14] MEDS: ACETAMINOPHEN 500 MG TAB PO SCH ×2 (00:43→05:23)
[2018-03-14] MEDS: LEVOTHYROXINE 50 MCG TAB PO SCH (05:23)
[2018-03-14 05:32] LABS: PLATELET COUNT 163 10^3/uL (150-400)
[2018-03-14] MEDS: CALCIUM CARBONATE 500 MG TAB PO SCH ×2 (09:21→19:55)
[2018-03-14] MEDS: SENNOSIDES/DOCUSATE SODIUM TAB PO SCH ×2 (09:22→19:54)
[2018-03-14] MEDS: LIDOCAINE 4%/MENTHOL 1% PATCH TD SCH (09:22)
[2018-03-14] MEDS: ENOXAPARIN 40 MG/0.4 ML SYR SC SCH (09:22)
[2018-03-14] MEDS ORDERED: NAPROXEN SODIUM 220 MG TAB PO PRN (09:30)
[2018-03-14] MEDS: ACETAMINOPHEN 325 MG TAB PO SCH ×3 (11:34→22:53)
--- NOTE | 2018-03-14 11:46 | HOSPPROG ---
Hospitalist Progress Note Assessment/Plan: * fall at home with injury prior to arrival -rib fractures on the right without pneumothorax or hemothorax -lidoderm patch, scheduled tylenol dose increased, prn anaprox ds (trying to avoid opioids bc of falling/memory issues) -pulm toilet -PT/OT evals-both recommend SNF * previous history of multiple falls some with injuries, chronic gait instability -PT/OT as above -OK with family to discharge to SNF per CM * possible mild dehydration, resolved -dc IVF * dementia -family not available at bedside yesterday or today, so unsure her baseline -CM discussing [facility] care plans with family also * Osteoporosis -vit d low end nl, add supplement * hypothyroidism on replacement -TSH OK *L wrist fracture -Dr Vuong re-evaluated, appreciate his note *macrocytic anemia, stable -low but nl range B12/folate, add b complex -discuss with her/family if any EtoH, but no family at bedside this weekend DVT prophylaxis- lovenox PCP Dr Laney Cooper DNR (MOST form scanned into chart) DISPO- [facility], discharge there in AM if clinically OK Subjective: A little more rib pain today. No n/v. Family not in room during rounds. Denies SOB/CP. Eager to leave hospital. Objective: Vital Signs Temp Pulse Resp BP Pulse Ox 98.0 F 71 16 125/52 H 92 03/14/18 11:28 03/14/18 11:28 03/14/18 11:28 03/14/18 11:28 03/14/18 11:28 Laboratory Results 03/14/18 04:52 03/14/18 04:52 03/12/18 03/13/18 03/14/18 11:59 11:59 11:59 Intake Total 300 1350 Output Total 400 400 Balance -100 950 - Physical Exam Constitutional: no apparent distress, appears nourished Eyes: anicteric sclera Ears, Nose, Mouth, Throat: moist mucous membranes, hearing normal Cardiovascular: regular rate and rhythym, No edema Respiratory: no respiratory distress, no rales or rhonchi, clear to auscultation Gastrointestinal: soft, non-tender abdomen, No guarding, No rebound, No distension Skin: warm Psychiatric: interacting appropriately, poor memory ICD10 Worksheet Patient Problems: Problems Problem Status Onset Contusion of rib Acute Fall Acute Rib fracture Acute Altered mental status Acute Cellulitis of left lower extremity without foot Acute Closed fracture of right distal radius Acute Dementia Acute Failure to thrive in adult Acute Fall from ground level Acute Palliative care encounter Acute Skin tear of left upper extremity Acute Urinary tract infection Acute Weakness Acute
--- NOTE | 2018-03-14 12:04 | ASMTCMCOM ---
CM Note CM Note Notes: Patient ready for discharge/Hospitalist. Left message for patient's daughter, Lashell who is hewr MPOA. Contacted patient's other daughter Lupe and she reports that patient was just at [facility], was d/c'd on Thursday. She doesn't need the 3 midnights to return to their facility. PT/OT recommending SNF. She has dementia, falling and now has rib fx's. Referral sent to [facility]. Date Signed: 03/14/2018 12:03 PM Electronically Signed By:Fatimah Wright LCSW
[2018-03-14] MEDS: MAGNESIUM HYDROXIDE 30 ML UDCUP PO SCH (15:26)
[2018-03-14] MEDS: ASPIRIN 81 MG CHEWABLE TAB PO SCH (19:54)
[2018-03-14] MEDS: PATCH REMOVAL 1 EA PATCH TD SCH (19:56)
[2018-03-14] MEDS: DONEPEZIL PO SCH (19:56)
[2018-03-14] MEDS: MELATONIN 3 MG TAB PO SCH (19:56)
--- NOTE | 2018-03-14 23:47 | SOAPPROG ---
SOAP Progress Note Assessment/Plan: Assessment: L distal radius fracture, 7 wks out -I reviewed xray of the L wrist. The images show healing and maintained alignment. Plan: -Continue wrist brace. She can weight bear on the L wrist to use walker with the brace -F/u in the office in 3 wks 03/14/18 23:46 Objective: Vital Signs Temp Pulse Resp BP Pulse Ox 36.8 C 67 16 119/54 L 94 03/14/18 23:11 03/14/18 23:11 03/14/18 23:11 03/14/18 23:11 03/14/18 23:11 Laboratory Results 03/14/18 04:52 03/14/18 04:52 03/13/18 03/14/18 03/15/18 05:59 05:59 05:59 Intake Total 300 1350 750 Output Total 800 400 Balance 300 550 350 ICD10 Worksheet Patient Problems: Problems Problem Status Onset Contusion of rib Acute Fall Acute Rib fracture Acute Altered mental status Acute Cellulitis of left lower extremity without foot Acute Closed fracture of right distal radius Acute Dementia Acute Failure to thrive in adult Acute Fall from ground level Acute Palliative care encounter Acute Skin tear of left upper extremity Acute Urinary tract infection Acute Weakness Acute
[2018-03-15] MEDS: ACETAMINOPHEN 325 MG TAB PO SCH ×2 (04:17→11:37)
[2018-03-15] MEDS: LEVOTHYROXINE 50 MCG TAB PO SCH (04:17)
[2018-03-15 08:06] VITALS: BP 126/51
--- NOTE | 2018-03-15 08:07 | HOSPPROG ---
Hospitalist Progress Note Assessment/Plan: Patient is an 83 y/o female who fell on her right side and sustained rib fx. Today is my first encounter w the patient, chart reviewed. * fall at home with injury prior to arrival -rib fractures on the right without pneumothorax or hemothorax -Lidoderm patch, scheduled tylenol dose, prn naproxen -PT/OT evals-both recommend SNF -hx of falls * rib fx -pulmonary toileting * possible mild dehydration, resolved -dc IVF * dementia -CM discussing senior care care plans with family * Osteoporosis -vit d low end nl, add supplement * hypothyroidism on replacement -TSH OK *L distal radius wrist fracture -Dr Vuong re-evaluated, f/u with him in OP setting *macrocytic anemia, stable -low but nl range B12/folate, add b complex -discuss with her/family if any EtoH, but no family at bedside this weekend *Plan: dc to [facility], will need aggressive pulmonary toileting Subjective: zoya is having increase pain on right side of rib area with movement and deep breathing. Objective: Vital Signs Temp Pulse Resp BP Pulse Ox 36.7 C 57 L 18 126/51 H 94 03/15/18 08:00 03/15/18 08:00 03/15/18 08:00 03/15/18 08:00 03/15/18 08:00 Laboratory Results 03/14/18 04:52 03/14/18 04:52 03/14/18 03/15/18 03/16/18 05:59 05:59 05:59 Intake Total 1350 1550 Output Total 800 400 Balance 550 1150 - Physical Exam Constitutional: uncomfortable, other (thin) Eyes: PERRL Ears, Nose, Mouth, Throat: hearing normal Cardiovascular: regular rate and rhythym Respiratory: no respiratory distress, reduced air movement (r base) Gastrointestinal: normoactive bowel sounds Skin: warm Neurologic: other (alert and oriented to person, situation, but not to place) Psychiatric: interacting appropriately, poor memory ICD10 Worksheet Patient Problems: Problems Problem Status Onset Contusion of rib Acute Fall Acute Rib fracture Acute Altered mental status Acute Cellulitis of left lower extremity without foot Acute Closed fracture of right distal radius Acute Dementia Acute Failure to thrive in adult Acute Fall from ground level Acute Palliative care encounter Acute Skin tear of left upper extremity Acute Urinary tract infection Acute Weakness Acute
[2018-03-15] MEDS: SENNOSIDES/DOCUSATE SODIUM TAB PO SCH (08:14)
[2018-03-15] MEDS: MAGNESIUM HYDROXIDE 30 ML UDCUP PO SCH (08:15)
[2018-03-15] MEDS: CALCIUM CARBONATE 500 MG TAB PO SCH (08:16)
[2018-03-15] MEDS: ENOXAPARIN 40 MG/0.4 ML SYR SC SCH (08:20)
[2018-03-15] MEDS ORDERED: VITAMIN B COMPLEX 1 EA CAP/TAB PO SCH (09:00)
[2018-03-15] MEDS ORDERED: CHOLECALCIFEROL VIT D3 2,000 UNITS TAB/CAP PO SCH (09:00)
--- NOTE | 2018-03-15 09:59 | PDIAF ---
- Diagnosis Diagnosis: gait instability w fall, left distal radius fx (7 weeks ago), r rib fx Code Status: Do Not Resuscitate - Medication Management Discharge Medications: Medications to Continue on Transfer Aspirin [Aspirin 81mg (*)] 81 mg PO HS 01/23/18 [Last Taken 03/11/18] Donepezil HCl [Aricept] 11.5 mg PO HS 01/23/18 [Last Taken 03/11/18] Levothyroxine [Synthroid 50 mcg (*)] 50 mcg PO DAILY06 01/23/18 [Last Taken 05/18] Acetaminophen [Tylenol ES 500 mg (*)] 1,000 mg PO Q8H PRN 03/12/18 [Last Taken Unknown] Calcium Carbonate [Oyster Shell Calcium 500 mg (*)] 500 mg PO BID tab 03/15/18 [Last Taken Unknown] Cholecalciferol Vit D3 [Vitamin D3 2000 units tab (OTC)] 2,000 units PO DAILY each 03/15/18 [Last Taken Unknown] Lidocaine 4%/Menthol 1% [Icy Hot Lidocaine/Menthol 4%/1% Patch (*)] 1 patch TD DAILY patch 03/15/18 [Last Taken Unknown] Melatonin [Melatonin 3 MG (*)] 3 mg PO HS tab 03/15/18 [Last Taken Unknown] Naproxen Sodium [Aleve 220 MG (*)] 220 mg PO BID PRN tab 03/15/18 [Last Taken Unknown] Patch Removal 1 ea TD DAILY21 patch 03/15/18 [Last Taken Unknown] Polyethylene Glycol 3350 [Miralax 17 gm (*)] 17 gm PO DAILY PRN pkt 03/15/18 [ Last Taken Unknown] Sennosides/Docusate Sodium [Senokot-S] 1 - 2 tab PO BID tab 03/15/18 [Last Taken Unknown] Vitamin B Complex [Vitamin B Complex (OTC)] 1 ea PO DAILY ea 03/15/18 [Last Taken Unknown] Discharge Medications: Refer to the Discharge Home Medication list for PRN reason. - Orders Services needed: Physical Therapy, Occupational Therapy Diet Recommendation: no restrictions on diet Diet Texture: Regular Texture Diet Additional Instructions: f/u with DR Vuong in 3 weeks wear brace ok to bear weight on left wrist to use walker patient has a right rib fracture, needs aggressive pulmonary toileting - Follow Up Care Current Providers and Referrals: NONE *PRIMARY CARE P,. [Primary Care Provider] - As per Instructions Dequan Vuong MD [Medical Doctor] - (f/u in 3 wks)
--- NOTE | 2018-03-15 10:15 | ASMTDCNOTE ---
Case Management Discharge Discharge Order Complete? Answers: Yes Patient to Obtain Answers: Other Notes: [facility] Transportation Arranged Answers: Other Notes: [facility] Transport will Pick (Date 03/15/2018 11:30 AM & Time) Faxed Final Orders Answers: Yes Family Notified Answers: Yes Discharge Comments Notes: Patient discharging to [facility]. Orders sent. Transport arranged by Katelyn. Daughter notified. JOBY Giles to call report. Date Signed: 03/15/2018 10:14 AM Electronically Signed By:Lynne Blanco RN
[2018-03-15] MEDS: LIDOCAINE 4%/MENTHOL 1% PATCH TD SCH (11:09)
--- NOTE | 2018-03-15 12:30 | GDS ---
DISCHARGE DIAGNOSES: 1. Gait instability with fall at home with injury prior to arrival. 2. Rib fracture. 3. Mild dehydration. 4. Dementia. 5. Osteoporosis. 6. Hypothyroidism. 7. Left distal radius wrist fracture. 8. Macrocytic anemia. HISTORY OF PRESENT ILLNESS: Briefly, the patient is an 83-year-old female who fell on her right side and sustained a rib fracture. She also had a noted left distal radius wrist fracture that occurred approximately 7 weeks ago. She was admitted for further care. CONSULTATIONS: Dr. Dequan Vuong. HOSPITAL COURSE: 1. Gait instability with fall. One the main issues is that she is having pain from the rib fracture. She does not have a pneumothorax or a hemothorax, using a Lidoderm patch. [facility]. 2. Rib fracture. She will need aggressive pulmonary toileting. 3. Dehydration, resolved. 4. Dementia. The patient likely needs long-term care. 5. Osteoporosis, on vitamin D. 6. Hypothyroidism, on replacement. 7. Left distal radius fracture. Dr. Vuong re-evaluated. She is to follow up with him in a few weeks. It is okay for her to be weightbearing with use of a walker. 8. Macrocytic anemia, stable. DISCHARGE CONDITION: Stable. Blood pressure is 126/51, heart rate of 57, respiratory rate of 18, O2 saturation on room air 94%, temperature 36.7 Celsius. DISCHARGE MEDICATIONS: Please see the EMR. DISCHARGE INSTRUCTIONS: 1. To follow up with Dr. Vuong. 2. I have asked that the rehab facility do aggressive pulmonary toileting. Greater than 30 minutes discharging and coordinating the patient's care. /[id number]/MODL MTDD
--- NOTE | 2018-03-17 10:54 | ASDISCHSUM ---
Discharge Information Plan Status:SNF Medically Cleared to Leave: Discharge Date:03/15/2018 12:19 PM CM D/C [facility] D/C Dis[facility] Projected Discharge Date:03/14/2018 03:00 PM Transportation at D/C:Wheelchair Van Discharge Delay Reason: Follow-Up Date:03/14/2018 03:00 PM Discharge Slot: Final Diagnosis:Fall: rib fx's Placement Information Referral Type:*Shelter/SNF Referral ID:[id number] Provider Name:[facility] Address 1:[address] Address 2: City:[place] Selection Factors: State:[place] Patient Contact Information Contact Name:KWASI Relationship:Daughter Address:[address] Work Phone: [facility]:[place] Alternate Phone: State/Zip Code:[place] [address] Email: Financial Information Financial Class:Medicare Primary Plan Desc:MEDICARE INPATIENT Primary Plan Number:[id number] Secondary Plan Desc:[facility] Secondary Plan Number:[id number] Assessment Information [facility] CM Progress Note CM Note CM Note Notes: Pt is an 83 y/o female who came to the ED following a fall from which she she could not get up on her own. She was diagnosed with a rib fracture. This is the 4th hospitalization this year for pt; 3 of these were due to falls. In December she broke her wrist; this remains in a splint. Pt also has some dementia with orientation to person and place, but some difficulty with time and situation. Pt lives at [facility]. She has 2 daughters who are involved in her care. There are significant concerns over her safety if she returns to her present living situation. PT/OT has been ordered. CM will follow. D/C Plan: TBD Date Signed: 03/13/2018 10:18 AM Electronically Signed By:Marina Briscoe [facility] Progress Note CM Note CM Note Notes: CM met with pt. Conversation focused on whether she was receiving enough help where she was living now. Although pt not completely lucid due to dementia she was able to express some concerns about her safety and mentioned "nursing facilities". She asked who would make the decision to move her from where she was living now. CM called daughter, Lashell, and left a message. CM to follow. D/C Plan: TBD Date Signed: 03/13/2018 02:39 PM Electronically Signed By:Marina Rachna [facility] Progress Note CM Note CM Note Notes: Patient ready for discharge/Hospitalist. Left message for patient's daughter, Lashell who is hewr MPOA. Contacted patient's other daughter Lupe and she reports that patient was just at [facility], was d/c'd on Thursday. She doesn't need the 3 midnights to return to their facility. PT/OT recommending SNF. She has dementia, falling and now has rib fx's. Referral sent to [facility]. Date Signed: 03/14/2018 12:03 PM Electronically Signed By:Fatimah Wright LCSW Case Management Discharge Plan Note Case Management Discharge Discharge Order Complete? Answers: Yes Patient to Obtain Answers: Other Notes: [facility] Transportation Arranged Answers: Other Notes: [facility] Transport will Pick (Date 03/15/2018 11:30 AM & Time) Faxed Final Orders Answers: Yes Family Notified Answers: Yes Discharge Comments Notes: Patient discharging to [facility]. Orders sent. Transport arranged by Katelyn. Daughter notified. JOBY Giles to call report. Date Signed: 03/15/2018 10:14 AM Electronically Signed By:Lynne Blanco RN Intervention Information Intervention Type:*Incorrect Registration Date of Service:03/12/2018 11:20 AM Patient Type:Observation Staff Member:JOBY Montalvo, Valerie Hours: Discipline: Severity: Comment: Intervention Type:*IM-Signed Date of Service:03/15/2018 11:24 AM Patient Type:Inpatient Staff Member:Sarai Worrell Hours: Discipline: Severity: Comment:
== END 2018-03-15 12:19 | DRG 206 ==
LOC: EDUNIT# → OBSVTOIN 19:36 → F3N 20:25
PROVIDERS: ADMIT Internal Medicine; ATTEND Internal Medicine
DX: S22.31XA Fracture of one rib, right side, initial encounter for closed fracture (principal); W18.30XA Fall on same level, unspecified, initial encounter; Y92.009 Unspecified place in unspecified non-institutional (private) residence as the place of occurrence of the external cause; S52.502D Unspecified fracture of the lower end of left radius, subsequent encounter for closed fracture with routine healing; W19.XXXA Unspecified fall, initial encounter; F03.90 Unspecified dementia, unspecified severity, without behavioral disturbance, psychotic disturbance, mood disturbance, and anxiety; E86.0 Dehydration; D53.9 Nutritional anemia, unspecified; R26.81 Unsteadiness on feet; E03.9 Hypothyroidism, unspecified; M81.0 Age-related osteoporosis without current pathological fracture; Z91.81 History of falling; Z23 Encounter for immunization; Z66 Do not resuscitate; Z96.643 Presence of artificial hip joint, bilateral
CPT/HCPCS: 82607-90; 97110-GP; 97116-GP; 97161-GP; 97166-GO; 97530-GP; 97535-GO; G0008; G8978-GP-CK; G8979-GP-CJ; G8987-GO-CL; G8988-GO-CK; J1650; J2405

== ENCOUNTER → 2018-03-30 | Outpatient (CLI) | payer OTHER | LOC: BMCIMAGING 15:25 | PROVIDERS: ATTEND Orthopaedic Surgery Hand Surgery | DX: S52.522D Torus fracture of lower end of left radius, subsequent encounter for fracture with routine healing (principal); S52.615D Nondisplaced fracture of left ulna styloid process, subsequent encounter for closed fracture with routine healing; S22.41XD Multiple fractures of ribs, right side, subsequent encounter for fracture with routine healing ==

== ENCOUNTER 2018-10-02 16:34 | Emergency (ER) | payer OTHER ==
--- NOTE | 2018-10-02 16:50 | EDPHY ---
H & P Stated Complaint: Mechanical fall Time Seen by Provider: 10/02/18 16:42 HPI/ROS: CHIEF COMPLAINT: Fall, forehead laceration HISTORY OF PRESENT ILLNESS: Patient is an 83-year-old female with a history of chronic gait instability with multiple previous falls who lives at the [facility]. She states that she got up to get something to eat but lost her balance and fell and hit her head. She denies loss of consciousness. She denies headache or neck pain. She denies syncope. She also has a history of dementia, osteoporosis, and frequent urine infections. She denies having any urinary symptoms currently. She is not on blood thinners. The [facility] called paramedics because she is laceration to right eyebrow. Severity: Mild Modifying factors: None REVIEW OF SYSTEMS: Constitutional: denies: chills, fever, recent illness, recent injury EENTM: denies: blurred vision, double vision, nose congestion Respiratory: denies: cough, shortness of breath Cardiac: denies: chest pain, irregular heart rate, lightheadedness, palpitations Gastrointestinal/Abdominal: denies: abdominal pain, diarrhea, nausea, vomiting, blood streaked stools Genitourinary: denies: dysuria, frequency, hematuria, pain Musculoskeletal: See HPI Skin: See HPI Neurological: denies: headache, numbness, paresthesia, tingling, dizziness, weakness Hematologic/Lymphatic: denies: blood clots, easy bleeding, easy bruising Immunologic/allergic: denies: HIV/AIDS, transplant 10 systems reviewed and negative except as noted EXAM: GENERAL: Well-appearing, well-nourished and in no acute distress. HEAD: Laceration to right eyebrow, rest of head Atraumatic, normocephalic. EYES: Pupils equal round and reactive to light, extraocular movements intact, sclera anicteric, conjunctiva are normal. ENT: TMs normal, nares patent, oropharynx clear without exudates. Moist mucous membranes. NECK: Nontender Normal range of motion, supple without lymphadenopathy or JVD. LUNGS: Breath sounds clear to auscultation bilaterally and equal. No wheezes rales or rhonchi. HEART: Regular rate and rhythm without murmurs, rubs or gallops. ABDOMEN: Soft, nontender, normoactive bowel sounds. No guarding, no rebound. No masses appreciated. BACK: No CVA tenderness, no spinal tenderness, step-offs or deformities EXTREMITIES: Normal range of motion, no pitting or edema. No clubbing or cyanosis. NEUROLOGICAL: Cranial nerves II through XII grossly intact. Normal speech, moving all extremities. 5/5 strength, normal movement in all extremities, normal sensation, normal reflexes PSYCH: Normal mood, normal affect. SKIN: Warm, dry, normal turgor, no visible rashes or lesions. Source: Patient Exam Limitations: No limitations - Personal History Current Tetanus Diphtheria and Acellular Pertussis (TDAP): Unsure Tetanus Vaccine Date: < 10 years - Medical/Surgical History Hx Asthma: No Hx Chronic Respiratory Disease: No Hx Diabetes: No Hx Cardiac Disease: No Hx Renal Disease: No Hx Cirrhosis: No Hx Alcoholism: No Hx HIV/AIDS: No Hx Splenectomy or Spleen Trauma: No Other PMH: A-fib. Aortic valve stenosis. Hypothyroidism.Dementia. - Family History Significant Family History: No pertinent family hx - Social History Smoking Status: Never smoked Alcohol Use: Sober Drug Use: None Constitutional: Initial Vital Signs Temperature (C) 36.3 C 10/02/18 16:35 Heart Rate 70 10/02/18 16:35 Respiratory Rate 18 10/02/18 16:35 Blood Pressure 137/62 H 10/02/18 16:35 O2 Sat (%) 98 10/02/18 16:35 O2 Delivery Mode Room Air Allergies/Adverse Reactions: No Known Allergies Allergy (Verified 03/12/18 17:37) Home Medications: Medication Instructions Recorded Aspirin [Aspirin 81mg (*)] 81 mg PO HS 01/23/18 Donepezil HCl [Aricept] 11.5 mg PO HS 01/23/18 Levothyroxine [Synthroid 50 mcg 50 mcg PO DAILY06 01/23/18 (*)] Acetaminophen [Tylenol ES 500 mg 1,000 mg PO Q8H PRN 03/12/18 (*)] Calcium Carbonate [Oyster Shell 500 mg PO BID tab 03/15/18 Calcium 500 mg (*)] Cholecalciferol Vit D3 [Vitamin D3 2,000 units PO DAILY each 03/15/18 2000 units tab (OTC)] Lidocaine 4%/Menthol 1% [Icy Hot 1 patch TD DAILY patch 03/15/18 Lidocaine/Menthol 4%/1% Patch (*)] Melatonin [Melatonin 3 MG (*)] 3 mg PO HS tab 03/15/18 Naproxen Sodium [Aleve 220 MG (*)] 220 mg PO BID PRN tab 03/15/18 Patch Removal 1 ea TD DAILY21 patch 03/15/18 Polyethylene Glycol 3350 [Miralax 17 gm PO DAILY PRN pkt 03/15/18 17 gm (*)] Sennosides/Docusate Sodium 1 - 2 tab PO BID tab 03/15/18 [Senokot-S] Vitamin B Complex [Vitamin B 1 ea PO DAILY ea 03/15/18 Complex (OTC)] Medical Decision Making - Diagnostics Imaging: Discussed imaging studies w/ electroplater apprentice Radiologist Procedures: Procedure: Laceration repair. Verbal consent was obtained from the patient. The 3 cm right eyebrow laceration was anesthetized with 0.5% bupivacaine with epinephrine locally infiltrated. The wound was irrigated copiously according to protocol, draped and explored to its base. It was approximately 1 cm deep. There were no deep structures involved. No tendon, nerve, or vascular injury was identified when explored through full range of motion. No foreign body was identified. The wound was repaired with 6.0 Prolene, 7 sutures, interrupted. The wound repair was moderately complex with flap realignment. The procedure was performed by myself. A dressing was then placed with sterile gauze and bacitracin. ED Course/Re-evaluation: Patient tolerated suture repair. Discussed CT results. She is reassured. She is eager to go home. Discussed follow-up and indications for returning. Differential Diagnosis: Partial list of the Differential diagnosis considered include but were not limited to; laceration, facial fracture and although unlikely based on the history and physical exam, I also considered hemorrhage, neck injury, syncope. I discussed these differential diagnoses and the plan with the patient as well as the usual and expected course. The patient understands that the diagnosis is provisional and that in medicine we are not always correct and that further workup is often warranted. Usual and customary warnings were given. All of the patient's questions were answered. The patient was instructed to return to the emergency department should the symptoms at all worsen or return, otherwise to followup with the physician as we discussed. Departure - Departure Disposition: Home, Routine, Self-Care Clinical Impression: Fall Qualifiers: Encounter type: initial encounter Qualified Code(s): W19.XXXA - Unspecified fall, initial encounter Forehead laceration Qualifiers: Encounter type: initial encounter Qualified Code(s): S01.81XA - Laceration without foreign body of other part of head, initial encounter Condition: Fair Instructions: Care For Your Stitches (DC), Laceration (ED) Additional Instructions: Have your 7 stitches removed in 7 days Referrals: Patient,NotPresent [Unknown] - As per Instructions Leigh Quintanilla MD [Medical Doctor] - As per Instructions
[2018-10-02 17:46] VITALS: BP 149/69
--- NOTE | 2018-10-02 17:48 | ASMTCMCOM ---
CM Note CM Note Notes: Case Management asked to confirm transportation back to [facility] in [place] upon discharge. This CM spoke with patient's daughter Lashell and confirmed that patient has been at [facility] since she discharged to SNF from [facility] in April. Patient now resides at [facility] in LTC. She is comfortable with plans for patient to return to [facility] if/when medically cleared. Patient is expected to discharge from the ER within the hour and Lashell is available for transporation. Jeanette HEMPHILL will call Lashell once she is medically cleared and/or if there are any changes to this plan. This CM contatced Elidia at [facility] to inform of patient's pending discharge and to confirm appropriate number for report. CM available prn for further needs Date Signed: 10/02/2018 05:47 PM Electronically Signed By:Herlinda Bazan RN
== END 2018-10-02 18:16 | disposition home or self-care (01) ==
LOC: EDUNIT#
PROC: 08QNXZZ Repair Right Upper Eyelid, External Approach (ICD-10-PCS; principal; 2018-10-02)
DX: S01.111A Laceration without foreign body of right eyelid and periocular area, initial encounter (principal); F03.90 Unspecified dementia, unspecified severity, without behavioral disturbance, psychotic disturbance, mood disturbance, and anxiety; W01.198A Fall on same level from slipping, tripping and stumbling with subsequent striking against other object, initial encounter; Y92.129 Unspecified place in nursing home as the place of occurrence of the external cause